=== PATIENT | female | born 1955 | race Caucasian/White ===

== ENCOUNTER 2018-01-28 08:01 | Emergency (ER) | payer MEDICAID, SELFPAY ==
[2018-01-28 08:02] VITALS: BP 126/61; PULSE 63; RESP 16; TEMP 36.6; O2SAT 95; BMI 30.2
--- NOTE | 2018-01-28 08:18 | ED.VISSUMM ---
- ER Visit Summary Date of Service: 01/28/18 Chief Complaint: Back pain History of Present Illness: The patient is a 62 F who presents with back pain. Over the past couple of days her chronic back pain has been getting worse. This morning it was unrelieved with Tylenol should she called EMS. The pain is in the lumbar spine. It is sharp and radiates to each leg. She does have a history of back pain. Denies any dysuria or hematuria. No bowel or bladder incontinence. Falls or any new injuries to the low back. Physical Examination: Vital signs reviewed. HEENT exam unremarkable. Heart is regular rate and rhythm without murmurs. Lungs are clear to auscultation. Abdomen is soft and nontender. Back is diffusely tender in the lumbar region. extremities reveal no edema. Skin exam normal. Neurologic exam normal. Test Results: None indicated Emergency Department Course and Treatment: Patient was treated with Norflex and Toradol intramuscularly Treatment Plan: Patient feels better after medications. This is likely an acute exacerbation of her low back pain. I will give her naproxen and Flexeril to take at home for short period of time. She will need follow-up with her PCP Disposition: Discharge Impression: Acute on chronic low back pain This note was generated with [employer] dictation software. It may contain incorrect words, spelling, and punctuation that were not noted in review of the chart prior to signing ED Disposition - Plan for ED Patient: Chief Complaint: Back Referrals: Kavita Collado MD [Primary Care Provider] -
[2018-01-28] MEDS: Orphenadrine 60 MG/2 ML Ampul IM (08:31)
[2018-01-28] MEDS: Ketorolac 30 MG/ML Syringe IM (08:31)
--- NOTE | 2018-01-28 08:57 | ED.DEP ---
ED Disposition - Plan for ED Patient: Disposition: Home or Assisted Living Chief Complaint: Back Instructions: ED Neck Back Pain General Prescriptions: Naproxen [Naprosyn] 500 mg PO BID PRN #20 tab Cyclobenzaprine [Flexeril] 10 mg PO TID PRN #20 tab PRN Reason: Muscle Spasm Referrals: Kavita Collado MD [Primary Care Provider] -
== END 2018-01-28 09:58 | disposition home or self-care (01) ==
PROVIDERS: Emergency Provider Emergency Medicine; Family Provider Family Medicine; PCP Family Medicine
DX: M54.5 Low back pain (principal); G89.29 Other chronic pain; I25.10 Atherosclerotic heart disease of native coronary artery without angina pectoris; I10 Essential (primary) hypertension; K21.9 Gastro-esophageal reflux disease without esophagitis; Z79.82 Long term (current) use of aspirin; Z79.899 Other long term (current) drug therapy
CPT/HCPCS: 96372; 99284

== ENCOUNTER 2018-09-20 14:48 | Observation (INO) | payer MEDICAID, SELFPAY ==
[2018-09-20] VITALS (8 sets, daily range): BP systolic 134–136; BP diastolic 65–79; PULSE 49–68; RESP 14–20; TEMP 36.6–37; O2SAT 96–98; BMI 35.6; BMI 33.3; BMI 33.4
--- NOTE | 2018-09-20 14:58 | EKG12_ITS ---
Test Reason : CP ADMIT Blood Pressure : / mmHG Vent. Rate : 067 BPM Atrial Rate : 067 BPM P-R Int : 190 ms QRS Dur : 074 ms QT Int : 434 ms P-R-T Axes : 073 006 030 degrees QTc Int : 458 ms Normal sinus rhythm Septal infarct , age undetermined Nonspecific ST segment abnormality Abnormal ECG Confirmed by NIMCO DIAZ, MADELEINE ([id number]), newspaper managing editor MARIPOSA MORGAN ([id number]) on 09/23/2018 2:10:12 PM Referred By: Leilani Chiang Confirmed By:MADELEINE RINALDI MD
--- NOTE | 2018-09-20 15:00 | RAD_ITS ---
STUDY: X-RAY CHEST REASON FOR EXAM: Female, 63 years old. Chest pain. TECHNIQUE: Single AP portable view of the chest. COMPARISON: Comparison is made with prior study dated October 14, 2017. FINDINGS: EKG electrodes are seen. Stable mild increased interstitial markings at the lung bases suggestive of scarring. There has been essentially no change. There is no demonstrated pleural abnormality. Normal size heart. Normal mediastinum and marie. Normal visualized pulmonary arteries. There is atherosclerotic tortuosity of the aortic arch and descending thoracic aorta. There are degenerative changes of the visualized thoracic spine. Normal visualized ribs, clavicles, and shoulders. There is no demonstrated abnormality of the visualized soft tissue structures of the upper abdomen. RAD/Chest 1 View (Portable) IMPRESSION: Stable examination. No acute abnormality is seen. Electronically Signed: Judd Franklin MD at 15:35 EST Tel [phone], Service support ,
--- NOTE | 2018-09-20 15:04 | ED.VISSUMM ---
- ER Visit Summary Date of Service: 09/20/18 Chief Complaint: Chest pain and shortness of breath History of Present Illness: The patient is a 63 F who arrived by ambulance from [facility] because of chest pain and shortness of breath. She was putting away clothes in her room. She is not a good informant because of cognitive impairment. She is presently pain-free. EKG that was obtained by EMS was after her pain resolved. There is no history of PE or DVT. There is a remote history of breast cancer. She denies fever or chills. She denies ocular, visual or auditory symptoms. She presently denies chest pain or shortness of breath. She states she was not sick to her stomach and staff member from [facility] states she was not diaphoretic. She is uncertain whether she was pale. She denies leg pain or leg swelling. Please read written note for complete detail Physical Examination: Vital signs are noted and remarkable for blood pressure 136/65 which is slightly elevated. BMI is 35.6. Head is atraumatic normocephalic. Pupils are equal round reactive. Extraocular muscles are intact. TMs are pearly white with landmarks noted. Nares patent with no drainage. Posterior pharynx without erythema or exudate. Uvula is midline. There is no dysphonia or dysphasia. Trachea is midline. There is no stridor with auscultation of the neck. Heart is regular without murmur, gallop or rub. S1 and S2 are normal. Lungs are clear to auscultation with good movement of air bilaterally. Abdomen is soft nontender no palpable cell mass or abdominal bruit. There is no hepatospleno megaly and negative [place] sign. There is no asymmetry, swelling, discoloration, leg vein distention, palpable cords or tenderness along the distribution of the deep venous system. She is alert she is oriented. Motor sensory are intact. Cranial 2 through 12 are intact. Her affect is normal. Test Results: EKG reveals a sinus rhythm with a ventricular rate of 67. Anterior force is decreased. [place] interval, QRS duration and QT interval are normal. [place] is normal. There is no ischemic changes noted. EKG was obtained when patient was pain-free. Portable chest x-ray reveals normal cardiac silhouette, mediastinum, lung parenchyma. Osseous structures are normal. CBC, basic metabolic panel and troponin are all normal. Emergency Department Course and Treatment: We will obtain EKG because of chest pain and cardiac workup was undertaken. This may also represent GI since she has a history of GERD. Her risk factors for coronary disease are smoking and hypertension. Since there is a remote history of PE one needs to consider PE however doubt since she is not tachycardic or tachypneic presently. Per old records there is history of heart problems when she was younger. Uncertain specifically what the heart problem may be. Treatment Plan: Observation and further testing since patient is symptom free. Disposition: 23-hour observation PCU Impression: Chest pain with dyspnea History of hypertension History of tobacco use History of hypothyroidism This note was generated with [employer] dictation software. It may contain incorrect words, spelling, and punctuation that were not noted in review of the chart prior to signing ED Disposition - Plan for ED Patient: Chief Complaint: Chest Pain Referrals: Care Physician,No Primary [Primary Care Provider] -
--- NOTE | 2018-09-20 15:08 | ED.DCSUM_ITS ---
- ER Visit Summary Date of Service: 09/20/18 Chief Complaint: Chest pain and shortness of breath History of Present Illness: The patient is a 63 F who arrived by ambulance from [facility] because of chest pain and shortness of breath. She was putting away clothes in her room. She is not a good informant because of cognitive impairment. She is presently pain-free. EKG that was obtained by EMS was after her pain resolved. There is no history of PE or DVT. There is a remote history of breast cancer. She denies fever or chills. She denies ocular, visual or auditory symptoms. She presently denies chest pain or shortness of breath. She states she was not sick to her stomach and staff member from [facility] states she was not diaphoretic. She is uncertain whether she was pale. She denies leg pain or leg swelling. Please read written note for complete detail Physical Examination: Vital signs are noted and remarkable for blood pressure 136/65 which is slightly elevated. BMI is 35.6. Head is atraumatic normocephalic. Pupils are equal round reactive. Extraocular muscles are intact. TMs are pearly white with landmarks noted. Nares patent with no drainage. Posterior pharynx without erythema or exudate. Uvula is midline. There is no dysphonia or dysphasia. Trachea is midline. There is no stridor with auscultation of the neck. Heart is regular without murmur, gallop or rub. S1 and S2 are normal. Lungs are clear to auscultation with good movement of air bilaterally. Abdomen is soft nontender no palpable cell mass or abdominal bruit. There is no hepatospleno megaly and negative [place] sign. There is no asymmetry, swelling, discoloration, leg vein distention, palpable cords or tenderness along the distribution of the deep venous system. She is alert she is oriented. Motor sensory are intact. Cranial 2 through 12 are intact. Her affect is normal. Test Results: EKG reveals a sinus rhythm with a ventricular rate of 67. Anterior force is decreased. [place] interval, QRS duration and QT interval are normal. [place] is normal. There is no ischemic changes noted. EKG was obtained when patient was pain-free. Portable chest x-ray reveals normal cardiac silhouette, mediastinum, lung parenchyma. Osseous structures are normal. CBC, basic metabolic panel and troponin are all normal. Emergency Department Course and Treatment: We will obtain EKG because of chest pain and cardiac workup was undertaken. This may also represent GI since she has a history of GERD. Her risk factors for coronary disease are smoking and hypertension. Since there is a remote history of PE one needs to consider PE however doubt since she is not tachycardic or tachypneic presently. Per old records there is history of heart problems when she was younger. Uncertain specifically what the heart problem may be. Treatment Plan: Observation and further testing since patient is symptom free. Disposition: 23-hour observation PCU Impression: Chest pain with dyspnea History of hypertension History of tobacco use History of hypothyroidism This note was generated with [employer] dictation software. It may contain incorrect words, spelling, and punctuation that were not noted in review of the chart prior to signing ED Disposition - Plan for ED Patient: Chief Complaint: Chest Pain Referrals: Care Physician,No Primary [Primary Care Provider] -
[2018-09-20 15:23] LABS: Absolute Lymphocyte Count 1.44 X10^3/ul (0.83-4.51); Absolute Neutrophil Count 4.2 X10^3/uL (2.0-7.7); Basophil# 0.04 X10^3/uL; Basophil% 0.6 % (0-1); Eosinophil# 0.05 X10^3/uL; Eosinophils% 0.8 % (0-5); Hematocrit 37.9 % (37-47); Hemoglobin 12.5 g/dl (12.0-15.0); Lymphocyte # 1.44 X10^3/ul (4.0); Lymphocyte % 23.1 % (19-41); Mean Corpuscular Hgb 30.7 pg (27.0-32.0); Mean Corpuscular Volume 93.1 fL (81-99); Mean Platelet Vol. 9.5 fl (6.2-12.0); Monocyte# 0.55 X10^3/uL; Monocyte% 8.8 % (0-10); Neutrophil # 4.16 X10^3/uL (2.7-7.7); Neutrophil % 66.7 % (47-70); Platelet Count 209 K/mm3 (150-450); RBC Distribution Width CV 12.9 % (11.6-14.6); RBC Distribution Width SD 43.4 fl (35.1-43.9); Red Blood Count 4.07 M/mm3 (4.2-5.4); White Blood Count 6.2 K/mm3 (4.4-11.0)
[2018-09-20 15:33] LABS: Anion Gap 9 (5-15); BUN 12 mg/dL (7-18); BUN/Creat Ratio 13.4 RATIO (10-20); Calcium,Total 8.5 mg/dL (8.5-10.1); Chloride 107 mmol/L (98-107); Creatinine, Serum 0.89 mg/dL (0.55-1.02); EST Glomerular Filtration Rate 68 mL/min (>60); Est Glom Filt Rate - Afr Amer 82 mL/min (>60); Glucose 97 mg/dL (74-106); Potassium 3.8 mmol/L (3.5-5.1); Sodium Level 144 mmol/L (136-145)
[2018-09-20 15:34] LABS: POSITIVE COUNT NO; POSITIVE DIFFERENTIAL NO; POSITIVE MORPHOLOGY NO
--- NOTE | 2018-09-20 15:54 | NURSING ---
125 OBS CP, DYSPNEA KORAM
--- NOTE | 2018-09-20 16:17 | EKG12_ITS ---
Test Reason : CP Blood Pressure : / mmHG Vent. Rate : 067 BPM Atrial Rate : 067 BPM P-R Int : 164 ms QRS Dur : 072 ms QT Int : 434 ms P-R-T Axes : 071 010 021 degrees QTc Int : 458 ms Normal sinus rhythm Septal infarct , age undetermined , cannot be excluded Abnormal ECG Confirmed by NIMCO DIAZ, MADELEINE ([id number]), senior technical editor MARIPOSA MORGAN ([id number]) on 09/23/2018 1:31:59 PM Referred By: Leilani Chiang Confirmed By:MADELEINE RINALDI MD
--- NOTE | 2018-09-20 17:06 | PCM.HP.STD ---
History of Present Illness Date of Admission: 09/20/18 Chief Complaint: chest pain The patient is a 63 year old F past medical history which includes hypertension, hyperlipidemia hypothyroidism and MDRD as well as breast cancer status post left breast mastectomy. She was admitted through the ED on 09/20/2018 with a complaint of chest pain which started while she was in a [facility]. According to case packer and sealer, patient is usually very sedentary was helping the [facility] staff clean out her room. Also exerting herself and cleaning out the room she started having left-sided chest pain. Pain had no aggravating or relieviugn facdtors and was sharp in nature. She has had such recurring chest pain in the past.Chest pain improved with nitroglycerin and aspirin. SHe is being admitted to be managed for chest pain, to rule out ACS. The ED, vitals were essentially stable and chest x-ray showed no acute cardiopulmonary process. Initial troponin was negative. EKG showed no acute ST changes. She is been admitted to be managed for chest pain to rule out ACS. [] Past Medical History Past Medical History (Chronic Problems): Chronic Problems Nicotine abuse (Chronic) HTN (hypertension) (Chronic) Breast cancer (Chronic) Allergies milk Adverse Reaction (Verified 07/23/17 08:39) Diarrhea Home Medications: Ambulatory Orders Medication Instructions Recorded Omeprazole [Prilosec] 20 mg PO DAILY 12/11/16 Simvastatin [Zocor] 20 mg PO QHS 12/11/16 Amlodipine [Norvasc] 10 mg PO DAILY 04/04/17 Cholecalciferol (Vitamin D3) 2,000 units PO DAILY 04/04/17 [Vitamin D3] Loratadine 10 mg PO DAILY 04/04/17 Mirabegron [Myrbetriq] 50 mg PO DAILY 07/23/17 Tamoxifen Citrate [Nolvadex] 20 mg PO DAILY 07/23/17 Paliperidone [Paliperidone ER] 9 mg PO QHS 08/21/17 Ranitidine [Zantac] 150 mg PO BID 08/21/17 Senna [Senokot] 1 tablet PO BID 08/21/17 Solifenacin Succinate [Vesicare] 10 mg PO QHS 08/21/17 Acetaminophen [Tylenol] 325 mg PO Q6H PRN PRN 09/20/18 Aspirin E.C. [Ecotrin] 81 mg PO DAILY 09/20/18 Calcium Carbonate/Vitamin D3 1 tab PO DAILY 09/20/18 [Calcium 600-Vit D3 200 Tablet] Hydrochlorothiazide 12.5 mg PO DAILY 09/20/18 Levothyroxine Sodium [Synthroid] 75 mcg PO DAILY 09/20/18 Lisinopril [Zestril] 40 mg PO DAILY 09/20/18 Metoprolol Tartrate [Lopressor 25 mg PO BID 09/20/18 (beta porfirio)] Surgical History: - - left breast mastectomy Psychiatric History: Schizophrenia DIRECTOR EDUCATION History: No pertinent DIRECTOR EDUCATION history Smoking Status: Current every day smoker Tobacco Use: Cigarettes, Cigars - *Family History Maternal History Items: - Paternal History Items: - Review of Systems Constitutional: Denies: Chills, Fever, Malaise, Weakness, Weight Change, Fatigue HEENT: Denies: Head Aches, Sinus Congestion, Sinus Drainage Cardiovascular: Reports: Chest Pain. Denies: Chest Pressure, Chest Tightness, Edema, Light Headedness, Orthopnea, Palpitations, Syncope Respiratory: Denies: Cough, Pleuritic Pain, Shortness of Breath, Shortness of breath at rest, Sputum production Gastrointestinal: Denies: Abdominal Pain, Nausea, Vomiting Genitourinary: Denies: Dysuria Musculoskeletal: Denies: Joint Pain, Joint Tenderness Skin: Denies: Rash, Wounds Neurological: Denies: Numbness, Tingling, Focal weakness Psychiatric: Denies: Anxiety, Depression, Homicidal Ideations, Suicidal Ideations Hematologic/ Lymphatic: Denies: Easy Bruising, Easy Bleeding VTE Information - Inpt Only VTE Present on Admission: No VTE Pharm Prophylaxis ordered?: Yes - Physical Exam General: Alert, Oriented x3, Cooperative, No apparent distress HEENT: Atraumatic, PERRLA, EOMI, Normocephalic Oral: Moist Mucosa Neck: Supple, No JVD, Negative Carotid Bruits Lungs: Clear to auscultation, Normal air movement, No rhonchi, No wheeze, No rales Cardiovascular: Regular rate, Regular Rhythm, Normal S1, Normal S2, No murmurs Abdomen: Bowel Sounds Present, Soft, Non Tender, Non-Distended, No Hepato-splenomegaly Extremities: No clubbing, No cyanosis, No edema, Capillary Refill Less than 3 Seconds Skin: No rashes, No breakdown Musculoskeletal: No Tenderness to Palpation of Joints or Extremities Lymphatic: No Cervical, Supraclavicular, or Inguinal Adenopathy Neurological: Cranial nerves II-XII grossly intact, Neuro grossly intact, Motor Exam 5/5 strength throughout Psych/Mental Status: Normal Affect, Appropriate, Alert and oriented to time, place, person, mood and affect Vital Signs Temp Pulse Resp BP Pulse Ox 98 F 68 18 134/77 H 97 09/20/18 16:25 09/20/18 16:25 09/20/18 16:25 09/20/18 16:25 09/20/18 16:25 Oxygen Delivery Method Room Air Weight: 182 lb 8.684 oz Body Mass Index (BMI) 33.3 Laboratory Tests Past 24 Hrs 09/20/18 09/20/18 15:00 15:00 WBC 6.2 RBC 4.07 L Hgb 12.5 Hct 37.9 MCV 93.1 MCH 30.7 MCHC 33.0 RDW 12.9 RDW Differential 43.4 Plt Count 209 MPV 9.5 Immature Gran % (Auto) 0.000 Neut % (Auto) 66.7 Lymph % (Auto) 23.1 [place] % (Auto) 8.8 Eos % (Auto) 0.8 Baso % (Auto) 0.6 Absolute Neuts (auto) 4.2 Absolute Lymphs (auto) 1.44 Total Counted Not Reportable Sodium 144 Potassium 3.8 Chloride 107 Carbon Dioxide 28.0 Anion Gap 9 BUN 12 Creatinine 0.89 Estim Creat Clear Calc 52.50 Est GFR (MDRD) Af Amer 82 Est GFR (MDRD) Non-Af 68 BUN/Creatinine Ratio 13.4 Glucose 97 Calcium 8.5 Troponin I < 0.015 Diagnostic Data Chest X-Ray 09/20/18 15:00 IMPRESSION: Stable examination. No acute abnormality is seen. Electronically Signed: Judd Franklin MD at 15:35 EST Tel [phone], Service support , Assessment/Plan All Active Problems Lives in [facility] (Acute) CAD (coronary artery disease) (Acute) Acute bronchitis (Acute) Chest pain (Acute) 63-year-old female presents with a complaint of chest pain 1. Chest pain, to rule out ACS has had repeated episodes of such chest pain, according to her dependency case manager Nuclear stress testing January 2016 which was negative. Troponin was negative. To PCU with telemetry. Cycle troponin. Nitroglycerin as needed. Aspirin 81 mg daily. Stress test tomorrow. Low clinical suspicion for PE and so not do CT PE 2. Hypertension: controlled. On amlodipine 10mg daily, hydrochlorothiazide 12.5 mg daily, lisinopril 40 mg daily and metoprolol 25 mg twice daily. We will continue to monitor. 4. Hypothyroidism: On Synthroid. 5.-Hyperlipidemia: On simvastatin 10 mg nightly. 5 schizophrenia: on paliperidone. 7. History of breast cancer status post left mastectomy: On tamoxifen. Breast cancer was about 10 years ago approximately. DVT prophylaxis: heparin Code status: Patient and case packer and sealer counseled extensively about different types of CODE STATUS including full code, DNR CCA and DNR CCA. Patient elects to be full code. Total [id number] time 17 minutes Code Visit OBSV E&M: 61947 Initial observation care L3 Procedures: 65846 Advncd Care Plan 30 Min
--- NOTE | 2018-09-20 17:12 | HP.PCM_ITS ---
History of Present Illness Date of Admission: 09/20/18 Chief Complaint: chest pain The patient is a 63 year old F past medical history which includes hypertension, hyperlipidemia hypothyroidism and MDRD as well as breast cancer status post left breast mastectomy. She was admitted through the ED on 09/20/2018 with a complaint of chest pain which started while she was in a long term. According to outsole caser, patient is usually very sedentary was helping the long term staff clean out her room. Also exerting herself and cleaning out the room she started having left-sided chest pain. Pain had no aggravating or relieviugn facdtors and was sharp in nature. She has had such recurring chest pain in the p ast.Chest pain improved with nitroglycerin and aspirin. SHe is being admitted to be managed for chest pain, to rule out ACS. The ED, vitals were essentially stable and chest x-ray showed no acute cardiopulmonary process. Initial troponin was negative. EKG showed no acute ST changes. She is been admitted to be managed for chest pain to rule out ACS. [] Past Medical History Past Medical History (Chronic Problems): Chronic Problems Nicotine abuse (Chronic) HTN (hypertension) (Chronic) Breast cancer (Chronic) Allergies milk Adverse Reaction (Verified 07/23/17 08:39) Diarrhea Home Medications: Ambulatory Orders Medication Instructions Recorded Omeprazole [Prilosec] 20 mg PO DAILY 12/11/16 Simvastatin [Zocor] 20 mg PO QHS 12/11/16 Amlodipine [Norvasc] 10 mg PO DAILY 04/04/17 Cholecalciferol (Vitamin D3) 2,000 units PO DAILY 04/04/17 [Vitamin D3] Loratadine 10 mg PO DAILY 04/04/17 Mirabegron [Myrbetriq] 50 mg PO DAILY 07/23/17 Tamoxifen Citrate [Nolvadex] 20 mg PO DAILY 07/23/17 Paliperidone [Paliperidone ER] 9 mg PO QHS 08/21/17 Ranitidine [Zantac] 150 mg PO BID 08/21/17 Senna [Senokot] 1 tablet PO BID 08/21/17 Solifenacin Succinate [Vesicare] 10 mg PO QHS 08/21/17 Acetaminophen [Tylenol] 325 mg PO Q6H PRN PRN 09/20/18 Aspirin E.C. 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 Denies: Chest Pressure, Chest Tightness, Edema, Light Headedness, Orthopnea, Palpitations, Syncope Respiratory: Denies: Cough, Pleuritic Pain, Shortness of Breath, Shortness of breath at rest, Sputum production Gastrointestinal: Denies: Abdominal Pain, Nausea, Vomiting Genitourinary: Denies: Dysuria Musculoskeletal: Denies: Joint Pain, Joint Tenderness Skin: Denies: Rash, Wounds Neurological: Denies: Numbness, Tingling, Focal weakness Psychiatric: Denies: Anxiety, Depression, Homicidal Ideations, Suicidal Ideations Hematologic/ Lymphatic: Denies: Easy Bruising, Easy Bleeding VTE Information - Inpt Only VTE Present on Admission: No VTE Pharm Prophylaxis ordered?: Yes - Physical Exam General: Alert, Oriented x3, Cooperative, No apparent distress HEENT: Atraumatic, PERRLA, EOMI, Normocephalic Oral: Moist Mucosa Neck: Supple, No JVD, Negative Carotid Bruits Lungs: Clear to auscultation, Normal air movement, No rhonchi, No wheeze, No rales Cardiovascular: Regular rate, Regular Rhythm, Normal S1, Normal S2, No murmurs Abdomen: Bowel Sounds Present, Soft, Non Tender, Non-Distended, No Hepato- splenomegaly Extremities: No clubbing, No cyanosis, No edema, Capillary Refill Less than 3 Seconds Skin: No rashes, No breakdown Musculoskeletal: No Tenderness to Palpation of Joints or Extremities Lymphatic: No Cervical, Supraclavicular, or Inguinal Adenopathy Neurological: Cranial nerves II-XII grossly intact, Neuro grossly intact, Motor Exam 5/5 strength throughout Psych/Mental Status: Normal Affect, Appropriate, Alert and oriented to time, place, person, mood and affect Vital Signs Temp Pulse Resp BP Pulse Ox 98 F 68 18 134/77 H 97 09/20/18 16:25 09/20/18 16:25 09/20/18 16:25 09/20/18 16:25 09/20/18 16:25 Oxygen Delivery Method Room Air Weight: 182 lb 8.684 oz Body Mass Index (BMI) 33.3 Laboratory Tests Past 24 Hrs 09/20/18 09/20/18 15:00 15:00 WBC 6.2 RBC 4.07 L Hgb 12.5 Hct 37.9 MCV 93.1 MCH 30.7 MCHC 33.0 RDW 12.9 RDW Differential 43.4 Plt Count 209 MPV 9.5 Immature Gran % (Auto) 0.000 Neut % (Auto) 66.7 Lymph % (Auto) 23.1 Sutter % (Auto) 8.8 Eos % (Auto) 0.8 Baso % (Auto) 0.6 Absolute Neuts (auto) 4.2 Absolute Lymphs (auto) 1.44 Total Counted Not Reportable Sodium 144 Potassium 3.8 Chloride 107 Carbon Dioxide 28.0 Anion Gap 9 BUN 12 Creatinine 0.89 Estim Creat Clear Calc 52.50 Est GFR (MDRD) Af Amer 82 Est GFR (MDRD) Non-Af 68 BUN/Creatinine Ratio 13.4 Glucose 97 Calcium 8.5 Troponin I < 0.015 Diagnostic Data Chest X-Ray 09/20/18 15:00 IMPRESSION: Stable examination. No acute abnormality is seen. Electronically Signed: Judd Franklin MD at 15:35 EST Tel [phone], Service support , Assessment/Plan All Active Problems Lives in long term (Acute) CAD (coronary artery disease) (Acute) Acute bronchitis (Acute) Chest pain (Acute) 63-year-old female presents with a complaint of chest pain 1. Chest pain, to rule out ACS * has had repeated episodes of such chest pain, according to her adult protective caseworker * Nuclear stress testing January 2016 which was negative. * Troponin was negative. * To PCU with telemetry. Cycle troponin. * Nitroglycerin as needed. Aspirin 81 mg daily. * Stress test tomorrow. * Low clinical suspicion for PE and so not do CT PE * 2. Hypertension: controlled. On amlodipine 10mg daily, hydrochlorothiazide 12.5 mg daily, lisinopril 40 mg daily and metoprolol 25 mg twice daily. We will continue to monitor. 4. Hypothyroidism: On Synthroid. 5.-Hyperlipidemia: On simvastatin 10 mg nightly. 5 schizophrenia: on paliperidone. 7. History of breast cancer status post left mastectomy: On tamoxifen. Breast cancer was about 10 years ago approximately. DVT prophylaxis: heparin Code status: Patient and outsole caser counseled extensively about different types of CODE STATUS including full code, DNR CCA and DNR CCA. Patient elects to be full code. Total [id number] time 17 minutes Code Visit OBSV E&M: 75265 Initial observation care L3 Procedures: 25295 Advncd Care Plan 30 Min
[2018-09-20] MEDS: Famotidine 20 MG Tablet PO (21:21)
[2018-09-20] MEDS: Senna Tablet 1 TABLET PO (21:21)
[2018-09-20] MEDS: Tolterodine Tartrate 4 MG CAP.SA PO (21:21)
[2018-09-20] MEDS: Metoprolol Tartrate 25 MG Tablet PO (21:21)
[2018-09-20] MEDS: 0.9% NaCl Peripheral Flush Adult/Peds IV (21:22)
[2018-09-20] MEDS: Heparin Injection (Vial) 5,000 UNIT/ML VIAL 5000 UNIT SC (21:22)
[2018-09-20] MEDS: Atorvastatin Calcium 10 MG Tablet PO (21:22)
[2018-09-21] VITALS (7 sets, daily range): BP systolic 123–148; BP diastolic 63–86; PULSE 55–71; RESP 16–18; TEMP 36.6–36.8; O2SAT 94–96
[2018-09-21] MEDS: Aspirin E.C. 81 MG Tablet PO (05:29)
[2018-09-21] MEDS: Lisinopril 40 MG Tablet PO (05:30)
[2018-09-21] MEDS: Levothyroxine 75 MCG Tablet PO (05:30)
[2018-09-21 05:40] LABS: Absolute Lymphocyte Count 1.43 X10^3/ul (0.83-4.51); Absolute Neutrophil Count 2.6 X10^3/uL (2.0-7.7); Basophil# 0.05 X10^3/uL; Basophil% 1.1 % (0-1); Eosinophil# 0.04 X10^3/uL; Eosinophils% 0.9 % (0-5); Hematocrit 40.5 % (37-47); Hemoglobin 13.5 g/dl (12.0-15.0); Lymphocyte # 1.43 X10^3/ul (4.0); Lymphocyte % 31.6 % (19-41); Mean Corp Hgb Conc 33.3 g/gl (32-36); Mean Corpuscular Hgb 31.2 pg (27.0-32.0); Mean Corpuscular Volume 93.5 fL (81-99); Mean Platelet Vol. 9.6 fl (6.2-12.0); Monocyte# 0.44 X10^3/uL; Monocyte% 9.7 % (0-10); Neutrophil # 2.57 X10^3/uL (2.7-7.7); Neutrophil % 56.7 % (47-70); Platelet Count 212 K/mm3 (150-450); RBC Distribution Width CV 12.9 % (11.6-14.6); RBC Distribution Width SD 43.1 fl (35.1-43.9); Red Blood Count 4.33 M/mm3 (4.2-5.4); White Blood Count 4.5 K/mm3 (4.4-11.0)
[2018-09-21 05:44] LABS: POSITIVE COUNT NO; POSITIVE DIFFERENTIAL NO; POSITIVE MORPHOLOGY NO
--- NOTE | 2018-09-21 05:55 | EKG12_ITS ---
Test Reason : AM EKG Blood Pressure : / mmHG Vent. Rate : 058 BPM Atrial Rate : 058 BPM P-R Int : 162 ms QRS Dur : 088 ms QT Int : 482 ms P-R-T Axes : 067 012 073 degrees QTc Int : 473 ms Sinus bradycardia Septal infarct , age undetermined , cannot be excluded Abnormal ECG Confirmed by NIMCO DIAZ, MADELEINE ([id number]), online content editor MARIPOSA MORGAN ([id number]) on 09/23/2018 1:50:25 PM Referred By: Leilani Chiang Confirmed By:MADELEINE RINALDI MD
[2018-09-21 05:58] LABS: Anion Gap 7 (5-15); BUN 11 mg/dL (7-18); BUN/Creat Ratio 14.2 RATIO (10-20); Calcium,Total 8.3 mg/dL (8.5-10.1); Chloride 113 mmol/L (98-107); Creatinine, Serum 0.78 mg/dL (0.55-1.02); EST Glomerular Filtration Rate 80 mL/min (>60); Est Glom Filt Rate - Afr Amer 97 mL/min (>60); Glucose 91 mg/dL (74-106); Potassium 3.7 mmol/L (3.5-5.1); Sodium Level 144 mmol/L (136-145)
[2018-09-21 06:04] LABS: International Normalized Ratio 1.1; Partial Thromboplast Time 25.5 Seconds (24.1-36.2); Prothrombin Time (Protime)PT. 13.9 SECONDS (11.7-14.9)
[2018-09-21] MEDS: hydroCHLOROthiazide 12.5mg 12.5 MG PO (08:50)
[2018-09-21] MEDS: Metoprolol Tartrate 25 MG Tablet PO (08:50)
[2018-09-21] MEDS: Loratadine 10 MG Tablet PO (08:50)
[2018-09-21] MEDS: Famotidine 20 MG Tablet PO (08:51)
[2018-09-21] MEDS: amLODIPine 10 MG Tablet PO (08:51)
[2018-09-21] MEDS: Calcium Carb/Vitamin D 1 TABLET Tablet PO (08:51)
[2018-09-21] MEDS: Mirabegron 50 MG TAB.ER.24H PO (08:51)
[2018-09-21] MEDS: Tamoxifen 10 MG Tablet 20 MG PO (08:51)
[2018-09-21] MEDS: Pantoprazole Sodium 20 MG Tablet PO (08:52)
[2018-09-21] MEDS: Senna Tablet 1 TABLET PO (08:52)
--- NOTE | 2018-09-21 11:03 | STRESSREP_ITS ---
Stress Test Report Date: 02/05/2018 Procedure: Pharmacologic stress nuclear imaging study Indications: Chest pain Consent: Per the patient Procedure: The patient underwent pharmacologic (Regadenoson) evaluation with a peak heart rate of 99 beats per minute (62 predicted maximal heart rate) and a peak blood pressure of 134/78 mmHg. The baseline ECG demonstrated normal sinus rhythm. The peak pharmacologic ECG demonstrated no obvious ECG changes. There were no cardiac dysrhythmias pretest, during pharmacologic infusion, or recovery. There was no complaint of chest discomfort during pharmacologic infusion or recovery. The examination was discontinued secondary to completion of protocol. Impression: 1. Pharmacologic (Regadenoson) evaluation 2. Peak pharmacologic ECG with no obvious ECG changes. 3. There were no cardiac dysrhythmias pretest, during pharmacologic infusion, or recovery. 4. Nuclear images pending Myocardial perfusion imaging study: Technique: The patient was injected with 11.6 millicuries of technetium 99m Cardiolite and subsequently rest SPECT Cardiolite nuclear imaging was obtained in the horizontal long, vertical long, and short axis views. The patient underwent pharmacologic (Regadenoson) evaluation with a peak heart rate of 99 beats per minute (62% percent predicted maximal heart rate) and a peak blood pressure of 134/78 mmHg. The patient was injected with 32.1 millicuries of technetium 99m Cardiolite and subsequently stress SPECT Cardiolite nuclear imaging was obtained in the horizontal long, vertical long, and short axis views. A gated Cardiolite study at peak stress was obtained. Interpretation: Rest and stress SPECT Cardiolite nuclear imaging status post realignment, normalization, and attenuation correction demonstrate relative uniform tracer uptake and myocardial perfusion appearing within normal limits. There is end systolic thickening and brightening. The gated Cardiolite study demonstrates myocardial thickening and inward wall motion. The reported LVEF is 87 %. Impression: 1. Rest and stress SPECT Cardiolite nuclear imaging demonstrate relative uniform tracer uptake and myocardial perfusion appearing within normal limits. 2. The gated Cardiolite study reports an LVEF of 87 %. This note was generated with Spotwiseation software. It may contain incorrect words, spelling, and punctuation that were not noted in checking the note before signing.
--- NOTE | 2018-09-21 11:29 | PCM.DC ---
- Discharge Diagnoses Current Active Problems: (1) Atypical Chest Pain, non-cardiac etiology suspected, possible Musculoskeletal (2) Hypertension (3) Hyperlipidemia (4) GERD (5) History of Breast CA (6) Schizophrenia/Anxiety and Depression (7) Hypothyroidism (8) Tobacco Use You will use the following diet at home:: Cardiac Your food should be the consistency of: Regular Your liquids should be the consistency of: Regular/Thin Discharge Activity: Return to Normal Activity Weight Bearing Status: Weight bearing as tolerated Call your doctor if you observe: Fever of 101 or Higher, Inability to urinate, Inability to have a bowel movement, Shortness of breath, Dizziness, Fainting spells, Chest pain, Uncontrolled pain Instructions: ED Chest Pain NonCardiac, ED Chest Pain Atypical Unkn Cause Additional Instructions: The chest pain you experienced is suspected to not from your heart. The stress test is negative and your heart squeezed normally. The clinical research monitor you wore showed no problem with the rhythm of your heart. Additionally, the cardiac enzyme series performed remained normal. Sometimes chest pain can come from a problem with the muscles or skeleton and/or associated with straining or doing some strenuous activity you do not normally perform. Generally Aleve or Motrin will help allieviate this discomfort if these medications are appropriate for you to take. Chest pain can also be associated with anxiety and with this you frequently have racing heart, trouble sleeping and irritability. It can also come from gastroesophageal reflux disease or heartburn. People who smoke experience increased heartburn because nicotine decreases the pressure in the lower esophageal sphincter and causes reflux. This type of discomfort is well treated with drinking a large glass of cold water which strips the acid out of the esophagus or taking Mylanta, Maalox or Pepto-Bismol. Other foods to avoid if you have reflux are chocolate, peppermint and calcium containing products such as Tums. Allergies/Adverse Reactions: Allergies milk Adverse Reaction (Verified 07/23/17 08:39) Diarrhea Medications to take at Discharge Omeprazole [Prilosec] 20 mg PO DAILY 12/11/16 Simvastatin [Zocor] 20 mg PO QHS 12/11/16 Amlodipine [Norvasc] 10 mg PO DAILY 04/04/17 Cholecalciferol (Vitamin D3) [Vitamin D3] 2,000 units PO DAILY 04/04/17 Loratadine 10 mg PO DAILY 04/04/17 Mirabegron [Myrbetriq] 50 mg PO DAILY 07/23/17 Tamoxifen Citrate [Nolvadex] 20 mg PO DAILY 07/23/17 Paliperidone [Paliperidone ER] 9 mg PO QHS 08/21/17 Ranitidine [Zantac] 150 mg PO BID 08/21/17 Senna [Senokot] 1 tablet PO BID 08/21/17 Solifenacin Succinate [Vesicare] 10 mg PO QHS 08/21/17 Acetaminophen [Tylenol] 325 mg PO Q6H PRN PRN 09/20/18 Aspirin E.C. [Ecotrin] 81 mg PO DAILY 09/20/18 Calcium Carbonate/Vitamin D3 [Calcium 600-Vit D3 200 Tablet] 1 tab PO DAILY 09/20/18 Hydrochlorothiazide 12.5 mg PO DAILY 09/20/18 Levothyroxine Sodium [Synthroid] 75 mcg PO DAILY 09/20/18 Lisinopril [Zestril] 40 mg PO DAILY 09/20/18 Metoprolol Tartrate [Lopressor (beta porfirio)] 25 mg PO BID 09/20/18 Primary Care Physician: Care Physician,No Primary [Primary Care Provider] - Please follow up with your Primary Care Physician in: Follow-up with PCP within 3-5 days to review admission. Test Results: Test results from this visit will be discussed in further detail at your follow-up appointment, if applicable. Proposed Discharge Date: 09/21/18
--- NOTE | 2018-09-21 11:34 | DCINST_ITS ---
- Discharge Diagnoses Current Active Problems: (1) Atypical Chest Pain, non-cardiac etiology suspected, possible Musculoskeletal (2) Hypertension (3) Hyperlipidemia (4) GERD (5) History of Breast CA (6) Schizophrenia/Anxiety and Depression (7) Hypothyroidism (8) Tobacco Use You will use the following diet at home:: Cardiac Your food should be the consistency of: Regular Your liquids should be the consistency of: Regular/Thin Discharge Activity: Return to Normal Activity Weight Bearing Status: Weight bearing as tolerated Call your doctor if you observe: Fever of 101 or Higher, Inability to urinate, Inability to have a bowel movement, Shortness of breath, Dizziness, Fainting spells, Chest pain, Uncontrolled pain Instructions: ED Chest Pain NonCardiac, ED Chest Pain Atypical Unkn Cause Additional Instructions: The chest pain you experienced is suspected to not from your heart. The stress test is negative and your heart squeezed normally. The channel lip wetter you wore showed no problem with the rhythm of your heart. Additionally, the cardiac enzyme series performed remained normal. Sometimes chest pain can come from a problem with the muscles or skeleton and/or associated with straining or doing some strenuous activity you do not normally perform. Generally Aleve or Motrin will help allieviate this discomfort if these medications are appropriate for you to take. Chest pain can also be associated with anxiety and with this you frequently have racing heart, trouble sleeping and irritability. It can also come from gastroesophageal reflux disease or heartburn. People who smoke experience increased heartburn because nicotine decreases the pressure in the lower esophageal sphincter and causes reflux. This type of discomfort is well treated with drinking a large glass of cold water which strips the acid out of the esophagus or taking Mylanta, Maalox or Pepto- Bismol. Other foods to avoid if you have reflux are chocolate, peppermint and calcium containing products such as Tums. Allergies/Adverse Reactions: Allergies milk Adverse Reaction (Verified 07/23/17 08:39) Diarrhea Medications to take at Discharge Omeprazole [Prilosec] 20 mg PO DAILY 12/11/16 Simvastatin [Zocor] 20 mg PO QHS 12/11/16 Amlodipine [Norvasc] 10 mg PO DAILY 04/04/17 Cholecalciferol (Vitamin D3) [Vitamin D3] 2,000 units PO DAILY 04/04/17 Loratadine 10 mg PO DAILY 04/04/17 Mirabegron [Myrbetriq] 50 mg PO DAILY 07/23/17 Tamoxifen Citrate [Nolvadex] 20 mg PO DAILY 07/23/17 Paliperidone [Paliperidone ER] 9 mg PO QHS 08/21/17 Ranitidine [Zantac] 150 mg PO BID 08/21/17 Senna [Senokot] 1 tablet PO BID 08/21/17 Solifenacin Succinate [Vesicare] 10 mg PO QHS 08/21/17 Acetaminophen [Tylenol] 325 mg PO Q6H PRN PRN 09/20/18 Aspirin E.C. [Ecotrin] 81 mg PO DAILY 09/20/18 Calcium Carbonate/Vitamin D3 [Calcium 600-Vit D3 200 Tablet] 1 tab PO DAILY 09/20/18 Hydrochlorothiazide 12.5 mg PO DAILY 09/20/18 Levothyroxine Sodium [Synthroid] 75 mcg PO DAILY 09/20/18 Lisinopril [Zestril] 40 mg PO DAILY 09/20/18 Metoprolol Tartrate [Lopressor (beta porfirio)] 25 mg PO BID 09/20/18 Primary Care Physician: Care Physician,No Primary [Primary Care Provider] - Please follow up with your Primary Care Physician in: Follow-up with PCP within 3-5 days to review admission. Test Results: Test results from this visit will be discussed in further detail at your follow- up appointment, if applicable. Proposed Discharge Date: 09/21/18
--- NOTE | 2018-09-21 11:44 | NURSING ---
called [facility], to be here at 1300 to transport pt home.
--- NOTE | 2018-09-21 11:56 | PHA.DC.MR ---
Pharmacy Service has performed discharge medication reconciliation for this patient. The patient's discharge medication list was reviewed for discrepancies and discrepancies were resolved. Home Medications Omeprazole [Prilosec] 20 mg PO DAILY 12/11/16 Simvastatin [Zocor] 20 mg PO QHS 12/11/16 Amlodipine [Norvasc] 10 mg PO DAILY 04/04/17 Cholecalciferol (Vitamin D3) [Vitamin D3] 2,000 units PO DAILY 04/04/17 Loratadine 10 mg PO DAILY 04/04/17 Mirabegron [Myrbetriq] 50 mg PO DAILY 07/23/17 Tamoxifen Citrate [Nolvadex] 20 mg PO DAILY 07/23/17 Paliperidone [Paliperidone ER] 9 mg PO QHS 08/21/17 Ranitidine [Zantac] 150 mg PO BID 08/21/17 Senna [Senokot] 1 tablet PO BID 08/21/17 Solifenacin Succinate [Vesicare] 10 mg PO QHS 08/21/17 Acetaminophen [Tylenol] 325 mg PO Q6H PRN PRN 09/20/18 Aspirin E.C. [Ecotrin] 81 mg PO DAILY 09/20/18 Calcium Carbonate/Vitamin D3 [Calcium 600-Vit D3 200 Tablet] 1 tab PO DAILY 09/20/18 Hydrochlorothiazide 12.5 mg PO DAILY 09/20/18 Levothyroxine Sodium [Synthroid] 75 mcg PO DAILY 09/20/18 Lisinopril [Zestril] 40 mg PO DAILY 09/20/18 Metoprolol Tartrate [Lopressor (beta porfirio)] 25 mg PO BID 09/20/18
--- NOTE | 2018-09-21 13:31 | PCM.DC.SUM ---
Discharge Date and Diagnosis Date of Admission: 09/20/18 Date of Discharge: 09/21/18 - Primary Discharge Diagnosis (1) Atypical Chest Pain, non-cardiac etiology suspected, possible Musculoskeletal (2) Hypertension (3) Hyperlipidemia (4) GERD (5) History of Breast CA (6) Schizophrenia/Anxiety and Depression (7) Hypothyroidism (8) Tobacco Use - Secondary Discharge Diagnosis Chronic Problems Nicotine abuse (Chronic) HTN (hypertension) (Chronic) Breast cancer (Chronic) Hospital Course and Treatment Imaging Results: 09/21/18 05:55 Nuclear Stress Test - Chemical [NM] AM (NON MEDS) Operations: None Procedures: EKG, Stress test Summary of Care Provided: The patient is a 63 y/o F w/ PMHx: Obesity, HTN, HLD, GERD, History of Breast CA, Schizophrenia/Anxiety and Depression, Hypothyroidism, Tobacco use who presented to the [facility] ED on 09/20/18 with complaint of the onset of chest pain. In the ED work-up included EKG sinus rhythm without evidence of acute ischemia, CXR without acute process, unremarkable CBC and chemistry, cardiac enzyme set x 1 normal. The patient was admitted to PCU, maintained on cardiac telemetry, serial cardiac enzymes were obtained as well as serial EKGs which remained unremarkable. Patient underwent AM 09/21/18 stress testing which was noted to be negative for inducible ischemia. Patient was discharged to home in stable condition with recommendation for follow-up with primary care physician within 3-5 days. DAY OF DISCHARGE PROGRESS NOTE: Subjective: Patient without acute event overnight per self and nursing report. Patient denied any ongoing or recurrent chest discomfort. Patient notes she feels well and is at her baseline. She states she is normally not extremely active but had been with onset of the discomfort. Patient denies fever, chills, nausea, emesis, abdominal pain or dyspnea. Patient agreeable to discharge to home. Patient will be discharged with follow-up with primary care physician within 3-5 days. Objective: T 98, heart rate 61, BP 123/63, respiratory rate 18, 94% on room air. Physical Examination: General: awake, alert, oriented x 3 and cooperative, seated upright in the bed, NAD. Skin: normal color, turgor, no icterus, cyanosis. HEENT: AT/NC, EOMI, PERRLA, MMM. Lungs: CTA bilaterally, moderate effort, mild decrease BL bases, no rales, ronchi or wheezing; Heart: Regular rate and rhythm; no gallop, rub audible. Abdomen: soft, obese, NTTP, ND, normal BS. Extremities: no cyanosis, clubbing, or edema. Neurological: patient awake, alert, oriented x 3; cognitive function appears intact upon questioning,; pupils equally reactive to light and accomodation; cranial nerves II-XII grossly normal, moving all 4 extremities, strength appropriate. Psychiatric: affect appears normal, no acute evidence of depressive or anxiety feelings. Assessment and Plan: Please see hospital summary above. - Physical Exam Vital Signs Temp Pulse Resp BP Pulse Ox 98.0 F 61 18 123/63 H 94 09/21/18 11:25 09/21/18 11:25 09/21/18 11:25 09/21/18 11:25 09/21/18 11:25 Oxygen Delivery Method Room Air Weight: 182 lb 8.684 oz Body Mass Index (BMI) 33.3 Intake and Output for Last 24 Hours 09/19/18 09/20/18 09/21/18 23:59 23:59 23:59 Intake Total 240 / 240 480 / 480 Balance 240 / 240 480 / 480 Laboratory Tests Past 24 Hrs 09/20/18 09/20/18 09/20/18 15:00 15:00 18:30 WBC 6.2 RBC 4.07 L Hgb 12.5 Hct 37.9 MCV 93.1 MCH 30.7 MCHC 33.0 RDW 12.9 RDW Differential 43.4 Plt Count 209 MPV 9.5 Immature Gran % (Auto) 0.000 Neut % (Auto) 66.7 Lymph % (Auto) 23.1 [place]ondera % (Auto) 8.8 Eos % (Auto) 0.8 Baso % (Auto) 0.6 Absolute Neuts (auto) 4.2 Absolute Lymphs (auto) 1.44 Total Counted Not Reportable PT INR APTT Sodium 144 Potassium 3.8 Chloride 107 Carbon Dioxide 28.0 Anion Gap 9 BUN 12 Creatinine 0.89 Estim Creat Clear Calc 52.50 Est GFR (MDRD) Af Amer 82 Est GFR (MDRD) Non-Af 68 BUN/Creatinine Ratio 13.4 Glucose 97 Calcium 8.5 Troponin I < 0.015 < 0.015 09/20/18 09/21/18 09/21/18 21:00 05:20 05:20 WBC 4.5 RBC 4.33 Hgb 13.5 Hct 40.5 MCV 93.5 MCH 31.2 MCHC 33.3 RDW 12.9 RDW Differential 43.1 Plt Count 212 MPV 9.6 Immature Gran % (Auto) 0.000 Neut % (Auto) 56.7 Lymph % (Auto) 31.6 [place] % (Auto) 9.7 Eos % (Auto) 0.9 Baso % (Auto) 1.1 H Absolute Neuts (auto) 2.6 Absolute Lymphs (auto) 1.43 Total Counted Not Reportable PT INR APTT Sodium 144 Potassium 3.7 Chloride 113 H Carbon Dioxide 24.0 Anion Gap 7 BUN 11 Creatinine 0.78 Estim Creat Clear Calc 59.90 Est GFR (MDRD) Af Amer 97 Est GFR (MDRD) Non-Af 80 BUN/Creatinine Ratio 14.2 Glucose 91 Calcium 8.3 L Troponin I < 0.015 09/21/18 05:20 WBC RBC Hgb Hct MCV MCH MCHC RDW RDW Differential Plt Count MPV Immature Gran % (Auto) Neut % (Auto) Lymph % (Auto) [place] % (Auto) Eos % (Auto) Baso % (Auto) Absolute Neuts (auto) Absolute Lymphs (auto) Total Counted PT 13.9 INR 1.1 APTT 25.5 Sodium Potassium Chloride Carbon Dioxide Anion Gap BUN Creatinine Estim Creat Clear Calc Est GFR (MDRD) Af Amer Est GFR (MDRD) Non-Af BUN/Creatinine Ratio Glucose Calcium Troponin I Discharge Activity: Return to Normal Activity Weight Bearing Status: Weight bearing as tolerated Call your doctor if you observe: Fever of 101 or Higher, Inability to urinate, Inability to have a bowel movement, Shortness of breath, Dizziness, Fainting spells, Chest pain, Uncontrolled pain Home Medications: Medications to take at Discharge Omeprazole [Prilosec] 20 mg PO DAILY 12/11/16 Simvastatin [Zocor] 20 mg PO QHS 12/11/16 Amlodipine [Norvasc] 10 mg PO DAILY 04/04/17 Cholecalciferol (Vitamin D3) [Vitamin D3] 2,000 units PO DAILY 04/04/17 Loratadine 10 mg PO DAILY 04/04/17 Mirabegron [Myrbetriq] 50 mg PO DAILY 07/23/17 Tamoxifen Citrate [Nolvadex] 20 mg PO DAILY 07/23/17 Paliperidone [Paliperidone ER] 9 mg PO QHS 08/21/17 Ranitidine [Zantac] 150 mg PO BID 08/21/17 Senna [Senokot] 1 tablet PO BID 08/21/17 Solifenacin Succinate [Vesicare] 10 mg PO QHS 08/21/17 Acetaminophen [Tylenol] 325 mg PO Q6H PRN PRN 09/20/18 Aspirin E.C. [Ecotrin] 81 mg PO DAILY 09/20/18 Calcium Carbonate/Vitamin D3 [Calcium 600-Vit D3 200 Tablet] 1 tab PO DAILY 09/20/18 Hydrochlorothiazide 12.5 mg PO DAILY 09/20/18 Levothyroxine Sodium [Synthroid] 75 mcg PO DAILY 09/20/18 Lisinopril [Zestril] 40 mg PO DAILY 09/20/18 Metoprolol Tartrate [Lopressor (beta porfirio)] 25 mg PO BID 09/20/18 Primary Care Physician: Care Physician,No Primary [Primary Care Provider] - Please follow up with your Primary Care Physician in: Follow-up with PCP within 3-5 days to review admission. Patient Instructions: ED Chest Pain NonCardiac, ED Chest Pain Atypical Unkn Cause Disposition: Home Minutes spent on discharge:: 20 Patient Condition:: Fair Medical Necessity - Tobacco Use Smoking Status: Current every day smoker Tobacco Use: Cigarettes, Cigars Meaningful Use Info Meaningful Use Diagnoses (Choose all that apply): None applicable Code Visit OBSV E&M: 03595 Observation care discharge
== END 2018-09-21 11:34 | disposition home or self-care (01) ==
LOC: ED 15:24 → PCU 15:55
PROVIDERS: Admitting Provider Student in an Organized Health Care Education/Training Program; Emergency Provider Emergency Medicine; Referring Provider Student in an Organized Health Care Education/Training Program; Visit Provider Family Medicine
DX: R07.89 Other chest pain (principal); I10 Essential (primary) hypertension; E78.5 Hyperlipidemia, unspecified; K21.9 Gastro-esophageal reflux disease without esophagitis; E03.9 Hypothyroidism, unspecified; F17.210 Nicotine dependence, cigarettes, uncomplicated; E66.9 Obesity, unspecified; Z68.33 Body mass index [BMI] 33.0-33.9, adult; Z71.3 Dietary counseling and surveillance; Z86.711 Personal history of pulmonary embolism; Z79.899 Other long term (current) drug therapy; Z85.3 Personal history of malignant neoplasm of breast; Z79.82 Long term (current) use of aspirin; F20.9 Schizophrenia, unspecified
CPT/HCPCS: 36415; 71045; 78452; 80048; 84484; 85025; 85610; 85730; 93005; 93017; 96372; 99218; 99285; A9500; J7030; A4216; G0378; J2785

== ENCOUNTER 2019-02-07 09:13 | Emergency (ER) | payer MEDICAID, SELFPAY ==
[2018-09-20 16:15] VITALS: BMI 33.3
[2019-02-07 09:14] VITALS: BP 136/70; PULSE 63; RESP 17; TEMP 35.9; O2SAT 96; BMI 34.1
--- NOTE | 2019-02-07 09:37 | ED.VISSUMM ---
- ER Visit Summary Date of Service: 02/07/19 Chief Complaint: Dizziness History of Present Illness: The patient is a 63 F history of prior NE, hypertension and left breast CA. Patient states she had onset of dizziness yesterday. She describes it as room spinning. She denies any headache or head trauma. Patient states she has had dizziness like this before but cannot remember she was diagnosed with vertigo. She also cannot remember the medication that the had her on at that time. Physical Examination: Vital signs are stable and afebrile. Patient is in no acute distress. FPC member at bedside. HEENT exam unremarkable. Atraumatic. Pupils round reactive light. Extra motions are intact. No facial droop. Normal speech. Neck nontender. No lymphadenopathy. Lungs clear to auscultation bilaterally. Heart regular rhythm no murmur. Rate about 60. Abdomen soft and nontender. Patient is moving all 4 extremities. Neurovascular intact. Back nontender. Neurologically she is awake and alert. No focal motor or sensory deficits. NIH score equals 0. Fingertip to nose within normal limits. Normal hand almond blancher strength bilaterally. Normal dorsi plantar flexion. Right ear canal is impacted with wax. Left TM and canals unremarkable. Positive Hallpike maneuver increasing her dizziness. Test Results: CBC shows no acute abnormality. White count of 5. Hemoglobin 13. BMP normal. Gap of 2. Normal creatinine. Emergency Department Course and Treatment: Patient treated with Valium. On repeat exam at 1047 her symptoms have resolved. She was walking in the hallway back from the bathroom. Neurologic exam remains normal. The nurse irrigated her right ear and removed all the wax. The TM is normal. Patient currently is feeling much better. We discussed treatment options and she will be placed on a short course of Valium for the next 2 days and then as needed. Treatment Plan: Valium for vertigo. Disposition: Discharge Impression: Acute dizziness secondary to benign positional vertigo Right ear cerumen impaction This note was generated with [employer] dictation software. It may contain incorrect words, spelling, and punctuation that were not noted in review of the chart prior to signing ED Disposition - Plan for ED Patient: Disposition: Home or Assisted Living Instructions: ED BPV Vertigo Prescriptions: Diazepam [Valium] 5 mg PO BID #10 tab Referrals: Dg Ge Chi, MD [COURTESY STAFF PHYSICIAN] - 1 Week if not improving Additional Instructions: Valium 1 pill or 5 mg twice a day for the next 2 days. Then as needed for room spinning dizziness. Follow-up with your doctor if not improving.
--- NOTE | 2019-02-07 09:40 | ED.DCSUM_ITS ---
- ER Visit Summary Date of Service: 02/07/19 Chief Complaint: Dizziness History of Present Illness: The patient is a 63 F history of prior IA, hypertension and left breast CA. Patient states she had onset of dizziness yesterday. She describes it as room spinning. She denies any headache or head trauma. Patient states she has had dizziness like this before but cannot remember she was diagnosed with vertigo. She also cannot remember the medication that the had her on at that time. Physical Examination: Vital signs are stable and afebrile. Patient is in no acute distress. custodial member at bedside. HEENT exam unremarkable. Atraumatic. Pupils round reactive light. Extra motions are intact. No facial droop. Normal speech. Neck nontender. No lymphadenopathy. Lungs clear to auscultation bilaterally. Heart regular rhythm no murmur. Rate about 60. Abdomen soft and nontender. Patient is moving all 4 extremities. Neurovascular intact. Back nontender. Neurologically she is awake and alert. No focal motor or sensory deficits. NIH score equals 0. Fingertip to nose within normal limits. Normal charge machine operator strength bilaterally. Normal dorsi plantar flexion. Right ear canal is impacted with wax. Left TM and canals unremarkable. Positive Hallpike maneuver increasing her dizziness. Test Results: CBC shows no acute abnormality. White count of 5. Hemoglobin 13. BMP normal. Gap of 2. Normal creatinine. Emergency Department Course and Treatment: Patient treated with Valium. On repeat exam at 1047 her symptoms have resolved. She was walking in the hallway back from the bathroom. Neurologic exam remains normal. The nurse irrigated her right ear and removed all the wax. The TM is normal. Patient currently is feeling much better. We discussed treatment options and she will be placed on a short course of Valium for the next 2 days and then as needed. Treatment Plan: Valium for vertigo. Disposition: Discharge Impression: Acute dizziness secondary to benign positional vertigo Right ear cerumen impaction This note was generated with [employer] dictation software. It may contain incorrect words, spelling, and punctuation that were not noted in review of the chart prior to signing ED Disposition - Plan for ED Patient: Disposition: Home or Assisted Living Instructions: ED BPV Vertigo Prescriptions: Diazepam [Valium] 5 mg PO BID #10 tab Referrals: Dg Ge Chi, MD [COURTESY STAFF PHYSICIAN] - 1 Week if not improving Additional Instructions: Valium 1 pill or 5 mg twice a day for the next 2 days. Then as needed for room spinning dizziness. Follow-up with your doctor if not improving.
[2019-02-07 09:52] LABS: Absolute Lymphocyte Count 1.39 X10^3/ul (0.83-4.51); Basophil# 0.04 X10^3/uL; Basophil% 0.7 % (0-1); Eosinophil# 0.05 X10^3/uL; Eosinophils% 0.8 % (0-5); Hemoglobin 13.7 g/dl (12.0-15.0); Lymphocyte # 1.39 X10^3/ul (4.0); Lymphocyte % 23.6 % (19-41); Mean Corp Hgb Conc 33.4 g/gl (32-36); Mean Corpuscular Hgb 30.7 pg (27.0-32.0); Mean Corpuscular Volume 91.9 fL (81-99); Mean Platelet Vol. 9.5 fl (6.2-12.0); Monocyte# 0.38 X10^3/uL; Monocyte% 6.5 % (0-10); Neutrophil # 4.02 X10^3/uL (2.7-7.7); Neutrophil % 68.2 % (47-70); Platelet Count 192 K/mm3 (150-450); RBC Distribution Width SD 43.5 fl (35.1-43.9); Red Blood Count 4.46 M/mm3 (4.2-5.4); White Blood Count 5.9 K/mm3 (4.4-11.0)
[2019-02-07 09:53] LABS: POSITIVE COUNT NO; POSITIVE DIFFERENTIAL NO; POSITIVE MORPHOLOGY NO
[2019-02-07] MEDS: Carbamide Peroxide 15 ML Bottle 5 DRP OTIC (09:53)
[2019-02-07] MEDS: diazePAM 10 MG/2 ML Syringe 5 MG IV (09:54)
[2019-02-07 10:02] LABS: BUN 15 mg/dL (7-18); Creatinine, Serum 0.78 mg/dL (0.55-1.02); EST Glomerular Filtration Rate 80 mL/min (>60); Glucose 72 mg/dL (74-106)
[2019-02-07 10:03] LABS: Anion Gap 2 (5-15); BUN/Creat Ratio 19.2 RATIO (10-20); Calcium,Total 8.5 mg/dL (8.5-10.1); Chloride 112 mmol/L (98-107); Est Glom Filt Rate - Afr Amer 96 mL/min (>60); Potassium 3.6 mmol/L (3.5-5.1); Sodium Level 142 mmol/L (136-145)
--- NOTE | 2019-02-07 10:50 | ED.DEP ---
ED Disposition - Plan for ED Patient: Disposition: Home or Assisted Living Instructions: ED BPV Vertigo Prescriptions: Diazepam [Valium] 5 mg PO BID #10 tab Referrals: Dg Ge Chi, MD [COURTESY STAFF PHYSICIAN] - 1 Week if not improving Additional Instructions: Valium 1 pill or 5 mg twice a day for the next 2 days. Then as needed for room spinning dizziness. Follow-up with your doctor if not improving.
[2019-02-07 11:04] VITALS: BP 103/76; BP 131/77; BP 139/79; PULSE 57; PULSE 60; PULSE 66
== END 2019-02-07 11:12 | disposition home or self-care (01) ==
PROVIDERS: Emergency Provider Emergency Medicine
DX: H81.10 Benign paroxysmal vertigo, unspecified ear (principal); H61.21 Impacted cerumen, right ear; I25.2 Old myocardial infarction; I10 Essential (primary) hypertension; Z79.899 Other long term (current) drug therapy; Z72.0 Tobacco use
CPT/HCPCS: 80048; 85025; 96374; 99284; A4216

== ENCOUNTER → 2019-02-15 16:47 | Outpatient (CLI) | payer MEDICAID, SELFPAY ==
[2019-02-07 09:14] VITALS: BMI 34.1
[2019-02-15 17:11] LABS: Absolute Lymphocyte Count 1.84 X10^3/ul (0.83-4.51); Absolute Neutrophil Count 3.8 X10^3/uL (2.0-7.7); Basophil# 0.04 X10^3/uL; Basophil% 0.6 % (0-1); Eosinophil# 0.05 X10^3/uL; Eosinophils% 0.8 % (0-5); Hematocrit 41.7 % (37-47); Hemoglobin 14.1 g/dl (12.0-15.0); Lymphocyte # 1.84 X10^3/ul (4.0); Lymphocyte % 28.8 % (19-41); Mean Corp Hgb Conc 33.8 g/gl (32-36); Mean Corpuscular Hgb 30.9 pg (27.0-32.0); Mean Corpuscular Volume 91.2 fL (81-99); Mean Platelet Vol. 9.6 fl (6.2-12.0); Monocyte# 0.63 X10^3/uL; Monocyte% 9.9 % (0-10); Neutrophil # 3.82 X10^3/uL (2.7-7.7); Neutrophil % 59.7 % (47-70); Platelet Count 210 K/mm3 (150-450); RBC Distribution Width CV 12.9 % (11.6-14.6); Red Blood Count 4.57 M/mm3 (4.2-5.4); White Blood Count 6.4 K/mm3 (4.4-11.0)
[2019-02-15 17:34] LABS: POSITIVE COUNT NO; POSITIVE DIFFERENTIAL NO; POSITIVE MORPHOLOGY NO
[2019-02-15 17:41] LABS: Vitamin D,25 Hydroxy 37.3 ng/mL (29.95-100.01)
[2019-02-15 17:43] LABS: ALB/GLOB Ratio 1.2 RATIO (0.9-2.4); AST(SGOT) 14 U/L (15-37); Alanine Aminotransfer ALT/SGPT 18 U/L (13-56); Albumin, Serum 3.7 g/dL (3.2-5.0); Alkaline Phosphatase 84 U/L (45-117); Anion Gap 6 (5-15); BUN 15 mg/dL (7-18); BUN/Creat Ratio 16.2 RATIO (10-20); Calcium,Total 8.6 mg/dL (8.5-10.1); Chloride 108 mmol/L (98-107); Creatinine, Serum 0.93 mg/dL (0.55-1.02); EST Glomerular Filtration Rate 65 mL/min (>60); Est Glom Filt Rate - Afr Amer 79 mL/min (>60); Glucose 87 mg/dL (74-106); Potassium 3.7 mmol/L (3.5-5.1); Protein, Total 6.7 g/dL (6.4-8.2); Sodium Level 141 mmol/L (136-145); Thyroid Stim Hormone (TSH) 4.01 uIU/mL (0.358-3.74)
[2019-02-18 12:55] LABS: Hep C Antibodies <0.1 s/co ratio (0.0-0.9)
== END ==
PROVIDERS: Visit Provider Family Medicine Geriatric Medicine
DX: E55.9 Vitamin D deficiency, unspecified (principal); I10 Essential (primary) hypertension; Z13.89 Encounter for screening for other disorder
CPT/HCPCS: 36415; 80053; 82306; 84443; 85025; 86803

== ENCOUNTER → 2019-03-17 15:22 | Outpatient (CLI) | payer MEDICAID, SELFPAY ==
[2019-03-17 17:09] LABS: Thyroid Stim Hormone (TSH) 5.27 uIU/mL (0.358-3.74)
== END ==
PROVIDERS: Visit Provider Family Medicine Geriatric Medicine
DX: E03.9 Hypothyroidism, unspecified (principal)
CPT/HCPCS: 36415; 84443

== ENCOUNTER → 2019-05-04 09:06 | Outpatient (CLI) | payer MEDICAID, SELFPAY ==
[2019-05-04 12:22] LABS: Thyroid Stim Hormone (TSH) 2.54 uIU/mL (0.358-3.74)
== END ==
PROVIDERS: Family Provider Family Medicine Geriatric Medicine; PCP Family Medicine Geriatric Medicine; Referring Provider Family Medicine Geriatric Medicine; Visit Provider Family Medicine Geriatric Medicine
DX: E03.9 Hypothyroidism, unspecified (principal)
CPT/HCPCS: 36415; 84443

== ENCOUNTER → 2019-05-20 09:14 | Outpatient (CLI) | payer MEDICAID, SELFPAY ==
--- NOTE | 2019-05-20 10:14 | RAD_ITS ---
STUDY: X-RAY - RIGHT KNEE REASON FOR EXAM: Female, 64 years old. Knee pain. TECHNIQUE: 4 view(s) of the knee, 3 of which are labeled as upright. COMPARISON: None. FINDINGS: Normal visualized distal femur. Normal visualized proximal tibia and fibula. Normal patella. There is no demonstrated destructive osseous lesion or fracture. There is mild degenerative narrowing of the medial femorotibial compartment. Normal lateral femorotibial compartment. Normal patellofemoral articulation. Normal proximal tibiofibular articulation. There is no significant joint effusion. The soft tissue structures are unremarkable. RAD/Knee 4 or More Views IMPRESSION: Degenerative narrowing of the medial femorotibial compartment. Electronically Signed: Alvin Mendoza MD at 17:11 EDT , Service support ,
[2019-05-20 12:22] LABS: Absolute Neutrophil Count 4.3 X10^3/uL (2.0-7.7); Basophil# 0.08 X10^3/uL; Basophil% 1.2 % (0-1); Eosinophil# 0.13 X10^3/uL; Hematocrit 41.3 % (37-47); Hemoglobin 13.5 g/dL (12.0-15.0); Lymphocyte % 20.1 % (19-41); Mean Corp Hgb Conc 32.7 g/dL (32-36); Mean Corpuscular Hgb 30.3 pg (27.0-32.0); Mean Corpuscular Volume 92.8 fL (81-99); Mean Platelet Vol. 9.8 fl (6.2-12.0); Monocyte# 0.63 X10^3/uL; Monocyte% 9.7 % (0-10); NRBC Flagged by Analyzer 0 % (0-5); Neutrophil # 4.32 X10^3/uL (2.7-7.7); Neutrophil % 66.7 % (47-70); POSITIVE MORPHOLOGY YES; Platelet Count 249 K/mm3 (150-450); RBC Distribution Width CV 12.7 % (11.6-14.6); RBC Distribution Width SD 43.4 fl (35.1-43.9); Red Blood Count 4.45 M/mm3 (4.2-5.4); White Blood Count 6.5 K/mm3 (4.4-11.0)
[2019-05-20 12:31] LABS: Vitamin D,25 Hydroxy 26.4 ng/mL (29.95-100.01)
[2019-05-20 12:36] LABS: ALB/GLOB Ratio 1.1 RATIO (0.9-2.4); AST(SGOT) 13 U/L (15-37); Alanine Aminotransfer ALT/SGPT 17 U/L (13-56); Albumin, Serum 3.5 g/dL (3.2-5.0); Alkaline Phosphatase 84 U/L (45-117); Anion Gap 6 (5-15); BUN 11 mg/dL (7-18); BUN/Creat Ratio 14.1 RATIO (10-20); Calcium,Total 9.3 mg/dL (8.5-10.1); Chloride 105 mmol/L (98-107); Creatinine, Serum 0.78 mg/dL (0.55-1.02); EST Glomerular Filtration Rate 80 mL/min (>60); Est Glom Filt Rate - Afr Amer 96 mL/min (>60); Globulin 3.1 g/dL (2.2-4.2); Glucose 79 mg/dL (74-106); Potassium 3.4 mmol/L (3.5-5.1); Protein, Total 6.6 g/dL (6.4-8.2); Sodium Level 137 mmol/L (136-145)
[2019-05-20 12:37] LABS: Differential Indicated SCAN CRITERIA MET
[2019-05-20 13:36] LABS: Platelet Estimate ADEQUATE (ADEQ); Red Cell Morphology NORM C+C NORMAL (NORM C&C)
== END ==
LOC: POLAB3 09:15 → RAD 10:11
PROVIDERS: Family Provider Family Medicine Geriatric Medicine; PCP Family Medicine Geriatric Medicine; Visit Provider Family Medicine Geriatric Medicine
DX: M17.11 Unilateral primary osteoarthritis, right knee (principal); E55.9 Vitamin D deficiency, unspecified; I10 Essential (primary) hypertension
CPT/HCPCS: 36415; 73564; 80053; 82306; 84443; 85025

== ENCOUNTER → 2019-05-30 08:48 | Outpatient (CLI) | payer MEDICAID, SELFPAY ==
[2019-05-30 10:43] LABS: Anion Gap 8 (5-15); BUN 11 mg/dL (7-18); BUN/Creat Ratio 13.9 RATIO (10-20); Calcium,Total 8.4 mg/dL (8.5-10.1); Chloride 109 mmol/L (98-107); Creatinine, Serum 0.79 mg/dL (0.55-1.02); EST Glomerular Filtration Rate 78 mL/min (>60); Est Glom Filt Rate - Afr Amer 95 mL/min (>60); Glucose 108 mg/dL (74-106); Potassium 3.7 mmol/L (3.5-5.1); Sodium Level 141 mmol/L (136-145)
== END ==
PROVIDERS: Family Provider Family Medicine Geriatric Medicine; PCP Family Medicine Geriatric Medicine; Referring Provider Family Medicine Geriatric Medicine; Visit Provider Family Medicine Geriatric Medicine
DX: E87.6 Hypokalemia (principal)
CPT/HCPCS: 36415; 80048

== ENCOUNTER → 2019-07-04 08:19 | Outpatient (CLI) | payer MEDICAID, SELFPAY ==
[2019-07-04 09:30] LABS: Thyroid Stim Hormone (TSH) 1.59 uIU/mL (0.358-3.74)
== END ==
LOC: LAB.FUTURE 08:27 → LAB 08:33
PROVIDERS: Family Provider Family Medicine Geriatric Medicine; PCP Family Medicine Geriatric Medicine; Referring Provider Family Medicine Geriatric Medicine; Visit Provider Family Medicine Geriatric Medicine
DX: E03.9 Hypothyroidism, unspecified (principal)
CPT/HCPCS: 36415; 84443

== ENCOUNTER → 2019-07-18 11:27 | Outpatient (CLI) | payer MEDICAID, SELFPAY | PROVIDERS: Family Provider Family Medicine Geriatric Medicine; PCP Family Medicine Geriatric Medicine; Referring Provider Family Medicine Geriatric Medicine; Visit Provider Family Medicine Geriatric Medicine | DX: R68.83 Chills (without fever) (principal) | CPT/HCPCS: 87633 ==

== ENCOUNTER → 2019-07-20 13:12 | Outpatient (CLI) | payer MEDICAID, SELFPAY ==
[2019-07-20 15:52] LABS: Absolute Lymphocyte Count 0.79 X10^3/uL (0.83-4.51); Absolute Neutrophil Count 8.6 X10^3/uL (2.0-7.7); Basophil# 0.03 X10^3/uL; Basophil% 0.3 % (0-1); Eosinophil# 0.01 X10^3/uL; Eosinophils% 0.1 % (0-5); Hematocrit 43.6 % (37-47); Lymphocyte # 0.79 X10^3/ul (4.0); Lymphocyte % 7.9 % (19-41); Mean Corp Hgb Conc 32.1 g/dL (32-36); Mean Corpuscular Hgb 30.2 pg (27.0-32.0); Mean Platelet Vol. 9.9 fl (6.2-12.0); Monocyte# 0.29 X10^3/uL; Monocyte% 2.9 % (0-10); NRBC Flagged by Analyzer 0 % (0-5); Neutrophil # 8.61 X10^3/uL (2.7-7.7); Neutrophil % 86.3 % (47-70); Platelet Count 259 K/mm3 (150-450); RBC Distribution Width CV 12.8 % (11.6-14.6); RBC Distribution Width SD 43.8 fl (35.1-43.9); Red Blood Count 4.64 M/mm3 (4.2-5.4)
[2019-07-20 16:47] LABS: ALB/GLOB Ratio 1.2 RATIO (0.9-2.4); AST(SGOT) 14 U/L (15-37); Alanine Aminotransfer ALT/SGPT 20 U/L (13-56); Albumin, Serum 3.8 g/dL (3.2-5.0); Alkaline Phosphatase 81 U/L (45-117); Anion Gap 9 (5-15); BUN 15 mg/dL (7-18); BUN/Creat Ratio 17.2 RATIO (10-20); Chloride 108 mmol/L (98-107); Creatinine, Serum 0.87 mg/dL (0.55-1.02); EST Glomerular Filtration Rate 70 mL/min (>60); Est Glom Filt Rate - Afr Amer 84 mL/min (>60); Globulin 3.1 g/dL (2.2-4.2); Glucose 107 mg/dL (74-106); Potassium 3.7 mmol/L (3.5-5.1); Protein, Total 6.9 g/dL (6.4-8.2); Sodium Level 141 mmol/L (136-145); Thyroid Stim Hormone (TSH) 2.36 uIU/mL (0.358-3.74)
[2019-07-21 10:03] LABS: Vitamin B12 394 pg/mL (211-911)
[2019-07-22 02:41] LABS: Rapid Plasmin Reagin (RPR) NONREACTIVE (NONREACTIVE)
== END ==
PROVIDERS: Family Provider Family Medicine Geriatric Medicine; PCP Family Medicine Geriatric Medicine; Visit Provider Family Medicine Geriatric Medicine
DX: G30.9 Alzheimer's disease, unspecified (principal); R53.83 Other fatigue
CPT/HCPCS: 36415; 80053; 82607; 82746; 84443; 85025; 86592

== ENCOUNTER → 2019-08-11 08:42 | Outpatient (CLI) | payer MEDICAID, SELFPAY ==
--- NOTE | 2019-08-11 08:45 | CT_ITS ---
STUDY: CT BRAIN WITHOUT CONTRAST REASON FOR EXAM: Female, 64 years old. History of the breast cancer, coronary artery disease, COPD. RADIATION DOSAGE (If Supplied By Facility): CTDIvol = ( 44.99 ) mGy, DLP = ( 745.49 ) mGycm TECHNIQUE: Transaxial CT imaging of the brain was performed without administration of intravenous contrast material. Individualized dose optimization techniques were used for this CT. COMPARISON: 07/23/2017. FINDINGS: Normal soft tissue structures. Normal calvarium. There is mild cerebral atrophy with widening of the extra-axial spaces and ventricular dilatation. There are areas of decreased attenuation within the white matter tracts of the supratentorial brain, consistent with microvascular disease changes. Normal basal ganglia and thalami. Normal brainstem. There is mild cerebellar atrophy. There is no intracranial hemorrhage. There are no findings of an acute ischemic infarction. Normal visualized paranasal sinuses. CT/Brain/Head without Contrast IMPRESSION: Generalized brain atrophy along with microangiopathic white matter disease. No acute intracranial hemorrhage or space-occupying lesion, stable study in the interval. Electronically Signed: Lida Tristan MD at 1:05 EDT , Service support ,
== END ==
PROVIDERS: Family Provider Family Medicine Geriatric Medicine; PCP Family Medicine Geriatric Medicine; Referring Provider Family Medicine Geriatric Medicine; Visit Provider Family Medicine Geriatric Medicine
DX: G30.9 Alzheimer's disease, unspecified (principal)
CPT/HCPCS: 70450

== ENCOUNTER → 2019-08-19 09:55 | Outpatient (CLI) | payer MEDICAID, SELFPAY ==
[2019-08-19 12:21] LABS: Absolute Neutrophil Count 4.9 X10^3/uL (2.0-7.7); Basophil# 0.06 X10^3/uL; Basophil% 0.9 % (0-1); Eosinophil# 0.03 X10^3/uL; Eosinophils% 0.4 % (0-5); Hematocrit 41.8 % (37-47); Hemoglobin 13.6 g/dL (12.0-15.0); Lymphocyte % 18.5 % (19-41); Mean Corp Hgb Conc 32.5 g/dL (32-36); Mean Corpuscular Hgb 30.5 pg (27.0-32.0); Mean Corpuscular Volume 93.7 fL (81-99); Mean Platelet Vol. 9.7 fl (6.2-12.0); Monocyte# 0.68 X10^3/uL; Monocyte% 9.7 % (0-10); NRBC Flagged by Analyzer 0 % (0-5); Neutrophil # 4.91 X10^3/uL (2.7-7.7); Neutrophil % 70.1 % (47-70); Platelet Count 240 K/mm3 (150-450); RBC Distribution Width SD 44.4 fl (35.1-43.9); Red Blood Count 4.46 M/mm3 (4.2-5.4)
[2019-08-19 12:29] LABS: Vitamin D,25 Hydroxy 26.5 ng/mL (29.95-100.01)
[2019-08-19 12:38] LABS: ALB/GLOB Ratio 1.1 RATIO (0.9-2.4); AST(SGOT) 14 U/L (15-37); Alanine Aminotransfer ALT/SGPT 21 U/L (13-56); Albumin, Serum 3.4 g/dL (3.2-5.0); Alkaline Phosphatase 83 U/L (45-117); Anion Gap 4 (5-15); BUN 10 mg/dL (7-18); BUN/Creat Ratio 12.9 RATIO (10-20); Calcium,Total 9.1 mg/dL (8.5-10.1); Chloride 106 mmol/L (98-107); Creatinine, Serum 0.77 mg/dL (0.55-1.02); EST Glomerular Filtration Rate 80 mL/min (>60); Est Glom Filt Rate - Afr Amer 97 mL/min (>60); Glucose 87 mg/dL (74-106); Potassium 3.8 mmol/L (3.5-5.1); Protein, Total 6.4 g/dL (6.4-8.2); Sodium Level 138 mmol/L (136-145); Thyroid Stim Hormone (TSH) 4.35 uIU/mL (0.358-3.74)
== END ==
PROVIDERS: Family Provider Family Medicine Geriatric Medicine; PCP Family Medicine Geriatric Medicine; Visit Provider Family Medicine Geriatric Medicine
DX: E55.9 Vitamin D deficiency, unspecified (principal); I10 Essential (primary) hypertension
CPT/HCPCS: 36415; 80053; 82306; 84443; 85025

== ENCOUNTER → 2019-10-21 12:10 | Outpatient (CLI) | payer MEDICAID, SELFPAY ==
[2019-10-21 13:24] LABS: Thyroid Stim Hormone (TSH) 2.07 uIU/mL (0.358-3.74)
== END ==
PROVIDERS: Family Provider Family Medicine Geriatric Medicine; PCP Family Medicine Geriatric Medicine; Visit Provider Family Medicine Geriatric Medicine
DX: E03.9 Hypothyroidism, unspecified (principal)
CPT/HCPCS: 36415; 84443

== ENCOUNTER → 2019-11-24 09:12 | Outpatient (CLI) | payer MEDICAID, SELFPAY ==
[2019-11-24 12:16] LABS: Absolute Lymphocyte Count 1.59 X10^3/uL (0.83-4.51); Absolute Neutrophil Count 4.5 X10^3/uL (2.0-7.7); Basophil# 0.06 X10^3/uL; Basophil% 0.9 % (0-1); Eosinophil# 0.02 X10^3/uL; Eosinophils% 0.3 % (0-5); Hematocrit 42.6 % (37-47); Hemoglobin 13.8 g/dL (12.0-15.0); Lymphocyte # 1.59 X10^3/ul (4.0); Lymphocyte % 23.2 % (19-41); Mean Corp Hgb Conc 32.4 g/dL (32-36); Mean Corpuscular Hgb 30.1 pg (27.0-32.0); Monocyte# 0.63 X10^3/uL; Monocyte% 9.2 % (0-10); NRBC Flagged by Analyzer 0 % (0-5); Neutrophil # 4.51 X10^3/uL (2.7-7.7); Platelet Count 257 K/mm3 (150-450); RBC Distribution Width CV 13.1 % (11.6-14.6); RBC Distribution Width SD 44.3 fl (35.1-43.9); Red Blood Count 4.58 M/mm3 (4.2-5.4); White Blood Count 6.8 K/mm3 (4.4-11.0)
[2019-11-24 12:43] LABS: ALB/GLOB Ratio 1.1 RATIO (0.9-2.4); AST(SGOT) 14 U/L (15-37); Alanine Aminotransfer ALT/SGPT 23 U/L (13-56); Albumin, Serum 3.4 g/dL (3.2-5.0); Alkaline Phosphatase 79 U/L (45-117); Anion Gap 5 (5-15); BUN 13 mg/dL (7-18); BUN/Creat Ratio 13.9 RATIO (10-20); Calcium,Total 9.2 mg/dL (8.5-10.1); Chloride 109 mmol/L (98-107); Creatinine, Serum 0.94 mg/dL (0.55-1.02); EST Glomerular Filtration Rate 64 mL/min (>60); Est Glom Filt Rate - Afr Amer 78 mL/min (>60); Globulin 3.1 g/dL (2.2-4.2); Glucose 85 mg/dL (74-106); Potassium 3.9 mmol/L (3.5-5.1); Protein, Total 6.5 g/dL (6.4-8.2); Sodium Level 139 mmol/L (136-145); Thyroid Stim Hormone (TSH) 2.62 uIU/mL (0.358-3.74)
[2019-11-24 12:48] LABS: Vitamin D,25 Hydroxy 36.1 ng/mL (29.95-100.01)
== END ==
PROVIDERS: PCP Family Medicine Geriatric Medicine; Visit Provider Family Medicine Geriatric Medicine
DX: I10 Essential (primary) hypertension (principal); E55.9 Vitamin D deficiency, unspecified
CPT/HCPCS: 36415; 80053; 82306; 84443; 85025

== ENCOUNTER → 2020-04-24 16:13 | Outpatient (CLI) | payer MEDICAID, SELFPAY ==
[2020-04-24 16:44] LABS: Absolute Lymphocyte Count 1.85 X10^3/uL (0.83-4.51); Basophil# 0.05 X10^3/uL; Basophil% 0.8 % (0-1); Eosinophil# 0.03 X10^3/uL; Eosinophils% 0.5 % (0-5); Hematocrit 42.4 % (37-47); Hemoglobin 13.8 g/dL (12.0-15.0); Lymphocyte # 1.85 X10^3/ul (4.0); Lymphocyte % 28.2 % (19-41); Mean Corp Hgb Conc 32.5 g/dL (32-36); Mean Corpuscular Hgb 30.5 pg (27.0-32.0); Mean Corpuscular Volume 93.8 fL (81-99); Mean Platelet Vol. 9.9 fl (6.2-12.0); Monocyte# 0.57 X10^3/uL; Monocyte% 8.7 % (0-10); NRBC Flagged by Analyzer 0 % (0-5); Neutrophil # 4.04 X10^3/uL (2.7-7.7); Neutrophil % 61.5 % (47-70); Platelet Count 277 K/mm3 (150-450); RBC Distribution Width CV 13.2 % (11.6-14.6); RBC Distribution Width SD 45.1 fl (35.1-43.9); Red Blood Count 4.52 M/mm3 (4.2-5.4); White Blood Count 6.6 K/mm3 (4.4-11.0)
[2020-04-24 17:07] LABS: Vitamin D,25 Hydroxy 28.7 ng/mL
[2020-04-24 17:13] LABS: ALB/GLOB Ratio 1.1 RATIO (0.9-2.4); AST(SGOT) 14 U/L (15-37); Alanine Aminotransfer ALT/SGPT 20 U/L (13-56); Albumin, Serum 3.4 g/dL (3.2-5.0); Alkaline Phosphatase 76 U/L (45-117); Anion Gap 8 (5-15); BUN 10 mg/dL (7-18); BUN/Creat Ratio 10.7 RATIO (10-20); Calcium,Total 8.8 mg/dL (8.5-10.1); Chloride 107 mmol/L (98-107); Creatinine, Serum 0.93 mg/dL (0.55-1.02); EST Glomerular Filtration Rate 65 mL/min (>60); Est Glom Filt Rate - Afr Amer 78 mL/min (>60); Globulin 3.1 g/dL (2.2-4.2); Glucose 118 mg/dL (74-106); Potassium 3.4 mmol/L (3.5-5.1); Protein, Total 6.5 g/dL (6.4-8.2); Sodium Level 140 mmol/L (136-145); Thyroid Stim Hormone (TSH) 3.27 uIU/mL (0.358-3.74)
== END ==
PROVIDERS: PCP Family Medicine Geriatric Medicine; Visit Provider Family Medicine Geriatric Medicine
DX: E55.9 Vitamin D deficiency, unspecified (principal); I10 Essential (primary) hypertension
CPT/HCPCS: 36415; 80053; 82306; 84443; 85025

== ENCOUNTER → 2020-05-01 14:05 | Outpatient (CLI) | payer MEDICAID, SELFPAY ==
--- NOTE | 2020-05-01 14:06 | CT_ITS ---
STUDY: LOW DOSE CT LUNG CANCER SCREENING REASON FOR EXAM: Female, 65 years old. TOBACCO USE- 49 YRS SMOKER X 1/2 PPD, CB=026, CAD, COPD, HTN, LT BREAST CA-SURG ONLY RADIATION DOSAGE (If Supplied By Facility): CTDIvol = ( 3.40 ) mGy, DLP = ( 102.54 ) mGycm TECHNIQUE: No contrast was administered. Low dose technique was utilized (average mAS-38 and kVp 120). 1.25 mm axial source images with a slice interval of 1.25-mm were reconstructed in lung windows. 2.5 mm axial source images with a slice interval of 2.5-mm were reconstructed in lung windows. 5.0 mm axial source images with a slice interval of 5.0-mm were reconstructed in soft tissue windows. Nodule measured using lung windows on PACS and/or independent workstation with automated measurement of minimum and maximum diameter. Nodule measurement reported as average diameter rounded to the nearest whole number. Growth is defined as an increase ins size of greater than 1.5 mm. COMPARISON: None. NODULES: Lung windows show no suspicious noncalcified mass or nodule. There is no organized infiltrate, or suspicious groundglass opacifications. Limited soft tissue windows do not show suspicious adenopathy, pleural or pericardial effusions. There are degenerative bony changes. CT/Low Dose CT Lung Screening IMPRESSION: Lung-RADS category 2 - Continue annual screening with LDCT in 12 months. IMPORTANT NOTES FOR USE: ACR Lung-RADS Version 1.0 Assessment Categories Release Date: February 13, 2014 Category: Coded 0-4 bases on nodule(s) with highest degree of suspicion. Negative screen is defined as categories 1 and 2; a positive screen is defined as categories 3 and 4. Category 3 and 4A nodules that are unchanged on interval CT should be coded as category 2, and individuals returned to screening in 12 months. Category 4X: Category 3 or 4 nodules with additional imaging findings that increase the suspicion of lung cancer, such as spiculation, GGN that doubles in size in 1 year, enlarged lymph notes, etc. Category Modifiers: S (significant finding unrelated to lung cancer) and C (prior history of treated lung cancer) may be added to the 0-4 Lung-RADS Electronically Signed: Alvin Calvin MD at 15:10 EDT , Service support ,
== END ==
PROVIDERS: PCP Family Medicine Geriatric Medicine; Referring Provider Family Medicine Geriatric Medicine; Visit Provider Family Medicine Geriatric Medicine
DX: T65.222S Toxic effect of tobacco cigarettes, intentional self-harm, sequela (principal); F17.210 Nicotine dependence, cigarettes, uncomplicated
CPT/HCPCS: G0297

== ENCOUNTER → 2020-05-07 11:17 | Outpatient (CLI) | payer MEDICAID, SELFPAY ==
[2020-05-07 13:06] LABS: Anion Gap 6 (5-15); BUN 10 mg/dL (7-18); Calcium,Total 8.9 mg/dL (8.5-10.1); Chloride 106 mmol/L (98-107); Creatinine, Serum 0.77 mg/dL (0.55-1.02); EST Glomerular Filtration Rate 80 mL/min (>60); Est Glom Filt Rate - Afr Amer 97 mL/min (>60); Glucose 97 mg/dL (74-106); Potassium 3.7 mmol/L (3.5-5.1); Sodium Level 138 mmol/L (136-145)
== END ==
PROVIDERS: PCP Family Medicine Geriatric Medicine; Visit Provider Family Medicine Geriatric Medicine
DX: E87.6 Hypokalemia (principal)
CPT/HCPCS: 36415; 80048

== ENCOUNTER 2020-06-11 08:01 | Day surgery (SDC) | payer MEDICAID, SELFPAY ==
[2020-05-15 10:49] VITALS: BMI 34.1
--- NOTE | 2020-05-15 10:49 | HP_ITS ---
Intake Vital Signs 05/15/20 BMI 34.1 05/15/20 Height 5 ft 2 in 05/15/20 Weight: 179 lb 05/15/20 BP 118/75 05/15/20 Blood Pressure Location Rt brachial 05/15/20 Position Sitting 05/15/20 Respiration 16 05/15/20 Pulse 71 05/15/20 Pulse Source Monitor 05/15/20 Temp 98.0 F 05/15/20 Temp Source Temporal 05/15/20 Pulse Oximetry (%) 97 05/15/20 Oxygen Delivery Method room air Intake Visit Reasons: Cscope Consult Chief Complaint: Chest Pain Photographer Model Required: No Accompanied by: Caregiver Is patient in pain?: No Allergies milk Adverse Reaction (Verified 05/15/20 10:23) Diarrhea Medications Cholecalciferol (Vitamin D3) [Vitamin D3] 2,000 units PO DAILY 04/04/17 [History Confirmed 05/15/20] Tamoxifen Citrate [Nolvadex] 20 mg PO DAILY 07/23/17 [History Confirmed 05/15/20] Paliperidone [Paliperidone ER] 9 mg PO QHS 08/21/17 [History Confirmed 05/15/20] Solifenacin Succinate [Vesicare] 10 mg PO QHS 08/21/17 [History Confirmed 05/15/20] Calcium Carbonate/Vitamin D3 [Calcium 600-Vit D3 200 Tablet] 1 tab PO DAILY 09/20/18 [History Confirmed 05/15/20] Metoprolol Tartrate [Lopressor (beta porfirio)] 25 mg PO BID 09/20/18 [History Confirmed 05/15/20] ipratropium bromide 42 mcg (0.06 %) nasal spray 2 spray INTRANASAL TID 05/15/20 [History Confirmed 05/15/20] levothyroxine 125 mcg capsule 125 mcg PO DAILY 05/15/20 [History] lisinopril 20 mg-hydrochlorothiazide 12.5 mg tablet 1 tab PO DAILY 05/15/20 [History Confirmed 05/15/20] mirabegron 50 mg tablet,extended release 24 hr 50 mg PO DAILY 05/15/20 [History Confirmed 05/15/20] multivitamin 1 tab PO DAILY 05/15/20 [History Confirmed 05/15/20] omeprazole 40 mg capsule,delayed release 40 mg PO DAILY 05/15/20 [History Confirmed 05/15/20] [facility] Medical History Arthritis (Acute) Back problem (Acute) Anxiety (Acute) Depression (Acute) Allergic rhinitis (Acute) Schizophrenia (Acute) GERD (gastroesophageal reflux disease) (Acute) OAB (overactive bladder) (Acute) HX: breast cancer (Acute) Hypothyroidism (Acute) Hyperlipemia (Acute) Nicotine abuse (Chronic) HTN (hypertension) (Chronic) Breast cancer (Chronic) Lives in [facility]ci (Acute) CAD (coronary artery disease) (Acute) Acute bronchitis (Acute) Chest pain (Acute) Surgical History History of (Acute) Hx of bladder repair surgery (Acute) History of mastectomy (Acute) Family History Sister Heart disease CVA (cerebral vascular accident) Social History (Updated 05/21/20 @ 13:[address] Jaron Mackey MD) Smoking Status: Current some day smoker HPI HPI Surgical H&P: Yes HPI: CUATE ESCUDERO, is a 65 F who presents to the office today for Evaluation for endoscopy. Patient has never had a screening colonoscopy. Patient is not having any difficulty moving her bowels she has not noticed any blood in her stool. She is not complaining of any abdominal pain. ROS General General: Yes breast cancer; no weight change, appetite, fatigue, colon cancer or weakness HEENT HEENT: No difficulty swallowing, eye injury, eye surgery, swollen glands or hoarseness Endo Endocrine: No thyroid disease, diabetes mellitus, thyroid cancer, Hair loss, heat intolerance or cold intolerance Skin Skin: No rash or changing moles Musc Musculoskeletal: Yes back problems and arthritis; no rheumatoid arthritis, gout or joint pain Psych Psychiatric: Yes depression and anxiety; no hearing voices Resp Respiratory: No shortness of breath, No sleep apnea, No cough, No COPD, No asthma, No emphysema, No wheezing Gastro Gastrointestinal: No abdominal pain, No nausea or vomiting, No diarrhea, No constipation, No blood in stool, No acid reflux, No hemorrhoids, No ulcers, No gallbladder problem, No black,tarry stools Ron Hematologic: No blood thinners, No blood disorders, No bleeding, No anemia, No blood clots Neuro Neurologic: No weakness Exam Const General: no acute distress, well developed, well hydrated Orientation: oriented to person, oriented to place, oriented to time [facility] Head: normocephalic, atraumatic Ears: external ears normal Mouth: moist mucous membranes Eyes Sclera: sclerae normal Pupils: normal by confrontation Neck Neck: no lymphadenopathy noted Neck mass: No Thyroid: thyroid normal, symmetrical Chest Chest palpation & inspection: normal inspection of the chest Resp Effort & Inspection: normal respiratory effort Auscultation: clear to auscultation bilaterally Percussion: percussion normal Cardio Rate: regular rate Rhythm: regular rhythm GI Palpation: soft, no hepatosplenomegaly, no masses, nontender Rectal Exam: other Other: Rectal exam deferred. Extrem General: normal to inspection, no clubbing, cyanosis or edema Assessment & Plan Problems 1. Screening for colon cancer Z12.11 Plan I have discussed the above with the patient. I have offered the patient colonoscopy for evaluation. I have explained the risks/benefits of the procedure and described the procedure. I have discussed the risks with the patient, including but not limited to: infection, bleeding, perforation of the GI tract requiring emergency surgery, inability to complete the procedure, injury to any internal organs, complications of anesthesia, etc. - the patient understands and agrees to proceed. I have answered all the patient's questions to the patient's satisfaction and the patient has no further questions. The patient has been given instructions for the colon cleansing preparation. Coding Level of Care Code Off vis,new,level 3 Diagnoses Screening for colon cancer Z12.11 COVID (Procedure Consent) Procedure Criteria Procedure Criteria: Yes Elective The surgeon/proceduralist and patient have discussed in detail the risk of exposure to and/or potential harm posed by the COVID-19 virus with having a surgery/procedure at this time versus the risk of? delaying the surgery/procedure. It is not possible to know either the risk of delaying the surgery or procedure or chance of getting an infection with perfect accuracy, but a joint decision was made between the patient and the surgeon/proceduralist ?to proceed at this time with the scheduled surgery/procedure as indicated on the consent form. 05/21/20 [id number] <Electronically signed by Jaron steen MD> Date _ Jaron Mackey MD I have re-examined the patient. There are no clinical changes since date of exam.
[2020-06-11 08:26] VITALS: BP 140/83; PULSE 64; RESP 16; TEMP 37.2; O2SAT 95; BMI 31.1
[2020-06-11] MEDS: Lactated Ringers 1,000 ML 100 ML IV (08:39)
[2020-06-11] MEDS: Glucagon 1 MG/ML Syringe (09:09)
[2020-06-11 09:20] VITALS: BP 140/83; BP 97/48; PULSE 63; RESP 16; TEMP 36.6; O2SAT 95
--- NOTE | 2020-06-11 09:23 | OP.COLON_ITS ---
Patient Name: Mariam Cuevas Procedure Date: 06/11/2020 8:46 AM Date of : 1955 Age: 65 Procedure: Colonoscopy Indications: Screening for colorectal malignant neoplasm Providers: Jaron Mackey MD Referring MD: Dg Ge MD Medicines: See the Anesthesia note for documentation of the administered medications Patient Profile: This is a 65 year old female. Refer to note in patient chart for documentation of history and physical. Last Colonoscopy: none. The patient's first colonoscopy is today. Complications: No immediate complications. Procedure: Pre-Anesthesia Assessment: - Prior to the procedure, a History and Physical was performed, and patient medications and allergies were reviewed. The patient's tolerance of previous anesthesia was also reviewed. The risks and benefits of the procedure and the sedation options and risks were discussed with the patient. All questions were answered, and informed consent was obtained. Prior Anticoagulants: The patient has taken no previous anticoagulant or antiplatelet agents. ASA Grade Assessment: II - A patient with mild systemic disease. After reviewing the risks and benefits, the patient was deemed in satisfactory condition to undergo the procedure. After I obtained informed consent, the scope was passed under direct vision. Throughout the procedure, the patient's blood pressure, pulse, and oxygen saturations were monitored continuously. The adult colonoscope was introduced through the anus and advanced to the cecum, identified by appendiceal orifice and ileocecal valve. The colonoscopy was performed without difficulty. The patient tolerated the procedure well. The quality of the bowel preparation was good. Scope In: 8:58:41 AM Scope Withdrawal Time 0 hours 11 minutes 25 seconds Scope Out: 9:15:48 AM Total Procedure Duration Time 0 hours 17 minutes 7 seconds Findings: Many small-mouthed diverticula were found in the sigmoid colon. Non-bleeding internal hemorrhoids were found. The hemorrhoids were mild and small. The exam was otherwise without abnormality. Impression: - Diverticulosis in the sigmoid colon. - Non-bleeding internal hemorrhoids. - The examination was otherwise normal. - No specimens collected. Recommendation: - Discharge patient to home. - Resume previous diet. - Continue present medications. - Repeat colonoscopy in 10 years for screening purposes. - Return to primary care physician (date not yet determined). Procedure Code(s): --- Professional --- 46876, Colonoscopy, flexible; diagnostic, including collection of specimen(s) by brushing or washing, when performed (separate procedure) Diagnosis Code(s): --- Professional --- Z12.11, Encounter for screening for malignant neoplasm of colon K64.8, Other hemorrhoids K57.30, Diverticulosis of large intestine without perforation or abscess without bleeding CPT copyright 2017 [place] [employer]. All rights reserved. The codes documented in this report are preliminary and upon cook helper review may be revised to meet current compliance requirements. MD Jaron Combs MD 06/11/2020 9:22:44 AM This report has been signed electronically. Number of Addenda: 0 Note Initiated On: 06/11/2020 8:46 AM
--- NOTE | 2020-06-11 09:23 | OP.CCLET_ITS ---
06/11/2020 Dg Ge MD [address] [place] [address] Re : Colonoscopy procedure for Mariam Cuevas Dear Dr. Ge This procedure was performed on Thursday, June 11, 2020. My impressions and recommendations are as follows: Impressions : - Diverticulosis in the sigmoid colon. - Non-bleeding internal hemorrhoids. - The examination was otherwise normal. - No specimens collected. Recommendations : - Discharge patient to home. - Resume previous diet. - Continue present medications. - Repeat colonoscopy in 10 years for screening purposes. - Return to primary care physician (date not yet determined). My findings are described in the full procedure note, which is enclosed. If I can be of further assistance, please feel free to contact me at Doctor phone number(s): , Fax: [phone], Work: . Sincerely, MD Jaron Combs MD 06/11/2020 9:22:44 AM This report has been signed electronically.
[2020-06-11 09:25] VITALS: BP 112/53; BP 140/83; PULSE 64; RESP 16; O2SAT 92
[2020-06-11 09:30] VITALS: BP 124/58; BP 140/83; PULSE 65; RESP 16; O2SAT 93
[2020-06-11 09:35] VITALS: BP 121/65; BP 140/83; PULSE 65; RESP 16; TEMP 36.5; O2SAT 93
[2020-06-11 09:45] VITALS: BP 140/83
== END 2020-06-11 10:05 | disposition home or self-care (01) ==
LOC: EN 08:03 → AC 08:04
PROVIDERS: Anesthesiology; PCP Family Medicine Geriatric Medicine; Referring Provider Family Medicine Geriatric Medicine; Visit Provider Surgery
PROC: 0DJD8ZZ Inspection of Lower Intestinal Tract, Via Natural or Artificial Opening Endoscopic (ICD-10-PCS; CPT 45378; principal; 2020-06-11 08:55)
DX: Z12.11 Encounter for screening for malignant neoplasm of colon (principal); Z11.59 Encounter for screening for other viral diseases; K57.30 Diverticulosis of large intestine without perforation or abscess without bleeding; I25.10 Atherosclerotic heart disease of native coronary artery without angina pectoris; I10 Essential (primary) hypertension; K21.9 Gastro-esophageal reflux disease without esophagitis; M19.90 Unspecified osteoarthritis, unspecified site; E78.5 Hyperlipidemia, unspecified; F17.200 Nicotine dependence, unspecified, uncomplicated; Z79.899 Other long term (current) drug therapy; E03.9 Hypothyroidism, unspecified; I25.2 Old myocardial infarction
CPT/HCPCS: 45378; 87635; 94799; J7120; J1610; J2405; U0003

== ENCOUNTER 2020-07-01 18:58 | Inpatient (IN) | payer MEDICAID, SELFPAY ==
[2020-07-01] VITALS (10 sets, daily range): BP systolic 143–162; BP diastolic 73–80; PULSE 73–98; RESP 17–32; TEMP 36.9–37.4; O2SAT 90–98; BMI 32.2; BMI 31.8; BMI 31.9
--- NOTE | 2020-07-01 19:33 | EKG12_ITS ---
Test Reason : SOB Blood Pressure : / mmHG Vent. Rate : 086 BPM Atrial Rate : 086 BPM P-R Int : 154 ms QRS Dur : 076 ms QT Int : 406 ms P-R-T Axes : 057 015 064 degrees QTc Int : 485 ms Normal sinus rhythm Anteroseptal infarct , age undetermined Abnormal ECG Confirmed by NICOLE DIAZ, SHERITA ([id number]), advertising editor JACOB BETANCOURT ([id number]) on 07/04/2020 11:27:29 AM Referred By: Nalini Holbrook Confirmed By:SHERITA RIVERA MD
--- NOTE | 2020-07-01 19:33 | RAD_ITS ---
STUDY: X-RAY CHEST REASON FOR EXAM: Female, 65 years old. dyspnea TECHNIQUE: Single AP portable view of the chest. COMPARISON: Prior study of 09/20/2018 FINDINGS: awake overnight monitor leads are present. The lungs are clear and expanded. There is no demonstrated pleural abnormality. Normal size heart. Normal mediastinum and marie. Normal visualized pulmonary arteries. There are calcified plaques in the aortic arch. Normal visualized thoracic spine. Normal visualized ribs, clavicles, and shoulders. There is no demonstrated abnormality of the visualized soft tissue structures of the upper abdomen. RAD/Chest 1 View (Portable) IMPRESSION: Calcified plaques of the aortic arch. No acute cardiopulmonary disease process is seen. Chest findings are stable in the interval. Electronically Signed: Saurabh Parkinson MD at 20:33 EDT , Service support ,
--- NOTE | 2020-07-01 19:35 | ED.DCSUM_ITS ---
- ER Visit Summary Date of Service: 07/01/20 Chief Complaint: [Shortness of breath] History of Present Illness: The patient is a 65 F [presents with shortness of breath that started this morning. Patient has had a cough and at times bringing up some yellow sputum. She denies any chest pain. Patient has had a fever. Patient currently lives in a residential. She denies any exposures to COVID-19. Patient has history of COPD. Patient not on home O2 normally. Patient was noted to be hypoxic on EMS arrival with a pulse ox of 88%. EMS did give 1 DuoNeb in route. Patient denies any chest pain. She denies recent travel or surgery. No history of PE or DVT. Patient does have remote history of breast cancer with prior mastectomy.] Physical Examination: [HEENT-PERRLA, EOMI. Cranial nerves II through XII grossly intact. TMs clear. Mucous membranes moist. No adenopathy. Cardiovascular-regular rate and rhythm without murmur or ectopy Lungs-diminished breath sounds bilaterally with some expiratory wheezes noted bilaterally. Mild tachypnea. No accessory muscle use or retractions. Abdomen-normoactive bowel sounds, soft, nontender, no rebound or rigidity, no peritoneal signs. Extremities-intact ?4, normal range of motion, normal pulses, atraumatic] Test Results: [EKG obtained on arrival shows sinus rhythm with a ventricular rate of 86 bpm with old anterior septal infarct noted. CBC with differential showed a white count of 5.0, hemoglobin 14.9, hematocrit 44, platelet 231. Chemistries unremarkable. Troponin less than 0.015. Lactate was 1.8. Chest x- ray showed nothing acute. COVID-19 test ordered and was negative.. D-dimer test was normal.] Emergency Department Course and Treatment: [Patient received Solu-Medrol 125 mg IV.] Treatment Plan: [Case will be discussed with hospitalist to evaluate for admission] Disposition: [Admit] Impression: [COPD exacerbation Hypoxemia] This note was generated with [employer] dictation software. It may contain incorrect words, spelling, and punctuation that were not noted in review of the chart prior to signing ED Disposition - Plan for ED Patient:
[2020-07-01] MEDS: MethylPREDNISolone 125 MG/2 ML Vial IV (19:49)
[2020-07-01 19:59] LABS: Absolute Lymphocyte Count 1.24 X10^3/uL (0.83-4.51); Absolute Neutrophil Count 3.1 X10^3/uL (2.0-7.7); Basophil# 0.04 X10^3/uL; Basophil% 0.8 % (0-1); Eosinophil# 0.02 X10^3/uL; Eosinophils% 0.4 % (0-5); Hematocrit 44.2 % (37-47); Hemoglobin 14.9 g/dL (12.0-15.0); Lymphocyte # 1.24 X10^3/ul (4.0); Lymphocyte % 24.7 % (19-41); Mean Corp Hgb Conc 33.7 g/dL (32-36); Mean Corpuscular Hgb 31.4 pg (27.0-32.0); Mean Corpuscular Volume 93.1 fL (81-99); Mean Platelet Vol. 9.9 fl (6.2-12.0); Monocyte# 0.62 X10^3/uL; Monocyte% 12.4 % (0-10); NRBC Flagged by Analyzer 0 % (0-5); Neutrophil # 3.09 X10^3/uL (2.7-7.7); Neutrophil % 61.5 % (47-70); Platelet Count 231 K/mm3 (150-450); RBC Distribution Width CV 13.1 % (11.6-14.6); RBC Distribution Width SD 44.4 fl (35.1-43.9); Red Blood Count 4.75 M/mm3 (4.2-5.4)
--- NOTE | 2020-07-01 20:00 | ED.RN ---
this rn contacted classification case manager art education professor to try and obtain a medication list.
[2020-07-01 20:15] LABS: Anion Gap 3 (5-15); BUN 8 mg/dL (7-18); BUN/Creat Ratio 9.6 RATIO (10-20); Calcium,Total 9.2 mg/dL (8.5-10.1); Chloride 108 mmol/L (98-107); Creatinine, Serum 0.83 mg/dL (0.55-1.02); EST Glomerular Filtration Rate 73 mL/min (>60); Est Glom Filt Rate - Afr Amer 89 mL/min (>60); Estimated Creatinine Clearance 54.87 ml/min; Glucose 104 mg/dL (74-106); Potassium 3.9 mmol/L (3.5-5.1); Sodium Level 137 mmol/L (136-145)
[2020-07-01 20:33] LABS: Lactic Acid 1.8 mmol/L (0.4-1.9)
--- NOTE | 2020-07-01 20:40 | PCM.HP.STD ---
Problem List (1) COPD exacerbation Status: Acute (2) Arthritis Status: Chronic (3) Anxiety Status: Chronic (4) Depression Status: Chronic Qualifiers: Depression Type: unspecified Qualified Code(s): F32.9 - Major depressive disorder, single episode, unspecified (5) Allergic rhinitis Status: Chronic Qualifiers: Allergic rhinitis trigger: unspecified Allergic rhinitis seasonality: unspecified Qualified Code(s): J30.9 - Allergic rhinitis, unspecified (6) Schizophrenia Status: Chronic Qualifiers: Schizophrenia type: unspecified Qualified Code(s): F20.9 - Schizophrenia, unspecified (7) GERD (gastroesophageal reflux disease) Status: Chronic Qualifiers: Esophagitis presence: esophagitis presence not specified Qualified Code(s): K21.9 - Gastro-esophageal reflux disease without esophagitis (8) OAB (overactive bladder) Status: Chronic (9) Hypothyroidism Status: Chronic Qualifiers: Hypothyroidism type: unspecified Qualified Code(s): E03.9 - Hypothyroidism, unspecified (10) Hyperlipemia Status: Chronic Qualifiers: Hyperlipidemia type: unspecified Qualified Code(s): E78.5 - Hyperlipidemia, unspecified (11) Nicotine abuse Status: Chronic (12) HTN (hypertension) Status: Chronic Qualifiers: Hypertension type: essential hypertension Qualified Code(s): I10 - Essential (primary) hypertension (13) CAD (coronary artery disease) Status: Chronic Qualifiers: Coronary Disease-Associated Artery/Lesion type: unspecified vessel or lesion type [place] vs. transplanted heart: unspecified whether [place] or transplanted heart Associated angina: angina presence unspecified Qualified Code(s): I25.10 - Atherosclerotic heart disease of [place] coronary artery without angina pectoris History of Present Illness Date of Admission: 07/01/20 Chief Complaint: Dyspnea, productive cough, ? fever. The patient is a 65 y/o F w/ PMHx: Former EtOH abuse (Sober since 2009), Obesity, Chronic COPD, Ongoing Tobacco use, CAD, Hx Breast CA s/p mastectomy, OA, Anxiety and Depression/Schizophrenia, GERD, HTN, HLD, Hypothyroidism who presents to the [facility] ED on 07/01/20 with history of ongoing progressively worsening fatigue, malaise, productive cough (yellow sputum ) with dyspnea x 3 days in addition to reported fever with EMS noted upon initial arrival 88% on room air, more severe on day of ED presentation. She denies any recent COVID contacts, she noted improvement with duoneb in route per EMS. She does report however a frontal throbbing 3 out of 10 headache that is been consistently ongoing for the last 2448 hrs. in addition to nausea without emesis and 2 episodes of loose stools but no cramping abdominal pain and no alteration to sense of taste or smell. She denies any associated chest pain. Work-up in the ED included T 99, heart rate 94, BP 162/73, respiratory rate 31, initially 91% on room air with repeat 94% on 2 L nasal cannula, CBC with WC 5, hemoglobin 14.9, platelet 231 without market shift, BMP with chloride 108 otherwise not marked appearing, lactic acid pending, troponin less than 0.015, COVID pending, blood culture x2 pending per ED, chest x-ray with no acute cardiopulmonary findings, EKG with SR without acute evidence of ischemia with nonspecific changes. In the ED patient ministered Solu-Medrol 125 mg IV x1. Pending D-dimer per ED. Past Medical History Past Medical History (Chronic Problems): Chronic Problems (Last Reviewed 05/15/20 @ 10:48 by Kenyatta Sales) Arthritis (Chronic) Anxiety (Chronic) Depression (Chronic) Allergic rhinitis (Chronic) Schizophrenia (Chronic) GERD (gastroesophageal reflux disease) (Chronic) OAB (overactive bladder) (Chronic) Hypothyroidism (Chronic) Hyperlipemia (Chronic) Nicotine abuse (Chronic) HTN (hypertension) (Chronic) Breast cancer (Chronic) CAD (coronary artery disease) (Chronic) Medical History: Medical History (Last Reviewed 05/15/20 @ 10:48 by Kenyatta Sales) Arthritis (Acute) M19.90 Back problem (Acute) M53.9 Anxiety (Acute) F41.9 Depression (Acute) F32.9 Allergic rhinitis (Acute) J30.9 Schizophrenia (Acute) F20.9 GERD (gastroesophageal reflux disease) (Acute) K21.9 OAB (overactive bladder) (Acute) N32.81 HX: breast cancer (Acute) Z85.3 Hypothyroidism (Acute) E03.9 Hyperlipemia (Acute) E78.5 Nicotine abuse (Chronic) Z72.0 HTN (hypertension) (Chronic) I10 Breast cancer (Chronic) C50.919 Lives in skilled nursing (Acute) Z59.3 CAD (coronary artery disease) (Acute) I25.10 Acute bronchitis (Acute) J20.9 Chest pain (Acute) R07.9 Allergies milk Adverse Reaction (Verified 07/01/20 18:58) Diarrhea Home Medications: Ambulatory Orders Medication Instructions Recorded Tamoxifen Citrate [Nolvadex] 20 mg PO DAILY 07/23/17 Paliperidone [Paliperidone ER] 9 mg PO QHS 08/21/17 Solifenacin Succinate [Vesicare] 10 mg PO QHS 08/21/17 Calcium Carbonate/Vitamin D3 1 tab PO DAILY 09/20/18 [Calcium 600-Vit D3 200 Tablet] Metoprolol Tartrate [Lopressor 25 mg PO BID 09/20/18 (beta porfirio)] ipratropium bromide 42 mcg (0.06 2 spray INTRANASAL BID 05/15/20 %) nasal spray levothyroxine 125 mcg capsule 125 mcg PO DAILY 05/15/20 lisinopril 20 1 tab PO DAILY 05/15/20 mg-hydrochlorothiazide 12.5 mg tablet mirabegron 50 mg tablet,extended 50 mg PO DAILY 05/15/20 release 24 hr multivitamin 1 tab PO DAILY 05/15/20 omeprazole 40 mg capsule,delayed 40 mg PO QHS 05/15/20 release Acetaminophen [Tylenol] 325 mg PO Q6H PRN PRN 05/29/20 Albuterol Inhaler [Ventolin Hfa 1 - 2 puff INHALATION Q4H PRN PRN 05/29/20 (SP)] Docusate Sodium [Dok] 100 mg PO BID 05/29/20 Surgical History: Surgical History (Last Reviewed 05/15/20 @ 10:48 by Kenyatta Sales) History of (Acute) Z98.891 Hx of bladder repair surgery (Acute) Z98.890 History of mastectomy (Acute) Z90.10 Surgical History: - - L breast mastectomy, bilateral tubal ligation. Psychiatric History: Anxiety, Depression, Schizophrenia JR. JAVA DEVELOPER History: No pertinent JR. JAVA DEVELOPER history Lives: - - Patient was in a skilled nursing. Smoking Status: Current every day smoker - Ongoing 1 to 1.5 pack/day cigarette tobacco usage. Tobacco Use: Cigarettes Alcohol: Sober - Patient sober since 2009. Drugs: None - *Family History Maternal Family History: Family History (Last Reviewed 05/15/20 @ 10:48 by Kenyatta Sales) Sister Heart disease CVA (cerebral vascular accident) History Items: Cancer - Mother with a history of cervical cancer. Paternal Family History: Family History (Last Reviewed 05/15/20 @ 10:48 by Kenyatta Sales) Sister Heart disease CVA (cerebral vascular accident) History Items: Cancer - Father with a history of prostate cancer. Sibling Family History: Family History (Last Reviewed 05/15/20 @ 10:48 by Kenyatta Sales) Sister Heart disease CVA (cerebral vascular accident) History Items: - - Patient sister with a history of stroke and heart disease. Review of Systems Constitutional: Reports: Fever, Malaise, Fatigue. Denies: Anorexia, Chills, Weakness, Weight Change HEENT: Reports: Head Aches. Denies: Nasal Congestion, Post Nasal Drip, Sinus Congestion, Sinus Drainage, Sore Throat Cardiovascular: Denies: Chest Pain, Chest Pressure, Chest Tightness, Light Headedness, Orthopnea, Palpitations, Syncope Respiratory: Reports: Cough, Shortness of Breath, Shortness of breath at rest, Shortness of breath upon exertion, Sputum production, Wheezing Gastrointestinal: Reports: Diarrhea, Nausea. Denies: Abdominal Pain, Vomiting Genitourinary: Denies: Dysuria Musculoskeletal: Reports: Joint Pain. Denies: Joint Tenderness Skin: Denies: Rash, Wounds Neurological: Denies: Numbness, Tingling, Focal weakness Psychiatric: Reports: Anxiety, Depression. Denies: Homicidal Ideations, Suicidal Ideations Hematologic/ Lymphatic: Denies: Easy Bruising, Easy Bleeding VTE Information - Inpt Only VTE Present on Admission: No VTE Mechan Device Prophylaxis: SCD's VTE Pharm Prophylaxis ordered?: Yes Patient Problems: Active and Suspected Problems (Last Reviewed 05/15/20 @ 10:48 by Kenyatta Sales) COPD exacerbation (Acute) Subjective: Patient seated upright in the ED bed, fatigued appearance, no acute distress evident, improved since initial ED presentation. Objective: Physical Examination: General: awake, alert, oriented x 3 and cooperative, seated upright in the ED bed, fatigued appearance, no obvious evidence of respiratory distress. Skin: normal color, turgor, no icterus, cyanosis. HEENT: AT/NC, EOMI, PERRLA, moderately dry MM, no carotid bruits or JVD noted. Lungs: Diminished breath sounds throughout, greater bilateral bases, occasional end expiratory wheeze, no obvious rales or rhonchi, no evidence of respiratory distress but fatigued appearance. Heart: Regular rate and rhythm; no gallop, rub audible. Abdomen: soft, obese, NTTP, ND, mildly hyperactive BS, no HSM. Extremities: no cyanosis, clubbing, or edema. Neurological: patient awake, alert, oriented x 3; cognitive function appears likely baseline intact; pupils equally reactive to light and accomodation; cranial nerves II-XII grossly normal, moving all 4 extremities, no focal deficits, strength moderately to severely globally decreased secondary to acute presentation. Psychiatric: affect appears fatigued otherwise normal, no acute evidence of depressive or anxiety feelings. - Physical Exam Vitals/I&O's: Vital Signs Temp Pulse Resp BP Pulse Ox 98.6 F 85 17 147/77 H 95 07/01/20 20:37 07/01/20 20:37 07/01/20 20:37 07/01/20 20:37 07/01/20 20:37 Oxygen Flow Rate (L/min) 2 Oxygen Delivery Method Nasal Cannula Weight: 176 lb 5.917 oz Body Mass Index (BMI) 32.2 Laboratory Results 07/01/20 19:45: WBC 5.0, RBC 4.75, Hgb 14.9, Hct 44.2, MCV 93.1, MCH 31.4, MCHC 33.7, RDW Std Deviation 44.4 H, RDW Coeff of Jennifer 13.1, Plt Count 231, MPV 9.9, Immature Gran % (Auto) 0.200, Neut % (Auto) 61.5, Lymph % (Auto) 24.7, [place] % (Auto) 12.4 H, Eos % (Auto) 0.4, Baso % (Auto) 0.8, Absolute Neuts (auto) 3.1, Absolute Lymphs (auto) 1.24, Nucleated RBC % 0 07/01/20 19:45: Sodium 137, Potassium 3.9, Chloride 108 H, Carbon Dioxide 26.0, Anion Gap 3 L, BUN 8, Creatinine 0.83, Estim Creat Clear Calc 54.87, Est GFR (MDRD) Af Amer 89, Est GFR (MDRD) Non-Af 73, BUN/Creatinine Ratio 9.6 L, Glucose 104, Calcium 9.2, Troponin I < 0.015 07/01/20 19:45: Lactic Acid 1.8 07/01/20 19:47: D-Dimer Quant (PE/DVT) Pending 07/01/20 19:57: COVID-19 (SHAUNA) Pending Assessment/Plan All Active Problems (Last Reviewed 05/15/20 @ 10:48 by Kenyatta Sales) COPD exacerbation (Acute) Back problem (Acute) History of (Acute) Hx of bladder repair surgery (Acute) History of mastectomy (Acute) HX: breast cancer (Acute) Lives in skilled nursing (Acute) Acute bronchitis (Acute) Chest pain (Acute) The patient is a 65 y/o F w/ PMHx: Former EtOH Abuse (sober since 2009), Obesity, Chronic COPD, Ongoing Tobacco use, CAD, Hx Breast CA s/p mastectomy, OA, Anxiety and Depression/Schizophrenia, GERD, HTN, HLD, Hypothyroidism who presents to the [facility] ED on 07/01/20 with history of ongoing progressively worsening fatigue, malaise, productive cough with dyspnea x 3 days in addition to reported fever. 1. Acute on chronic COPD exacerbation: CXR w/ chronic changes, CBC on admission w/ no WBC elevation or left shift, T 99 at presentation but reported fever at home. Will admit to medical surgical floor, maintain on oxygen with wean as tolerated to room air, continue ATC duonebs, PRN albuterol, IV methylprednisolone, HOB, IS parameters, IV Doxycycline with pending sputum cultures given history of productive cough and subjective fevers noted at facility. COVID testing pending per ED. Does report concurrent headache and loose stool x 2. Will transition to COVID MS unit if positive and would obtain COVID lab panel concurrently. 2. CAD: Reported in history, no history of PCI, not even on aspirin therapy, will add, continue lisinopril and metoprolol, not on statin therapy, defer to outpatient. 3. Anxiety and depression/schizophrenia: We will continue patient home paliperidone regimen, plan transition back to skilled nursing once clinically appropriate. 4. Hypertension: Continue home regimen including lisinopril, metoprolol with hold parameters, PRN hydralazine. 5. Hyperlipidemia: Not on regimen, defer to outpatient. 6. Obesity: Weight loss and lifestyle changes encouraged. 7. Tobacco Abuse: Encouraged cessation, inpatient consultation per RT, NR if desired. 8. History of left breast cancer, unclear type: Patient status post left mastectomy, unclear specific type of breast cancer, continue tamoxifen regimen. 9. Hypothyroidism: Continue home synthroid regimen. 10. DVT prophylaxis: SCDs, Lovenox. Inpatient E&M: 57606 Init Hosp L3
[2020-07-01 21:10] LABS: D-Dimer Quantitative (DVT/PE) 0.29 FEU/ug/m (0.27-0.49)
[2020-07-01 21:24] LABS: Probe Check PASS; Specimen Processing Control PASS
[2020-07-01] MEDS: 0.9% Saline Lock 10 ML Syringe IV (22:32)
[2020-07-01] MEDS: 0.9% Normal Saline 1,000 ML 100 ML IV (22:33)
[2020-07-01] MEDS: Ipratropium/Albuterol Sulfate 3 ML AMPUL.NEB INHALATION (22:41)
[2020-07-01] MEDS: Ipratropium Bromide 0.06% NASAL SPRAY 2 SPRAY NASAL (22:42)
[2020-07-01] MEDS: Docusate Sodium 100 MG Capsule PO (22:43)
[2020-07-01] MEDS: Tolterodine Tartrate 4 MG CAP.SA PO (22:44)
[2020-07-01] MEDS: Metoprolol Tartrate 25 MG Tablet PO (22:51)
[2020-07-01 23:12] LABS: Magnesium 2.2 mg/dL (1.6-2.6)
[2020-07-01] MEDS: guaiFENesin 10 ML UDC (200MG/10ML) 20 ML PO (23:40)
[2020-07-02] VITALS (14 sets, daily range): BP systolic 143–158; BP diastolic 68–77; PULSE 65–88; RESP 18–20; TEMP 36.6–37.1; O2SAT 92–96
[2020-07-02] MEDS: Ipratropium/Albuterol Sulfate 3 ML AMPUL.NEB INHALATION ×5 (03:40→18:40)
[2020-07-02] MEDS: Levothyroxine 125 MCG Tablet PO (05:32)
[2020-07-02 05:38] LABS: Absolute Lymphocyte Count 0.35 X10^3/uL (0.83-4.51); Absolute Neutrophil Count 3.3 X10^3/uL (2.0-7.7); Basophil# 0.02 X10^3/uL; Basophil% 0.5 % (0-1); Eosinophil# 0.07 X10^3/uL; Eosinophils% 1.8 % (0-5); Hematocrit 43.9 % (37-47); Hemoglobin 14.3 g/dL (12.0-15.0); Lymphocyte # 0.35 X10^3/ul (4.0); Lymphocyte % 9.1 % (19-41); Mean Corp Hgb Conc 32.6 g/dL (32-36); Mean Corpuscular Hgb 30.4 pg (27.0-32.0); Mean Corpuscular Volume 93.4 fL (81-99); Mean Platelet Vol. 9.5 fl (6.2-12.0); Monocyte# 0.07 X10^3/uL; Monocyte% 1.8 % (0-10); NRBC Flagged by Analyzer 0 % (0-5); Neutrophil # 3.31 X10^3/uL (2.7-7.7); Neutrophil % 86.3 % (47-70); POSITIVE DIFFERENTIAL YES; Platelet Count 209 K/mm3 (150-450); RBC Distribution Width CV 12.9 % (11.6-14.6); RBC Distribution Width SD 44.6 fl (35.1-43.9); White Blood Count 3.8 K/mm3 (4.4-11.0)
[2020-07-02 05:45] LABS: Differential Indicated SCAN CRITERIA MET
[2020-07-02] MEDS: guaiFENesin 10 ML UDC (200MG/10ML) 20 ML PO ×2 (05:46→19:04)
[2020-07-02 05:58] LABS: ALB/GLOB Ratio 1.1 RATIO (0.9-2.4); AST(SGOT) 13 U/L (15-37); Alanine Aminotransfer ALT/SGPT 17 U/L (13-56); Albumin, Serum 3.3 g/dL (3.2-5.0); Alkaline Phosphatase 77 U/L (45-117); Anion Gap 7 (5-15); BUN 8 mg/dL (7-18); BUN/Creat Ratio 12.5 RATIO (10-20); Calcium,Total 8.7 mg/dL (8.5-10.1); Chloride 108 mmol/L (98-107); Creatinine, Serum 0.64 mg/dL (0.55-1.02); EST Glomerular Filtration Rate 99 mL/min (>60); Est Glom Filt Rate - Afr Amer 120 mL/min (>60); Estimated Creatinine Clearance 67.89 ml/min; Globulin 3.1 g/dL (2.2-4.2); Glucose 153 mg/dL (74-106); Potassium 3.4 mmol/L (3.5-5.1); Protein, Total 6.4 g/dL (6.4-8.2); Sodium Level 138 mmol/L (136-145)
[2020-07-02 06:19] LABS: Differential Comment SCANNED
--- NOTE | 2020-07-02 06:26 | NURSING ---
Caregiver number called at this time to obtain pt's home medication list. Counseling service answered, this RN spoke with Crystal, message given for pt's collar runner Cally Mariano to return call to hospital. Crystal stated someone should be in by 9am to return phone call.
[2020-07-02] MEDS: BENZOCAINE/MENTHOL 1 LOZENGE MUCOUS MEM ×2 (06:45→19:07)
[2020-07-02] MEDS: 0.9% Normal Saline 1,000 ML 100 ML IV ×2 (10:18→20:15)
[2020-07-02] MEDS: Ipratropium Bromide 0.06% NASAL SPRAY 2 SPRAY NASAL ×2 (10:23→21:40)
[2020-07-02] MEDS: Docusate Sodium 100 MG Capsule PO ×2 (10:24→21:40)
[2020-07-02] MEDS: Lisinopril 20 MG Tablet PO (10:24)
[2020-07-02] MEDS: Metoprolol Tartrate 25 MG Tablet PO ×2 (10:24→21:40)
[2020-07-02] MEDS: hydroCHLOROthiazide 12.5mg 12.5 MG PO (10:24)
[2020-07-02] MEDS: Calcium Carb/Vitamin D 1 TABLET Tablet PO (10:24)
[2020-07-02] MEDS: Enoxaparin 40 MG/0.4 ML Syringe SC (10:25)
[2020-07-02] MEDS: Mirabegron 50 MG TAB.ER.24H PO (10:28)
[2020-07-02] MEDS: Tamoxifen 10 MG Tablet 20 MG PO (10:28)
--- NOTE | 2020-07-02 10:43 | CASEMGMT ---
Addendum entered by Laura Melara 07/02/20 12:04: SW received message from pt's CM Cally. Cally states pt is not able to return to [facility]p with oxygen. Cally states pt has guardian Nikki Hu. SW placed a call back to Cally and left message asking for Nikki's contact information. Original Note: Social Work Assessment Referral Date: 07/02/2020 Date of Assessment: 07/02/2020 Reason for consult: [facility] resident Informant: SW Personal Status: SW met with pt to complete initial assessment. SW introduced self and role at [facility]. Pt is alert and orientated x3. Pt confirms that she lives in a [facility] with six other people. 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 Pt states that the usp as seven steps to enter. Pt states that she was previously independent with ADLS, states that usp staff/counselors transport pt. Pt states PCP is Dr. Ge and Pharmacy is [facility]. Pt denied DME in the home, denied home oxygen. Pt states that she has a Electrician Chief Cally through [facility]. Substance Abuse Hx: Pt states history of ETOH and drug use/abuse. Pt denied current use. Pt states that she smokes cigarettes daily and states she smokes half a pack to a pack a day. Mental Health Hx: Pt states she has depression, is a slow learner and has little bit of Schizophrenia. Per H+P, pt has anxiety, depression and Schizophrenia. Pt states that she prefers to discharge back to the usp at discharge. SW explained that this worker will need to check with usp to determine if they can accept pt back. Pt states understanding, denied additional needs or concerns at this time. SW placed a call to pt's CM Cally Mariano at [facility] and left message asking if pt is able to return to usp with oxygen if oxygen is needed. SW waiting for call back. Plan: Likely return to usp at discharge. SW checking to see if usp is able to accept pt back with oxygen as pt is currently on 2 Liters of oxygen. Laura Melara CERTIFIED PERSONAL CHEF, MULTIPLE SPINDLE ROUTER OPERATOR
--- NOTE | 2020-07-02 13:49 | PCM.PN.HOSP ---
Patient Problems: Active and Suspected Problems (Last Reviewed 05/15/20 @ 10:48 by Kenyatta Sales) COPD exacerbation (Acute) Reason for Visit: COPD Subjective: breathing better. Not on oxygen at home. Vitals/I&O's: Vital Signs Temp Pulse Resp BP Pulse Ox 36.8 C 76 18 153/68 H 94 07/02/20 10:11 07/02/20 11:36 07/02/20 11:36 07/02/20 10:24 07/02/20 10:11 Oxygen Flow Rate (L/min) 2 Oxygen Delivery Method Nasal Cannula Weight: 76.6 kg Body Mass Index (BMI) 31.8 Intake and Output for Last 24 Hours 06/30/20 07/01/20 07/02/20 23:59 23:59 23:59 Intake Total 1418.33 / 1418.33 4266.67 / 4266.67 Balance 1418.33 / 1418.33 4266.67 / 4266.67 General: Alert, No apparent distress HEENT: Atraumatic, Normocephalic Neck: No Nodes, Thyroid Normal Size and Texture Lungs: Clear to auscultation, Normal air movement, No rhonchi, No wheeze, No rales Cardiovascular: Regular rate, Regular Rhythm, Normal S1, Normal S2, No murmurs Abdomen: Bowel Sounds Present, Soft, Non Tender, Non-Distended, No Hepato-splenomegaly Extremities: No edema, No Calf Tenderness Psych/Mental Status: Normal Affect, Appropriate Microbiology Past 72 Hours 07/01/20 22:50 Sputum, Expectorated/Coughed Gram Stain - Final Laboratory Results 07/01/20 19:45: WBC 5.0, RBC 4.75, Hgb 14.9, Hct 44.2, MCV 93.1, MCH 31.4, MCHC 33.7, RDW Std Deviation 44.4 H, RDW Coeff of Jennifer 13.1, Plt Count 231, MPV 9.9, Immature Gran % (Auto) 0.200, Neut % (Auto) 61.5, Lymph % (Auto) 24.7, Navarro % (Auto) 12.4 H, Eos % (Auto) 0.4, Baso % (Auto) 0.8, Absolute Neuts (auto) 3.1, Absolute Lymphs (auto) 1.24, Nucleated RBC % 0 07/01/20 19:45: Sodium 137, Potassium 3.9, Chloride 108 H, Carbon Dioxide 26.0, Anion Gap 3 L, BUN 8, Creatinine 0.83, Estim Creat Clear Calc 54.87, Est GFR (MDRD) Af Amer 89, Est GFR (MDRD) Non-Af 73, BUN/Creatinine Ratio 9.6 L, Glucose 104, Calcium 9.2, Troponin I < 0.015 07/01/20 19:45: Lactic Acid 1.8 07/01/20 19:45: Magnesium 2.2 07/01/20 19:47: D-Dimer Quant (PE/DVT) Cancelled 07/01/20 19:57: COVID-19 (SHAUNA) Negative 07/01/20 20:50: D-Dimer Quant (PE/DVT) 0.29 07/02/20 05:31: WBC 3.8 L, RBC 4.70, Hgb 14.3, Hct 43.9, MCV 93.4, MCH 30.4, MCHC 32.6, RDW Std Deviation 44.6 H, RDW Coeff of Jennifer 12.9, Plt Count 209, MPV 9.5, Immature Gran % (Auto) 0.500, Neut % (Auto) 86.3 H, Lymph % (Auto) 9.1 L, Navarro % (Auto) 1.8, Eos % (Auto) 1.8, Baso % (Auto) 0.5, Absolute Neuts (auto) 3.3, Absolute Lymphs (auto) 0.35 L, Nucleated RBC % 0, Differential Comment SCANNED, Diff Path Review February07/02/20 05:31: Sodium 138, Potassium 3.4 L, Chloride 108 H, Carbon Dioxide 23.0, Anion Gap 7, BUN 8, Creatinine 0.64, Estim Creat Clear Calc 67.89, Est GFR (MDRD) Af Amer 120, Est GFR (MDRD) Non-Af 99, BUN/Creatinine Ratio 12.5, Glucose 153 H, Calcium 8.7, Total Bilirubin 0.20, AST 13 L, ALT 17, Alkaline Phosphatase 77, Total Protein 6.4, Albumin 3.3, Globulin 3.1, Albumin/Globulin Ratio 1.1 Current Medications Acetaminophen (Tylenol) 650 mg PO Q6H PRN PRN PRN Reason: Pain Score 1-10/Temp > 100.7 F Al Hydroxide/Mg Hydroxide (Mylanta Ii) 30 ml PO Q6H PRN PRN PRN Reason: Gastric Burning Albuterol Sulfate (Ventolin Aerosols) 2.5 mg INHALATION Q2H PRN PRN PRN Reason: Dyspnea, wheezing Albuterol/Ipratropium (Duoneb) 3 ml INHALATION Q4HWA.RT [facility] Last Admin: 07/02/20 11:36 Dose: 3 ml Documented by: Calcium/Vitamin D (Os-Caleb 500mg + D) 1 tablet PO DAILY [facility] Last Admin: 07/02/20 10:24 Dose: 1 tablet Documented by: Docusate Sodium (Colace) 100 mg PO BID [facility] Last Admin: 07/02/20 10:24 Dose: 100 mg Documented by: Enoxaparin Sodium (Lovenox) 40 mg SC DAILY [facility] Last Admin: 07/02/20 10:25 Dose: 40 mg Documented by: Guaifenesin (Robitussin) 20 ml PO Q4H PRN PRN PRN Reason: COUGH Last Admin: 07/02/20 05:46 Dose: 20 ml Documented by: Hydralazine HCl (Apresoline Iv) 10 mg IV Q4H PRN PRN PRN Reason: SBP > 160 Hydrochlorothiazide () 12.5 mg PO DAILY [facility] Last Admin: 07/02/20 10:24 Dose: 12.5 mg Documented by: Sodium Chloride () 250 mls @ 15 mls/hr IV .[id number] PRN PRN Reason: Saline Flush Sodium Chloride () 250 mls @ 15 mls/hr IV .[id number] PRN PRN Reason: Additional IVPB Infusion Sodium Chloride () 1,000 mls @ 100 mls/hr IV .Q10H [facility] Last Admin: 07/02/20 10:18 Dose: 100 mls/hr Documented by: Doxycycline Hyclate 100 mg/ (Dextrose) 260 mls @ 250 mls/hr IV Q12 [facility] Last Admin: 07/02/20 10:49 Dose: 250 mls/hr Documented by: Ipratropium [place] (Atrovent Nasal [place] (G)) 2 spray NASAL BID [facility] Last Admin: 07/02/20 10:23 Dose: 2 spray Documented by: Levothyroxine Sodium (Synthroid) 125 mcg PO DAILY@0600 [facility] Last Admin: 07/02/20 05:32 Dose: 125 mcg Documented by: Lisinopril (Zestril) 20 mg PO DAILY [facility] Last Admin: 07/02/20 10:24 Dose: 20 mg Documented by: Magnesium Hydroxide (Milk Of Magnesia) 30 ml PO DAILY PRN PRN PRN Reason: Constipation Melatonin (Melatonin) 3 mg PO QHS PRN PRN PRN Reason: INSOMNIA Methylprednisolone (Solu-Medrol) 40 mg IV Q8 [facility] Last Admin: 07/02/20 05:32 Dose: 40 mg Documented by: Metoprolol Tartrate (Lopressor (Beta Isis)) 25 mg PO BID [facility] Last Admin: 07/02/20 10:24 Dose: 25 mg Documented by: Mirabegron (Myrbetriq) 50 mg PO DAILY [facility] Last Admin: 07/02/20 10:28 Dose: 50 mg Documented by: Ondansetron HCl (Zofran) 4 mg IV Q8H PRN PRN PRN Reason: NAUSEA/VOMITING Pantoprazole Sodium (Protonix) 40 mg PO QHS [facility] Prochlorperazine Edisylate (Compazine Iv) 5 mg IV Q4H PRN PRN PRN Reason: Breakthrough nausea/vomiting Psyllium Hydrophilic Mucilloid (Metamucil) 1 packet PO DAILY PRN PRN PRN Reason: Constipation Sodium Chloride () 10 - 40 ml IV UD PRN PRN Reason: SALINE FLUSH Last Admin: 07/01/20 22:32 Dose: 10 ml Documented by: Tamoxifen Citrate (Nolvadex) 20 mg PO DAILY [facility] Last Admin: 07/02/20 10:28 Dose: 20 mg Documented by: Throat Lozenges (Cepacol Sore Throat Lozenge) 1 lozenge MUCOUS MEM Q2H PRN PRN PRN Reason: SORE THROAT Last Admin: 07/02/20 06:45 Dose: 1 lozenge Documented by: Tolterodine Tartrate (Detrol La) 4 mg PO QHS [facility] Last Admin: 07/01/20 22:44 Dose: 4 mg Documented by: STROKE Vital Signs/Narrative: Vital Signs Temp Pulse Resp BP Pulse Ox 07/02/20 11:36 76 18 07/02/20 10:24 88 153/68 H 07/02/20 10:11 36.8 C 88 18 153/68 H 94 Medical Necessity - Tobacco Use Smoking Status: Current every day smoker Tobacco Use: Cigarettes Assessment/Plan All Active Problems (Last Reviewed 05/15/20 @ 10:48 by Kenyatta Sales) COPD exacerbation (Acute) Back problem (Acute) History of (Acute) Hx of bladder repair surgery (Acute) History of mastectomy (Acute) HX: breast cancer (Acute) Lives in longterm (Acute) Acute bronchitis (Acute) Chest pain (Acute) 1. acute COPD exacerbation continue BDs, methylpred, doxycycline wean oxygen as tolerated 2. schizophrenia on paliperidone at home, but not locally available will hold for now, unless patient can get home dosing 3. Chronic conditions: anxiety, depression, GERD, OAB, hypothyroidism, HLP CAD: all stable, but overall complicate medical care 4. VTE prophylaxis: LMWH Inpatient E&M: 25167 Subs Hosp L2
--- NOTE | 2020-07-02 14:49 | CASEMGMT ---
Addendum entered by Laura Melara 07/02/20 14:59: Guardianship paperwork received, SW placed on pt's chart. Original Note: Social Work Note SW received call from pt's guardian Nikki Morgan ([phone]). PARESH updated Nikki on pt's admission to [facility] and plan is to hopefully have pt return to shelter if pt is able to be weaned off oxygen. Nikki states it would be beneficial for pt to follow up with a veneer jointer as well. Nikki states she doesn't think pt meets SNF level of care at this time as pt is still pretty independent at the shelter. Nikki states [facility] should have copies of guardianship paperwork for pt. PARESH placed a call to [facility] and spoke with Deana in Medical Records and requested guardianship paperwork to be faxed to [facility]. Laura Melara TRANSLATOR, EXECUTIVE CANDIDATE DEVELOPER
--- NOTE | 2020-07-02 18:58 | NURSING ---
called outsole caser for pt and gave fax number for updated med list
[2020-07-02] MEDS: Ondansetron 4 MG/2 ML Vial IV (19:02)
[2020-07-02] MEDS: Acetaminophen 325 MG Tablet 650 MG PO (19:06)
[2020-07-02] MEDS: Tolterodine Tartrate 4 MG CAP.SA PO (21:40)
[2020-07-02] MEDS: Pantoprazole Sodium 40 MG Tablet PO (21:40)
[2020-07-03] VITALS (9 sets, daily range): BP systolic 132–155; BP diastolic 65–86; PULSE 64–74; RESP 16–26; TEMP 36.7–37.1; O2SAT 93–97
[2020-07-03] MEDS: Levothyroxine 125 MCG Tablet PO (05:35)
[2020-07-03] MEDS: guaiFENesin 10 ML UDC (200MG/10ML) 20 ML PO (05:40)
[2020-07-03] MEDS: BENZOCAINE/MENTHOL 1 LOZENGE MUCOUS MEM (05:40)
[2020-07-03] MEDS: Albuterol 2.5 MG/3 ML VIAL.NEB. INHALATION (05:47)
[2020-07-03] MEDS: 0.9% Normal Saline 1,000 ML 100 ML IV (06:07)
[2020-07-03] MEDS: Ipratropium Bromide 0.06% NASAL SPRAY 2 SPRAY NASAL (09:13)
[2020-07-03] MEDS: Docusate Sodium 100 MG Capsule PO (09:14)
[2020-07-03] MEDS: hydroCHLOROthiazide 12.5mg 12.5 MG PO (09:15)
[2020-07-03] MEDS: Metoprolol Tartrate 25 MG Tablet PO (09:15)
[2020-07-03] MEDS: Enoxaparin 40 MG/0.4 ML Syringe SC (09:15)
[2020-07-03] MEDS: Mirabegron 50 MG TAB.ER.24H PO (09:15)
[2020-07-03] MEDS: Lisinopril 20 MG Tablet PO (09:16)
[2020-07-03] MEDS: Tamoxifen 10 MG Tablet 20 MG PO (09:16)
[2020-07-03] MEDS: Calcium Carb/Vitamin D 1 TABLET Tablet PO (09:16)
[2020-07-03] MEDS: Doxycycline 100 MG CAPSULE PO (09:52)
[2020-07-03] MEDS: Acetaminophen 325 MG Tablet 650 MG PO (09:52)
[2020-07-03] MEDS: Ipratropium/Albuterol Sulfate 3 ML AMPUL.NEB INHALATION (11:40)
--- NOTE | 2020-07-03 12:37 | PCM.DC ---
- Discharge Diagnoses Current Active Problems: Current Active and Chronic Problems (Last Reviewed 05/15/20 @ 10:48 by Kenyatta Sales) COPD exacerbation (Acute) You will use the following diet at home:: No restrictions Your food should be the consistency of: Regular Your liquids should be the consistency of: Regular/Thin Discharge Activity: Return to Normal Activity Call your doctor if you observe: Fever of 101 or Higher, Shortness of breath Allergies/Adverse Reactions: Allergies milk Adverse Reaction (Verified 07/01/20 21:58) Diarrhea Medications to take at Discharge Tamoxifen Citrate [Nolvadex] 20 mg PO DAILY 07/23/17 Paliperidone [Paliperidone ER] 9 mg PO QHS 08/21/17 Solifenacin Succinate [Vesicare] 10 mg PO QHS 08/21/17 Calcium Carbonate/Vitamin D3 [Calcium 600-Vit D3 200 Tablet] 1 tab PO DAILY 09/20/18 Metoprolol Tartrate [Lopressor (beta porfirio)] 25 mg PO BID 09/20/18 ipratropium bromide 42 mcg (0.06 %) nasal spray 2 spray INTRANASAL BID 05/15/20 levothyroxine 125 mcg capsule 125 mcg PO DAILY 05/15/20 lisinopril 20 mg-hydrochlorothiazide 12.5 mg tablet 1 tab PO DAILY 05/15/20 mirabegron 50 mg tablet,extended release 24 hr 50 mg PO DAILY 05/15/20 multivitamin 1 tab PO DAILY 05/15/20 omeprazole 40 mg capsule,delayed release 40 mg PO QHS 05/15/20 Acetaminophen [Tylenol] 325 mg PO Q6H PRN PRN 05/29/20 Albuterol Inhaler [Ventolin Hfa] 1 - 2 puff INHALATION Q4H PRN PRN 05/29/20 Docusate Sodium [Dok] 100 mg PO BID 05/29/20 Doxycycline 100 mg PO BID #6 cap 07/03/20 Prednisone 4 tab PO DAILY #20 tab 07/03/20 The following prescriptions were given: Doxycycline 100 mg PO BID #6 cap Transmission Status: Pending to [facility] Prednisone 4 tab PO DAILY #20 tab Transmission Status: Pending to [facility] Primary Care Physician: Dg Ge Chi, MD [Primary Care Provider] - Within 1 Week Test Results: Test results from this visit will be discussed in further detail at your follow-up appointment, if applicable. Proposed Discharge Date: 07/03/20
--- NOTE | 2020-07-03 12:38 | DS.PCM_ITS ---
Discharge Date and Diagnosis - Problem List Patient Problems: Active and Suspected Problems (Last Reviewed 05/15/20 @ 10:48 by Kenyatta Sales) COPD exacerbation (Acute) Date of Admission: 07/01/20 Date of Discharge: 07/03/20 - Primary Discharge Diagnosis Acute Problems: Active Problems (Last Reviewed 05/15/20 @ 10:48 by Kenyatta Sales) COPD exacerbation (Acute) - Secondary Discharge Diagnosis Chronic Problems: Chronic Problems (Last Reviewed 05/15/20 @ 10:48 by Kenyatta Sales) Arthritis (Chronic) Anxiety (Chronic) Depression (Chronic) Allergic rhinitis (Chronic) Schizophrenia (Chronic) GERD (gastroesophageal reflux disease) (Chronic) OAB (overactive bladder) (Chronic) Hypothyroidism (Chronic) Hyperlipemia (Chronic) Nicotine abuse (Chronic) HTN (hypertension) (Chronic) Breast cancer (Chronic) CAD (coronary artery disease) (Chronic) Hospital Course and Treatment Imaging Results: Clinical Impression(s) from Imaging Studies Chest X-Ray 07/01/20 19:33 IMPRESSION: Calcified plaques of the aortic arch. No acute cardiopulmonary disease process is seen. Chest findings are stable in the interval. Electronically Signed: Saurabh Parkinson MD at 20:33 EDT , Service support , Operations: None Procedures: None Summary of Care Provided: The patient is a 65 year old F presents with shortness of breath and cough. Patient was diagnosed with an acute exacerbation of COPD and started on doxycycline, methylprednisolone and bronchodilators. Patient steadily improved during the course of her hospitalization. Patient resides at a snf and would not be able to take her if she would acquire oxygen. Patient was ambulated today and dropped only to 93% on room air. Patient will be able to return to her snf in stable condition. Patient will be discharged with 5 days of prednisone as well as 3 more days of doxycycline. No infiltrate was noted on the chest x-ray. [] Patient Problems: Active and Suspected Problems (Last Reviewed 05/15/20 @ 10:48 by Kenyatta Sales) COPD exacerbation (Acute) - Physical Exam Vitals/I&O's: Vital Signs Temp Pulse Resp BP Pulse Ox 36.7 C 71 19 H 155/86 H 95 07/03/20 08:20 07/03/20 11:49 07/03/20 11:49 07/03/20 08:20 07/03/20 09:38 Oxygen Flow Rate (L/min) 2 Oxygen Delivery Method Room Air Weight: 76.6 kg Body Mass Index (BMI) 31.8 Intake and Output for Last 24 Hours 07/01/20 07/02/20 07/03/20 23:59 23:59 23:59 Intake Total 1418.33 / 1418.33 6620.00 / 6620.00 743.33 / 743.33 Output Total 400 / 400 600 / 600 Balance 1418.33 / 1418.33 6220.00 / 6220.00 143.33 / 143.33 General: Alert, No apparent distress HEENT: Atraumatic, Normocephalic Oral: Moist Mucosa, No Gingival or Mucosal Lesions/ Ulcerations Neck: No Nodes, Thyroid Normal Size and Texture Lungs: Clear to auscultation, Normal air movement, No rhonchi, No wheeze, No rales Cardiovascular: Regular rate, Regular Rhythm, Normal S1, Normal S2, No murmurs Abdomen: Bowel Sounds Present, Soft, Non Tender, Non-Distended, No Hepato- splenomegaly Extremities: No edema, No Calf Tenderness Skin: No rashes, No breakdown Microbiology Past 72 Hours 07/01/20 22:50 Sputum, Expectorated/Coughed Gram Stain - Final 07/01/20 22:50 Sputum, Expectorated/Coughed Respiratory Culture - Preliminary Current Medications Acetaminophen (Tylenol) 650 mg PO Q6H PRN PRN PRN Reason: Pain Score 1-10/Temp > 100.7 F Last Admin: 07/03/20 09:52 Dose: 650 mg Documented by: Al Hydroxide/Mg Hydroxide (Mylanta Ii) 30 ml PO Q6H PRN PRN PRN Reason: Gastric Burning Albuterol Sulfate (Ventolin Aerosols) 2.5 mg INHALATION Q2H PRN PRN PRN Reason: Dyspnea, wheezing Last Admin: 07/03/20 05:47 Dose: 2.5 mg Documented by: Albuterol/Ipratropium (Duoneb) 3 ml INHALATION Q4HWA.RT [facility] Last Admin: 07/03/20 11:40 Dose: 3 ml Documented by: Calcium/Vitamin D (Os-Caleb 500mg + D) 1 tablet PO DAILY [facility] Last Admin: 07/03/20 09:16 Dose: 1 tablet Documented by: Docusate Sodium (Colace) 100 mg PO BID [facility] Last Admin: 07/03/20 09:14 Dose: 100 mg Documented by: Doxycycline Monohydrate (Doxycycline) 100 mg PO BID [facility] Last Admin: 07/03/20 09:52 Dose: 100 mg Documented by: Enoxaparin Sodium (Lovenox) 40 mg SC DAILY [facility] Last Admin: 07/03/20 09:15 Dose: 40 mg Documented by: Guaifenesin (Robitussin) 20 ml PO Q4H PRN PRN PRN Reason: COUGH Last Admin: 07/03/20 05:40 Dose: 20 ml Documented by: Hydralazine HCl (Apresoline Iv) 10 mg IV Q4H PRN PRN PRN Reason: SBP > 160 Hydrochlorothiazide () 12.5 mg PO DAILY [facility] Last Admin: 07/03/20 09:15 Dose: 12.5 mg Documented by: Sodium Chloride () 250 mls @ 15 mls/hr IV .[id number] PRN PRN Reason: Saline Flush Sodium Chloride () 250 mls @ 15 mls/hr IV .[id number] PRN PRN Reason: Additional IVPB Infusion Sodium Chloride () 1,000 mls @ 100 mls/hr IV .Q10H [facility] Last Admin: 07/03/20 06:07 Dose: 100 mls/hr Documented by: Ipratropium [place] (Atrovent Nasal [place] (G)) 2 spray NASAL BID [facility] Last Admin: 07/03/20 09:13 Dose: 2 spray Documented by: Levothyroxine Sodium (Synthroid) 125 mcg PO DAILY@0600 [facility] Last Admin: 07/03/20 05:35 Dose: 125 mcg Documented by: Lisinopril (Zestril) 20 mg PO DAILY [facility] Last Admin: 07/03/20 09:16 Dose: 20 mg Documented by: Magnesium Hydroxide (Milk Of Magnesia) 30 ml PO DAILY PRN PRN PRN Reason: Constipation Melatonin (Melatonin) 3 mg PO QHS PRN PRN PRN Reason: INSOMNIA Methylprednisolone (Solu-Medrol) 40 mg IV Q8 [facility] Last Admin: 07/03/20 05:35 Dose: 40 mg Documented by: Metoprolol Tartrate (Lopressor (Beta Isis)) 25 mg PO BID [facility] Last Admin: 07/03/20 09:15 Dose: 25 mg Documented by: Mirabegron (Myrbetriq) 50 mg PO DAILY [facility] Last Admin: 07/03/20 09:15 Dose: 50 mg Documented by: Ondansetron HCl (Zofran) 4 mg IV Q8H PRN PRN PRN Reason: NAUSEA/VOMITING Last Admin: 07/02/20 19:02 Dose: 4 mg Documented by: Pantoprazole Sodium (Protonix) 40 mg PO QHS [facility] Last Admin: 07/02/20 21:40 Dose: 40 mg Documented by: Prochlorperazine Edisylate (Compazine Iv) 5 mg IV Q4H PRN PRN PRN Reason: Breakthrough nausea/vomiting Psyllium Hydrophilic Mucilloid (Metamucil) 1 packet PO DAILY PRN PRN PRN Reason: Constipation Sodium Chloride () 10 - 40 ml IV UD PRN PRN Reason: SALINE FLUSH Last Admin: 07/01/20 22:32 Dose: 10 ml Documented by: Tamoxifen Citrate (Nolvadex) 20 mg PO DAILY [facility] Last Admin: 07/03/20 09:16 Dose: 20 mg Documented by: Throat Lozenges (Cepacol Sore Throat Lozenge) 1 lozenge MUCOUS MEM Q2H PRN PRN PRN Reason: SORE THROAT Last Admin: 07/03/20 05:40 Dose: 1 lozenge Documented by: Tolterodine Tartrate (Detrol La) 4 mg PO QHS [facility] Last Admin: 07/02/20 21:40 Dose: 4 mg Documented by: Discharge Diet: No Restrictions Discharge Activity: Return to Normal Activity Call your doctor if you observe: Fever of 101 or Higher, Shortness of breath Home Medications: Medications to take at Discharge Tamoxifen Citrate [Nolvadex] 20 mg PO DAILY 07/23/17 Paliperidone [Paliperidone ER] 9 mg PO QHS 08/21/17 Solifenacin Succinate [Vesicare] 10 mg PO QHS 08/21/17 Calcium Carbonate/Vitamin D3 [Calcium 600-Vit D3 200 Tablet] 1 tab PO DAILY 09/20/18 Metoprolol Tartrate [Lopressor (beta isis)] 25 mg PO BID 09/20/18 ipratropium bromide 42 mcg (0.06 %) nasal spray 2 spray INTRANASAL BID 05/15/20 levothyroxine 125 mcg capsule 125 mcg PO DAILY 05/15/20 lisinopril 20 mg-hydrochlorothiazide 12.5 mg tablet 1 tab PO DAILY 05/15/20 mirabegron 50 mg tablet,extended release 24 hr 50 mg PO DAILY 05/15/20 multivitamin 1 tab PO DAILY 05/15/20 omeprazole 40 mg capsule,delayed release 40 mg PO QHS 05/15/20 Acetaminophen [Tylenol] 325 mg PO Q6H PRN PRN 05/29/20 Albuterol Inhaler [Ventolin Hfa] 1 - 2 puff INHALATION Q4H PRN PRN 05/29/20 Docusate Sodium [Dok] 100 mg PO BID 05/29/20 Doxycycline 100 mg PO BID #6 cap 07/03/20 Prednisone 4 tab PO DAILY #20 tab 07/03/20 Following Prescriptions Were Given to Patient: Doxycycline 100 mg PO BID #6 cap Transmission Status: Pending to [facility] Prednisone 4 tab PO DAILY #20 tab Transmission Status: Pending to [facility] Primary Care Physician: Dg Ge Chi, MD [Primary Care Provider] - Within 1 Week Disposition: Home Minutes spent on discharge:: 32 Medical Necessity - Tobacco Use Smoking Status: Current every day smoker Tobacco Use: Cigarettes Meaningful Use Info Meaningful Use Diagnoses (Choose all that apply): None applicable Inpatient E&M: 83431 Disch Hosp
[2020-07-03 12:59] LABS: Pathologist Review Reviewed
--- NOTE | 2020-07-03 14:18 | CASEMGMT ---
Social Work Note Pt doesn't need oxygen, pt is able to discharge back to [facility] today. PARESH placed a call to pt's guardian Nikki and updated her that pt will be discharged back to [facility] today. Nikki states [facility] is able to transport pt and provided number ([phone]). PARESH placed a call to pt's CM Cally and left message that pt will be discharged today. PARESH placed a call to pt's [facility] and spoke with Francine. Francine confirms [facility] is able to transport pt but it will be after 3:00pm. PARESH updated RN. Plan: Return to [facility] today. care home will be transporting pt after 3:00pm today Laura Melara MSW, SLIVER CUTTER
== END 2020-07-03 15:19 | disposition home or self-care (01) | DRG 140 ==
LOC: ED 20:33 → MS3 21:37
PROVIDERS: Admitting Provider Family Medicine; Emergency Provider Emergency Medicine; PCP Family Medicine Geriatric Medicine; Referring Provider Family Medicine
DX: J44.1 Chronic obstructive pulmonary disease with (acute) exacerbation (principal); I10 Essential (primary) hypertension; M19.90 Unspecified osteoarthritis, unspecified site; N32.81 Overactive bladder; K21.9 Gastro-esophageal reflux disease without esophagitis; I25.10 Atherosclerotic heart disease of native coronary artery without angina pectoris; E03.9 Hypothyroidism, unspecified; E78.5 Hyperlipidemia, unspecified; Z85.3 Personal history of malignant neoplasm of breast; E66.9 Obesity, unspecified; Z68.32 Body mass index [BMI] 32.0-32.9, adult; F17.210 Nicotine dependence, cigarettes, uncomplicated; F20.9 Schizophrenia, unspecified; F32.9 Major depressive disorder, single episode, unspecified; F41.9 Anxiety disorder, unspecified
CPT/HCPCS: 36415; 71045; 80048; 80053; 83605; 83735; 84484; 85025; 85379; 87040; 87070; 87205; 87635; 93005; 94640; 94667; 94668; 99285; C9803; J7030; A4216; J2405; U0003

== ENCOUNTER → 2020-07-23 10:19 | Outpatient (CLI) | payer MEDICAID, SELFPAY ==
[2020-07-01 22:02] VITALS: BMI 31.8
[2020-07-23 12:33] LABS: Absolute Lymphocyte Count 1.44 X10^3/uL (0.83-4.51); Absolute Neutrophil Count 3.8 X10^3/uL (2.0-7.7); Basophil# 0.04 X10^3/uL; Basophil% 0.7 % (0-1); Eosinophil# 0.17 X10^3/uL; Eosinophils% 2.8 % (0-5); Hemoglobin 13.8 g/dL (12.0-15.0); Lymphocyte # 1.44 X10^3/ul (4.0); Lymphocyte % 23.8 % (19-41); Mean Corp Hgb Conc 32.9 g/dL (32-36); Mean Corpuscular Hgb 30.5 pg (27.0-32.0); Mean Corpuscular Volume 92.9 fL (81-99); Monocyte# 0.57 X10^3/uL; Monocyte% 9.4 % (0-10); NRBC Flagged by Analyzer 0 % (0-5); Neutrophil # 3.81 X10^3/uL (2.7-7.7); Platelet Count 227 K/mm3 (150-450); RBC Distribution Width CV 12.9 % (11.6-14.6); Red Blood Count 4.52 M/mm3 (4.2-5.4); White Blood Count 6.1 K/mm3 (4.4-11.0)
[2020-07-23 13:14] LABS: ALB/GLOB Ratio 1.1 RATIO (0.9-2.4); AST(SGOT) 11 U/L (15-37); Alanine Aminotransfer ALT/SGPT 21 U/L (13-56); Albumin, Serum 3.2 g/dL (3.2-5.0); Alkaline Phosphatase 84 U/L (45-117); Anion Gap 6 (5-15); BUN 13 mg/dL (7-18); BUN/Creat Ratio 16.5 RATIO (10-20); Calcium,Total 8.9 mg/dL (8.5-10.1); Chloride 103 mmol/L (98-107); Creatinine, Serum 0.79 mg/dL (0.55-1.02); EST Glomerular Filtration Rate 78 mL/min (>60); Est Glom Filt Rate - Afr Amer 95 mL/min (>60); Glucose 92 mg/dL (74-106); Potassium 3.9 mmol/L (3.5-5.1); Protein, Total 6.2 g/dL (6.4-8.2); Sodium Level 135 mmol/L (136-145); Thyroid Stim Hormone (TSH) 2.78 uIU/mL (0.358-3.74)
[2020-07-25 08:24] LABS: Vitamin D,25 Hydroxy 33.5 ng/mL
== END ==
PROVIDERS: PCP Family Medicine Geriatric Medicine; Visit Provider Family Medicine Geriatric Medicine
DX: E55.9 Vitamin D deficiency, unspecified (principal); I10 Essential (primary) hypertension
CPT/HCPCS: 36415; 80053; 82306; 84443; 85025

== ENCOUNTER → 2020-08-23 16:16 | Outpatient (CLI) | payer MEDICAID, SELFPAY ==
[2020-08-17 13:42] VITALS: BMI 34.4
--- NOTE | 2020-08-23 16:18 | CT_ITS ---
STUDY: CT BRAIN WITHOUT CONTRAST REASON FOR EXAM: Female, 65 years old. Closed head injury RADIATION DOSAGE (If Supplied By Facility): CTDIvol = ( 44.99 ) mGy, DLP = ( 812.98 ) mGycm TECHNIQUE: Transaxial CT imaging of the brain was performed without administration of intravenous contrast material. Individualized dose optimization techniques were used for this CT. COMPARISON: 08/11/2019. FINDINGS: Normal soft tissue structures. Normal calvarium. There is mild cerebral atrophy with widening of the extra-axial spaces and ventricular dilatation. There are areas of decreased attenuation within the white matter tracts of the supratentorial brain, consistent with microvascular disease changes. There is no intracranial hemorrhage. There are no findings of an acute ischemic infarction. Focal low attenuation in the left basal ganglia consistent with chronic lacunar infarct. No change from the prior study. Normal visualized paranasal sinuses. CT/Brain/Head without Contrast IMPRESSION: 1. No acute findings. 2. Chronic left basal ganglia lacunar infarct. 3. Microvascular ischemic changes. Atrophy. Electronically Signed: Chanel Rodriguez MD at 17:02 EST Tel , Service support ,
== END ==
PROVIDERS: PCP Family Medicine Geriatric Medicine; Referring Provider Family Medicine Geriatric Medicine; Visit Provider Family Medicine Geriatric Medicine
DX: S09.90XA Unspecified injury of head, initial encounter (principal)
CPT/HCPCS: 70450

== ENCOUNTER 2020-09-10 09:36 | Emergency (ER) | payer MEDICAID, SELFPAY ==
[2020-08-17 13:42] VITALS: BMI 34.4
[2020-09-10 09:37] VITALS: BP 146/68; PULSE 60; RESP 20; TEMP 36.4; O2SAT 96; BMI 32.8
--- NOTE | 2020-09-10 09:54 | EKG12_ITS ---
Test Reason : Blood Pressure : / mmHG Vent. Rate : 057 BPM Atrial Rate : 057 BPM P-R Int : 180 ms QRS Dur : 074 ms QT Int : 480 ms P-R-T Axes : 046 -02 031 degrees QTc Int : 467 ms Sinus bradycardia Septal infarct (cited on or before 20-SEP-2018) Abnormal ECG Confirmed by NICOLE DIAZ, SHERITA ([id number]), film editor OTILIA KIRKLAND ([id number]) on 09/12/2020 10:44:16 AM Referred By: OMI Confirmed By:SHERITA RIVERA MD
[2020-09-10 10:27] VITALS: BP 149/84; BP 153/87; BP 171/87; PULSE 57; PULSE 58; PULSE 69
[2020-09-10 12:23] VITALS: BP 165/94; PULSE 59; RESP 16; O2SAT 97
[2020-09-10 12:29] LABS: Absolute Lymphocyte Count 1.03 X10^3/uL (0.83-4.51); Absolute Neutrophil Count 6.5 X10^3/uL (2.0-7.7); Basophil# 0.05 X10^3/uL; Basophil% 0.6 % (0-1); Eosinophil# 0.01 X10^3/uL; Eosinophils% 0.1 % (0-5); Hematocrit 41.8 % (37-47); Hemoglobin 13.9 g/dL (12.0-15.0); Lymphocyte # 1.03 X10^3/ul (4.0); Lymphocyte % 12.7 % (19-41); Mean Corp Hgb Conc 33.3 g/dL (32-36); Mean Corpuscular Hgb 30.8 pg (27.0-32.0); Mean Corpuscular Volume 92.5 fL (81-99); Mean Platelet Vol. 9.4 fl (6.2-12.0); Monocyte% 6.2 % (0-10); NRBC Flagged by Analyzer 0 % (0-5); Neutrophil # 6.51 X10^3/uL (2.7-7.7); Platelet Count 183 K/mm3 (150-450); RBC Distribution Width CV 12.7 % (11.6-14.6); RBC Distribution Width SD 43.2 fl (35.1-43.9); Red Blood Count 4.52 M/mm3 (4.2-5.4); White Blood Count 8.1 K/mm3 (4.4-11.0)
[2020-09-10 13:01] LABS: Anion Gap 7 (5-15); BUN 14 mg/dL (7-18); BUN/Creat Ratio 18.2 RATIO (10-20); Calcium,Total 8.7 mg/dL (8.5-10.1); Chloride 106 mmol/L (98-107); Creatinine, Serum 0.77 mg/dL (0.55-1.02); EST Glomerular Filtration Rate 80 mL/min (>60); Est Glom Filt Rate - Afr Amer 97 mL/min (>60); Estimated Creatinine Clearance 61.86 ml/min; Glucose 83 mg/dL (74-106); Potassium 3.6 mmol/L (3.5-5.1); Sodium Level 134 mmol/L (136-145)
--- NOTE | 2020-09-10 13:03 | ED.DCSUM_ITS ---
- ER Visit Summary Date of Service: 09/10/20 Chief Complaint: Lightheaded History of Present Illness: The patient is a [address] Ge. She is poor informant. Approximately proximate hour ago while sitting drinking daily she became lightheaded and nauseated. She had any chest pain, shortness of br eath, or palpitations. She is not diaphoretic with this. She reports she is had this previously, but not this bad. Physical Examination: Vitals: Stable. Afebrile. General: Well-nourished and well-developed. Head: Normocephalic atraumatic. Neck: Supple, no lymphadenopathy. No JVD. Nontender. Cardiovascular: Regular rate and rhythm. No murmurs. Respiratory: No respiratory distress. Clear to auscultation bilaterally. Abdominal: Soft, nontender, nondistended, normal bowel sounds. No guarding, rebound, or peritoneal signs. Back: Nontender. Extremities: Nontender, no edema. Skin: Normal color, no rash. Neurologic: Alert and oriented ?3. Cranial nerves II through XII are intact. Normal strength and sensation. Psych: Normal affect. Test Results: EKG is sinus bradycardia rate of 57 with Q waves in leads V1 and V2. This is unchanged from June this year. Troponin is negative. Chem-7 shows sodium 134. CBC shows stable neutrophils 80 lymphocytes 13. Emergency Department Course and Treatment: Patient had negative orthostatic vital signs. She is given a liter normal saline. She was given Zofran IV. She reports she feels well. Treatment Plan: Patient will be discharged with instructions to push fluids. Follow-up with primary care physician 1 to 2 days if not improving. Return to the emergency department for any worsening symptoms. Disposition: To home in improved and stable condition. Impression: 1. Near syncope, uncertain cause. This note was generated with [employer] software. It may contain incorrect words, spelling, and punctuation that were not noted in review of the chart prior to signing ED Disposition - Plan for ED Patient: Disposition: Home or Assisted Living Instructions: ED Near-Fainting Uncertain Cause Referrals: Dg Ge Chi, MD [Primary Care Provider] - 1-2 Days if not improving
[2020-09-10 13:11] VITALS: BP 149/84; PULSE 58; RESP 17; O2SAT 98
== END 2020-09-10 13:24 | disposition home or self-care (01) ==
PROVIDERS: Emergency Provider Emergency Medicine; PCP Family Medicine Geriatric Medicine
DX: R55 Syncope and collapse (principal); K21.9 Gastro-esophageal reflux disease without esophagitis; I10 Essential (primary) hypertension; Z87.891 Personal history of nicotine dependence
CPT/HCPCS: 80048; 84484; 85025; 93005; 99285; J7040; A4216

== ENCOUNTER → 2020-10-29 09:10 | Outpatient (CLI) | payer MEDICAID, SELFPAY ==
[2020-10-29 16:49] LABS: Absolute Lymphocyte Count 1.47 X10^3/uL (0.83-4.51); Absolute Neutrophil Count 4.5 X10^3/uL (2.0-7.7); Basophil# 0.04 X10^3/uL; Basophil% 0.6 % (0-1); Hematocrit 38.8 % (37-47); Lymphocyte # 1.47 X10^3/ul (4.0); Lymphocyte % 22.7 % (19-41); Mean Corp Hgb Conc 33.5 g/dL (32-36); Mean Corpuscular Hgb 29.9 pg (27.0-32.0); Mean Corpuscular Volume 89.2 fL (81-99); Mean Platelet Vol. 9.6 fl (6.2-12.0); Monocyte# 0.46 X10^3/uL; Monocyte% 7.1 % (0-10); NRBC Flagged by Analyzer 0 % (0-5); Neutrophil % 69.3 % (47-70); Platelet Count 259 K/mm3 (150-450); RBC Distribution Width SD 39.7 fl (35.1-43.9); Red Blood Count 4.35 M/mm3 (4.2-5.4); White Blood Count 6.5 K/mm3 (4.4-11.0)
[2020-10-29 17:09] LABS: ALB/GLOB Ratio 1.2 RATIO (0.9-2.4); AST(SGOT) 11 U/L (15-37); Alanine Aminotransfer ALT/SGPT 20 U/L (13-56); Albumin, Serum 3.4 g/dL (3.2-5.0); Alkaline Phosphatase 84 U/L (45-117); Anion Gap 10 (5-15); BUN 12 mg/dL (7-18); BUN/Creat Ratio 16.7 RATIO (10-20); Calcium,Total 8.7 mg/dL (8.5-10.1); Chloride 97 mmol/L (98-107); Creatinine, Serum 0.72 mg/dL (0.55-1.02); EST Glomerular Filtration Rate 87 mL/min (>60); Est Glom Filt Rate - Afr Amer 105 mL/min (>60); Globulin 2.9 g/dL (2.2-4.2); Glucose 123 mg/dL (74-106); Potassium 3.2 mmol/L (3.5-5.1); Protein, Total 6.3 g/dL (6.4-8.2); Sodium Level 130 mmol/L (136-145); Thyroid Stim Hormone (TSH) 2.66 uIU/mL (0.358-3.74)
[2020-10-29 17:10] LABS: Vitamin D,25 Hydroxy 26.8 ng/mL
== END ==
PROVIDERS: PCP Family Medicine Geriatric Medicine; Visit Provider Family Medicine Geriatric Medicine
DX: E55.9 Vitamin D deficiency, unspecified (principal); I10 Essential (primary) hypertension
CPT/HCPCS: 36415; 80053; 82306; 84443; 85025

== ENCOUNTER → 2020-11-27 15:39 | Outpatient (CLI) | payer MEDICAID, SELFPAY ==
--- NOTE | 2020-11-27 15:48 | RAD_ITS ---
STUDY: X-RAY - LUMBAR SPINE REASON FOR EXAM: Female, 65 years old. LUMBAR DISC LESION; FELL A COUPLE MONTHS AGO TECHNIQUE: 3 view(s) of the lumbar spine were obtained. COMPARISON: Comparison is made with prior study dated 08/17/2020. FINDINGS: Normal lumbar lordosis. There is no substantial scoliosis. There is a normal alignment of the vertebrae. Mild anterior spondylosis at the L2-L3, L3-L4 and L4-L5 levels. Disc space narrowing at the L5-S1 level. Large amount of fecal material is seen in the colon. RAD/Lumbar Spine 2 or 3 Views IMPRESSION: Degenerative changes of the spine, as detailed above. Electronically Signed: Judd Franklin MD at 15:57 EST , Service support ,
== END ==
PROVIDERS: PCP Family Medicine Geriatric Medicine; Referring Provider Family Medicine Geriatric Medicine; Visit Provider Family Medicine Geriatric Medicine
DX: M51.86 Other intervertebral disc disorders, lumbar region (principal)
CPT/HCPCS: 72100; A4216

== ENCOUNTER → 2021-01-10 13:08 | Outpatient (CLI) | payer MEDICAID, SELFPAY ==
[2020-12-13 07:23] VITALS: BMI 33.5
--- NOTE | 2021-01-11 10:19 | PFT ---
INTRODUCTION: The patient is a 65-year-old female that presents for pulmonary function studies secondary to a diagnosis of dyspnea. Respiratory therapy reported that the patient had difficulty fully exhaling during spirometry. The patient had difficulty following instructions for testing with spirometry and diffusing capacity. Bronchodilators were used during testing. INTERPRETATION: Forced expiration spirometry demonstrates the presence of a moderately severe large airways obstructive ventilatory defect. There was a significant response to aerosolized bronchodilators noted. Spirograms are of poor quality and terminate prior to 6 seconds, likely underestimating FVC. Body plus moderately was performed and revealed an elevated TLC and RV, indicative of underlying hyperinflation and air trapping. Diffusing capacity by single breath CO is reduced to 61% of predicted. IMPRESSION: Partially reversible moderately severe large airways obstructive ventilatory defect with associated hyperinflation, air trapping and symmetric reduction in diffusing capacity.
== END ==
PROVIDERS: PCP Family Medicine Geriatric Medicine; Referring Provider Internal Medicine Critical Care Medicine; Visit Provider Internal Medicine Critical Care Medicine
DX: R06.00 Dyspnea, unspecified (principal)
CPT/HCPCS: 94060; 94726; 94729

== ENCOUNTER → 2021-01-11 11:55 | Outpatient (CLI) | payer MEDICAID, SELFPAY ==
[2020-12-13 07:23] VITALS: BMI 33.5
[2021-01-11 12:00] VITALS: PULSE 64; PULSE 67; PULSE 78; PULSE 79; PULSE 80; O2SAT 95; O2SAT 96; O2SAT 97; O2SAT 98
--- NOTE | 2021-01-12 07:26 | PCM.PSN.6M ---
PSN 6 Minute Walk Test - 6 Minute Walk Test 6 Minute Walk Test: 6 Minute Walk Test PSN:6-Minute Walk Test Start: 01/11/21 12:22 Freq: Status: Active Protocol: [id number] Document 01/11/21 12:00 (Rec: 01/11/21 12:24 [id number]) 6 Minute Walk Test Date Performed 01/11/21 Time Performed 12:00 Height 5 ft 4 in Weight: 183 lb Weight in Pounds 183.[address]: Manuel Cancino FIO2 (% Oxygen) 21 Assistive device used: None Pre-test Oxygen Delivery Method Room Air Pulse Ox (%) 96 Pulse Rate (60-100 beats/min) 64 Dyspnea Kenzie Scale (0-10) 0 Exertion Kenzie Scale (6-20) 6 1st minute Oxygen Delivery Method Room Air Pulse Ox (%) 97 Pulse Rate (60-100 beats/min) 78 2nd minute Oxygen Delivery Method Room Air Pulse Ox (%) 95 Pulse Rate (60-100 beats/min) 78 3rd minute Oxygen Delivery Method Room Air Pulse Ox (%) 96 Pulse Rate (60-100 beats/min) 79 4th minute Oxygen Delivery Method Room Air Pulse Ox (%) 97 Pulse Rate (60-100 beats/min) 80 5th minute Oxygen Delivery Method Room Air Pulse Ox (%) 97 Pulse Rate (60-100 beats/min) 79 6th minute Oxygen Delivery Method Room Air Pulse Ox (%) 97 Pulse Rate (60-100 beats/min) 79 Post-test Oxygen Delivery Method Room Air Pulse Ox (%) 98 Pulse Rate (60-100 beats/min) 67 Dyspnea Kenzie Scale (0-10) 5 Exertion Kenzie Scale (6-20) 2 Full Laps Walked 12 Partial Lap, Number of Tiles Walked 48 Total Distance Walked (ft) 756 - Interpretation Interpretation: The patient ambulated 756 feet over the course of 6 minutes beginning on room air without assistive devices or breaks. Pretesting oxygen saturation was noted to be 96% on room air. With ambulation, the bonifacio oxygen saturation was 95%. There was no significant exertional oxygen desaturation. - Recommendations Recommendations: There is no indication for the use of supplemental oxygen at this time.
== END ==
PROVIDERS: PCP Family Medicine Geriatric Medicine; Referring Provider Internal Medicine Critical Care Medicine; Visit Provider Internal Medicine Critical Care Medicine
DX: R06.00 Dyspnea, unspecified (principal)
CPT/HCPCS: 94618

== ENCOUNTER 2021-01-22 09:48 | Emergency (ER) | payer MEDICAID, SELFPAY ==
[2020-12-13 07:23] VITALS: BMI 33.5
[2021-01-22 09:49] VITALS: BP 189/85; PULSE 59; RESP 18; TEMP 36.6; O2SAT 98; BMI 29.2
--- NOTE | 2021-01-22 10:12 | ED.VISSUMM ---
- ER Visit Summary Date of Service: 01/22/21 Chief Complaint: Back pain History of Present Illness: The patient is a 65 F who presents with back pain that began today. Patient states she walked to [employer] and felt pain in her back. Patient describes the pain as sharp. Patient states pain is over the thoracic and lumbar areas. Patient states pain does radiate to both lower extremities. Patient denies any paresthesias or weakness. Patient denies any radiation to the abdomen. Patient denies any bowel or bladder changes. Patient denies any saddle anesthesia. Physical Examination: Vital signs are stable. Patient is afebrile. Patient is in no acute distress. Musculoskeletal exam reveals tenderness over the thoracic and lumbar paraspinal muscles. There is no midline tenderness. There is no bony crepitance or step-off. Range of motion was slightly limited in all motions of the thoracic and lumbar spine secondary to pain. Straight leg raises were negative bilaterally. Strength is 5/5 bilaterally in the lower extremities. Deep tendon reflexes were 2/4 bilaterally in the lower extremities. There are no sensory deficits noted. Patient ambulated without difficulty. Emergency Department Course and Treatment: Patient was given a dose of Naprosyn here. Patient was instructed to take Tylenol or Motrin as needed for pain. Patient was instructed to follow-up with her primary care physician in 5 to 7 days. Patient understood and was agreeable with the plan. All questions were answered. Disposition: Discharge home Impression: 1. Lumbosacral strain 2. Acute thoracic strain This note was generated with sevenload dictation software. It may contain incorrect words, spelling, and punctuation that were not noted in review of the chart prior to signing ED Disposition - Plan for ED Patient: Disposition: Home or Assisted Living Diagnosis: Acute thoracic myofascial strain, Lumbosacral strain Instructions: ED Back Sprain/Strain Referrals: Dg Ge Chi, MD [Primary Care Provider] - 5-7 Days
[2021-01-22] MEDS: Naproxen 250 MG Tablet 500 MG PO (10:27)
== END 2021-01-22 10:43 | disposition home or self-care (01) ==
LOC: ED 10:33
PROVIDERS: Emergency Provider Emergency Medicine; PCP Family Medicine Geriatric Medicine
DX: S39.012A Strain of muscle, fascia and tendon of lower back, initial encounter (principal); S29.012A Strain of muscle and tendon of back wall of thorax, initial encounter; I25.10 Atherosclerotic heart disease of native coronary artery without angina pectoris; K21.9 Gastro-esophageal reflux disease without esophagitis; I10 Essential (primary) hypertension; X58.XXXA Exposure to other specified factors, initial encounter; Y93.01 Activity, walking, marching and hiking; Z87.891 Personal history of nicotine dependence
CPT/HCPCS: 99284

== ENCOUNTER → 2021-01-31 14:04 | Outpatient (CLI) | payer MEDICAID, SELFPAY ==
[2021-01-22 09:49] VITALS: BMI 29.2
[2021-01-31 15:48] LABS: Absolute Lymphocyte Count 1.56 X10^3/uL (0.83-4.51); Absolute Neutrophil Count 4.8 X10^3/uL (2.0-7.7); Basophil# 0.06 X10^3/uL; Basophil% 0.8 % (0-1); Eosinophil# 0.17 X10^3/uL; Eosinophils% 2.4 % (0-5); Hematocrit 39.5 % (37-47); Hemoglobin 12.9 g/dL (12.0-15.0); Lymphocyte # 1.56 X10^3/ul (0.83-4.51); Lymphocyte % 21.9 % (19-41); Mean Corp Hgb Conc 32.7 g/dL (32-36); Mean Corpuscular Hgb 30.6 pg (27.0-32.0); Mean Corpuscular Volume 93.8 fL (81-99); Mean Platelet Vol. 9.5 fl (6.2-12.0); Monocyte# 0.55 X10^3/uL; Monocyte% 7.7 % (0-10); NRBC Flagged by Analyzer 0 % (0-5); Neutrophil # 4.75 X10^3/uL (2.7-7.7); Neutrophil % 66.8 % (47-70); Platelet Count 272 K/mm3 (150-450); RBC Distribution Width CV 12.4 % (11.6-14.6); RBC Distribution Width SD 42.7 fl (35.1-43.9); Red Blood Count 4.21 M/mm3 (4.2-5.4); White Blood Count 7.1 K/mm3 (4.4-11.0)
[2021-01-31 16:00] LABS: Vitamin D,25 Hydroxy 25.2 ng/mL
[2021-01-31 16:15] LABS: ALB/GLOB Ratio 1.2 RATIO (0.9-2.4); AST(SGOT) 15 U/L (15-37); Alanine Aminotransfer ALT/SGPT 21 U/L (13-56); Albumin, Serum 3.4 g/dL (3.2-5.0); Alkaline Phosphatase 103 U/L (45-117); Anion Gap 6 (5-15); BUN 13 mg/dL (7-18); BUN/Creat Ratio 15.9 RATIO (10-20); Calcium,Total 8.6 mg/dL (8.5-10.1); Chloride 97 mmol/L (98-107); Creatinine, Serum 0.82 mg/dL (0.55-1.02); EST Glomerular Filtration Rate 75 mL/min (>60); Est Glom Filt Rate - Afr Amer 91 mL/min (>60); Globulin 2.9 g/dL (2.2-4.2); Glucose 143 mg/dL (74-106); Potassium 4.1 mmol/L (3.5-5.1); Protein, Total 6.3 g/dL (6.4-8.2); Sodium Level 130 mmol/L (136-145); Thyroid Stim Hormone (TSH) 4.42 uIU/mL (0.358-3.74)
== END ==
PROVIDERS: PCP Family Medicine Geriatric Medicine; Visit Provider Family Medicine Geriatric Medicine
DX: E55.9 Vitamin D deficiency, unspecified (principal); I10 Essential (primary) hypertension
CPT/HCPCS: 36415; 80053; 82306; 84443; 85025

== ENCOUNTER → 2021-02-18 09:37 | Outpatient (CLI) | payer MEDICAID, SELFPAY ==
[2021-02-18 07:50] VITALS: BMI 33.9
== END ==
PROVIDERS: PCP Family Medicine Geriatric Medicine; Visit Provider Nurse Practitioner Acute Care
DX: R50.9 Fever, unspecified (principal)
CPT/HCPCS: 87635; U0002

== ENCOUNTER → 2021-03-27 12:13 | Outpatient (CLI) | payer MEDICAID, SELFPAY ==
[2021-03-25 12:24] VITALS: BMI 33.7
[2021-03-27 12:27] LABS: Absolute Lymphocyte Count 1.27 X10^3/uL (0.83-4.51); Absolute Neutrophil Count 4.2 X10^3/uL (2.0-7.7); Basophil# 0.05 X10^3/uL; Basophil% 0.8 % (0-1); Eosinophil# 0.13 X10^3/uL; Eosinophils% 2.1 % (0-5); Hematocrit 38.5 % (37-47); Hemoglobin 13.1 g/dL (12.0-15.0); Lymphocyte # 1.27 X10^3/ul (0.83-4.51); Lymphocyte % 20.5 % (19-41); Mean Corpuscular Hgb 30.8 pg (27.0-32.0); Mean Corpuscular Volume 90.6 fL (81-99); Mean Platelet Vol. 9.1 fl (6.2-12.0); Monocyte# 0.56 X10^3/uL; NRBC Flagged by Analyzer 0 % (0-5); Neutrophil # 4.16 X10^3/uL (2.7-7.7); Neutrophil % 67.3 % (47-70); Platelet Count 263 K/mm3 (150-450); RBC Distribution Width CV 12.1 % (11.6-14.6); RBC Distribution Width SD 39.8 fl (35.1-43.9); Red Blood Count 4.25 M/mm3 (4.2-5.4); White Blood Count 6.2 K/mm3 (4.4-11.0)
[2021-03-27 12:53] LABS: Anion Gap 8 (5-15); BUN 9 mg/dL (7-18); Calcium,Total 9.1 mg/dL (8.5-10.1); Chloride 99 mmol/L (98-107); Creatinine, Serum 0.69 mg/dL (0.55-1.02); EST Glomerular Filtration Rate 91 mL/min (>60); Est Glom Filt Rate - Afr Amer 110 mL/min (>60); Glucose 96 mg/dL (74-106); Potassium 3.9 mmol/L (3.5-5.1); Sodium Level 132 mmol/L (136-145)
== END ==
PROVIDERS: PCP Family Medicine Geriatric Medicine; Visit Provider Family Medicine Geriatric Medicine
DX: R03.0 Elevated blood-pressure reading, without diagnosis of hypertension (principal)
CPT/HCPCS: 36415; 80048; 85025

== ENCOUNTER → 2021-04-04 16:24 | Outpatient (CLI) | payer MEDICAID, SELFPAY ==
[2021-02-19 11:07] VITALS: BMI 32.8
[2021-04-04 12:23] VITALS: BMI 33.7
[2021-04-04 17:52] LABS: Thyroid Stim Hormone (TSH) 0.81 uIU/mL (0.358-3.74)
== END ==
PROVIDERS: PCP Family Medicine Geriatric Medicine; Visit Provider Family Medicine Geriatric Medicine
DX: E03.9 Hypothyroidism, unspecified (principal)
CPT/HCPCS: 36415; 84443

== ENCOUNTER 2021-04-08 18:02 | Emergency (ER) | payer MEDICAID, SELFPAY ==
[2021-04-04 12:23] VITALS: BMI 33.7
[2021-04-08 18:10] VITALS: BP 160/89; PULSE 85; RESP 18; TEMP 36.1; O2SAT 99; BMI 32.9
--- NOTE | 2021-04-08 20:43 | CT_ITS ---
EXAMINATION : Head CT w/out contrast HISTORY : headache, HTN COMPARISON : 08/23/2020. TECHNIQUE : Multiple contiguous axial images were obtained from the skull base to the vertex without intravenous contrast. A radiation dose optimization technique was used for this scan. FINDINGS : There is no evidence for acute intracranial hemorrhage, mass effect, or midline shift. There is no extra-axial fluid collection. There are periventricular white matter changes consistent with chronic microvascular ischemic disease. There is sulcal widening and ventricular enlargement consistent with cerebral atrophy. There is normal cruz-white differentiation, without CT evidence of acute ischemia or infarct. The skull base and calvarium are unremarkable. The orbits are unremarkable. The paranasal sinuses are clear. The mastoid air cells are well-aerated. The soft tissues are unremarkable. CT/Brain/Head without Contrast IMPRESSION: No acute intracranial abnormality. Chronic involutional and ischemic changes of the brain. Electronically Signed: Mamadou Hernández MD at 22:06 EDT Tel , Service support ,
[2021-04-08 20:44] VITALS: BP 125/71; PULSE 78; RESP 20; O2SAT 95
--- NOTE | 2021-04-08 20:44 | EKG12_ITS ---
Test Reason : DYSRHYTHMIA Blood Pressure : / mmHG Vent. Rate : 073 BPM Atrial Rate : 073 BPM P-R Int : 178 ms QRS Dur : 076 ms QT Int : 440 ms P-R-T Axes : 054 -18 044 degrees QTc Int : 484 ms Normal sinus rhythm Septal infarct , cannot be excluded Abnormal ECG Confirmed by NIMCO DIAZ, MADELEINE ([id number]), telegraph editor JACOB BETANCOURT ([id number]) on 04/10/2021 9:27:01 AM Referred By: EMILY Confirmed By:MADELEINE RINALDI MD
--- NOTE | 2021-04-08 20:45 | EDS_ITS ---
HPI History of Present Illness Chief Complaint: General Illness Informant: patient Narrative Narrative: Patient presents secondary to headache and elevated blood pressure today. She does not know what her blood pressure reading was. She states she previously been on blood pressure medication but it was stopped because it was under good control. She does not know how long ago it was stopped. She states she feels a mild headache now but it does seem to be improved. She denies chest pain. [facility] Medical History (Updated 04/08/21 @ 23:[address] Zee Augustin MD) Acute bronchitis Allergic rhinitis Anxiety Arthritis Back pain Back problem Breast cancer CAD (coronary artery disease) Chest pain Depression Difficulty balancing when standing GERD (gastroesophageal reflux disease) hospitalization for sob HTN (hypertension) HX: breast cancer Hyperlipemia Hypothyroidism Incontinence Knee pain [facility] in pen[facility] Nicotine abuse OAB (overactive bladder) Schizophrenia SOB (shortness of breath) unexplained bruises Home Medications tamoxifen 20 mg PO DAILY 07/23/17 [History Last Taken 07/01/20] paliperidone 9 mg PO QHS 08/21/17 [History Last Taken 06/30/20] solifenacin 10 mg PO QHS 08/21/17 [History Last Taken 06/30/20] calcium carbonate-vitamin D3 1 tablet PO DAILY 09/20/18 [History Last Taken 07/01/20] metoprolol tartrate 25 mg PO BID 09/20/18 [History Last Taken 07/01/20] lisinopril 20 mg-hydrochlorothiazide 12.5 mg tablet 1 tablet PO DAILY 05/15/20 [History Last Taken 07/01/20] mirabegron 50 mg tablet,extended release 24 hr 50 mg PO DAILY 05/15/20 [History Last Taken 07/01/20] multivitamin 1 tablet PO DAILY 05/15/20 [History Last Taken 07/01/20] omeprazole 40 mg capsule,delayed release 40 mg PO QHS 05/15/20 [History Last Taken 06/30/20] docusate sodium 100 mg PO BID 05/29/20 [History Last Taken 07/01/20] ibuprofen 400 mg tablet 400 mg PO Q8H PRN #20 tablet 08/17/20 [Rx Last Taken Unknown] albuterol sulfate 90 mcg/actuation aerosol inhaler 2 puff INHALATION Q6H PRN #18 gm 03/25/21 [Rx Last Taken Unknown] levothyroxine 137 mcg tablet 137 mcg PO DAILY tab 04/04/21 [History Last Taken Unknown] valsartan 320 mg-hydrochlorothiazide 25 mg tablet 1 tab PO DAILY tab 04/04/21 [History Last Taken Unknown] Allergy/AdvReac Type Severity Reaction Status Date / Time milk AdvReac Diarrhea Verified 04/08/21 18:12 Family History Sister Heart disease CVA (cerebral vascular accident) Mother Cancer Father Cancer Surgical History History of History of mastectomy Hx of bladder repair surgery Social History Smoking Status: Never smoker alcohol intake: former substance use type: does not use caffeine: Yes what type of physical activity do you participate in: none frequency: does not exercise ROS ROS ED Constitutional Constitutional ED: Denies chills or fever(s) Eyes Eyes: Denies change in vision ENT ENT ED: Denies sore throat Cardiovascular Cardiovascular: Denies chest pain Respiratory/Chest Respiratory/Chest: Denies cough or dyspnea Gastrointestinal Gastrointestinal: Denies abdominal pain, diarrhea, nausea or vomiting Genitourinary Genitourinary ED: Denies dysuria Musculoskeletal Musculoskeletal: Denies back pain Integumentary Denies rash Neurologic Neurologic: Reports headache(s); Denies weakness Psychiatric Psychiatric: Denies anxiety or depression Endocrine Endocrinology: Denies polydipsia or polyuria Allergic/Immunologic Allergic/Immunologic ED: Denies urticaria EXAM Physical Exam Const Vital Signs: 04/08/21 18:10 04/08/21 20:44 04/08/21 22:00 Temperature 97 F L Temperature Source Oral Pulse Rate 85 78 79 Respiratory Rate 18 20 H 16 Respiratory Effort Normal Non-Labored Blood Pressure 160/89 H 125/71 H 165/74 H Blood Pressure Mean 112 89 104 Pulse Ox 99 95 96 Oxygen Delivery Method Room Air Room Air Room Air Positive well nourished and well developed General Appearance ED: well developed HEENT Reports normocephalic and head/scalp atraumatic Eyes PERRL and EOMs intact bilaterally Neck supple Chest Wall inspection of chest normal and palpation of chest normal Resp normal respiratory effort and clear to auscultation bilaterally Cardio regular rate and regular rhythm GI normal to inspection, nondistended, normoactive bowel sounds Palpation: soft Extremity normal to inspection Neuro oriented x3 and no sensory deficits noted Sensorium / Orientation: alert Motor Exam: strength 5/5 throughout Psych mental status grossly normal Skin no rashes or lesions noted MDM MDM MDM Narrative Medical decision making narrative: At the time of my evaluation patient's blood pressure is 127/69. CT scan of the head is obtained along with lab work and EKG. Following head CT patient is given IV Toradol to help with headache. Lab Data Attestation: I reviewed the patient's lab results. Labs: Laboratory Results - last 24 hr 04/08/21 04/08/21 21:10 21:10 WBC 7.5 RBC 4.55 Hgb 13.9 Hct 40.6 MCV 89.2 MCH 30.5 MCHC 34.2 RDW Std Deviation 37.9 RDW Coeff of Jennifer 11.6 Plt Count 255 MPV 8.9 Immature Gran % (Auto) 0.400 Neut % (Auto) 61.7 Lymph % (Auto) 27.6 [place] % (Auto) 9.2 Eos % (Auto) 0.3 Baso % (Auto) 0.8 Absolute Neuts (auto) 4.6 Absolute Lymphs (auto) 2.07 Nucleated RBC % 0 Sodium 128 L Potassium 3.2 L Chloride 94 L Carbon Dioxide 24.0 Anion Gap 10 BUN 9 Creatinine 0.62 Estim Creat Clear Calc 72.50 Est GFR (MDRD) Af Amer 125 Est GFR (MDRD) Non-Af 103 BUN/Creatinine Ratio 14.6 Glucose 100 Calcium 9.1 Radiography Diagnostic Testing: Radiology Impression Brain CT 04/08/21 20:43 IMPRESSION: No acute intracranial abnormality. Chronic involutional and ischemic changes of the brain. Electronically Signed: Mamadou Hernández MD at 22:06 EDT Tel , Service support , EKG Initial EKG: Attestation: I personally reviewed and interpreted this EKG as follows: Interpretation: Sinus Rhythm (Sinus at 73 with no acute ischemia.) Treatment and Re-Evaluation Comments:: Lab work is reviewed. Patient sodium is low at 128. Last 2 values in the computer for comparison are sodium 130. Potassium is slightly low at 3.2. She was given oral potassium and a liter of IV fluids. On repeat evaluation patient does state that she feels improved. There is no one from the penitentiary here with her. She will be discharged back to the penitentiary to continue her current medication regimen. Discharge Plan Triage Chief Complaint: General Illness Other Complaint: Dizziness ED Provider: Zee Augustin Dx/Rx/DC Orders Clinical Impression: Cephalgia Instructions: ED, Migraine (Classical) Prescriptions: No Action multivitamin Tablet 1 tablet PO DAILY RF: 0 omeprazole 40 mg capsule,delayed release(DR/EC) 40 mg PO QHS RF: 0 Myrbetriq 50 mg tablet extended release 24 hr 50 mg PO DAILY RF: 0 lisinopril-hydrochlorothiazide 20-12.5 mg tablet 1 tablet PO DAILY RF: 0 ibuprofen 400 mg tablet 400 mg PO Q8H PRN (Reason: pain) Qty: 20 RF: 0 albuterol sulfate 90 mcg/actuation HFA aerosol inhaler 2 puff INHALATION Q6H PRN (Reason: shortness of breath or wheezing) Qty: 18 RF: 1 valsartan-hydrochlorothiazide 320-25 mg tablet 1 tab PO DAILY RF: 0 levothyroxine 137 mcg tablet 137 mcg PO DAILY RF: 0 tamoxifen 20 MG tablet 20 mg PO DAILY RF: 0 solifenacin 10 MG tablet 10 mg PO QHS RF: 0 paliperidone 9 MG tablet extended release 24hr 9 mg PO QHS RF: 0 metoprolol tartrate 25 tablet 25 mg PO BID RF: 0 calcium carbonate-vitamin D3 1 EACH tablet 1 tablet PO DAILY RF: 0 docusate sodium 100 MG capsule 100 mg PO BID RF: 0 Primary Care Provider: Dg Ge Chi Referrals: Dg Ge Chi, MD [Primary Care Provider] - 3-5 Days if not improving Disposition Disposition: Home, self care
[2021-04-08 21:17] LABS: Absolute Lymphocyte Count 2.07 X10^3/uL (0.83-4.51); Absolute Neutrophil Count 4.6 X10^3/uL (2.0-7.7); Basophil# 0.06 X10^3/uL; Basophil% 0.8 % (0-1); Eosinophil# 0.02 X10^3/uL; Eosinophils% 0.3 % (0-5); Hematocrit 40.6 % (37-47); Hemoglobin 13.9 g/dL (12.0-15.0); Lymphocyte # 2.07 X10^3/ul (0.83-4.51); Lymphocyte % 27.6 % (19-41); Mean Corp Hgb Conc 34.2 g/dL (32-36); Mean Corpuscular Hgb 30.5 pg (27.0-32.0); Mean Corpuscular Volume 89.2 fL (81-99); Mean Platelet Vol. 8.9 fl (6.2-12.0); Monocyte# 0.69 X10^3/uL; Monocyte% 9.2 % (0-10); NRBC Flagged by Analyzer 0 % (0-5); Neutrophil # 4.62 X10^3/uL (2.7-7.7); Neutrophil % 61.7 % (47-70); Platelet Count 255 K/mm3 (150-450); RBC Distribution Width CV 11.6 % (11.6-14.6); RBC Distribution Width SD 37.9 fl (35.1-43.9); Red Blood Count 4.55 M/mm3 (4.2-5.4); White Blood Count 7.5 K/mm3 (4.4-11.0)
[2021-04-08 21:31] LABS: Anion Gap 10 (5-15); BUN 9 mg/dL (7-18); BUN/Creat Ratio 14.6 RATIO (10-20); Calcium,Total 9.1 mg/dL (8.5-10.1); Chloride 94 mmol/L (98-107); Creatinine, Serum 0.62 mg/dL (0.55-1.02); EST Glomerular Filtration Rate 103 mL/min (>60); Est Glom Filt Rate - Afr Amer 125 mL/min (>60); Glucose 100 mg/dL (74-106); Potassium 3.2 mmol/L (3.5-5.1); Sodium Level 128 mmol/L (136-145)
[2021-04-08 22:00] VITALS: BP 165/74; PULSE 79; RESP 16; O2SAT 96
[2021-04-08] MEDS: Ketorolac 15 MG/ML Vial IV (22:11)
[2021-04-08] MEDS: Potassium Chloride Oral Tablet 20 MEQ 40 MEQ PO (22:11)
[2021-04-08] MEDS: 0.9% Normal Saline 1,000 ML 999 ML IV (22:11)
[2021-04-08 23:18] VITALS: BP 157/73; PULSE 75; RESP 18; O2SAT 98
--- NOTE | 2021-04-08 23:20 | ED.RN ---
UPDATED STAFF MEMBER AT [facility] ON PT'S DISPO. CAB CALLED TO [employer] PT.
== END 2021-04-09 00:39 | disposition home or self-care (01) ==
PROVIDERS: Emergency Provider Emergency Medicine; PCP Family Medicine Geriatric Medicine
DX: R51.9 Headache, unspecified (principal); I10 Essential (primary) hypertension; I25.10 Atherosclerotic heart disease of native coronary artery without angina pectoris; E03.9 Hypothyroidism, unspecified; K21.9 Gastro-esophageal reflux disease without esophagitis; Z85.3 Personal history of malignant neoplasm of breast; Z79.899 Other long term (current) drug therapy
CPT/HCPCS: 70450; 80048; 85025; 93005; 96374; 99284; J7030; A4216

== ENCOUNTER → 2021-04-10 09:17 | Outpatient (CLI) | payer MEDICAID, SELFPAY ==
[2021-04-08 18:10] VITALS: BMI 32.9
[2021-04-10 12:11] LABS: Anion Gap 8 (5-15); BUN 9 mg/dL (7-18); BUN/Creat Ratio 14.1 RATIO (10-20); Calcium,Total 8.9 mg/dL (8.5-10.1); Chloride 100 mmol/L (98-107); Creatinine, Serum 0.64 mg/dL (0.55-1.02); EST Glomerular Filtration Rate 99 mL/min (>60); Est Glom Filt Rate - Afr Amer 120 mL/min (>60); Glucose 89 mg/dL (74-106); Potassium 3.7 mmol/L (3.5-5.1); Sodium Level 131 mmol/L (136-145)
[2021-04-10 12:18] LABS: Osmolality, Serum 275 mOsm/KG (280-301)
[2021-04-10 12:23] LABS: Osmolality, Urine 165 mOsm/KG
[2021-04-10 12:27] LABS: Urine Sodium 48 mmol/L (Not Establ.)
== END ==
PROVIDERS: PCP Family Medicine Geriatric Medicine; Visit Provider Family Medicine Geriatric Medicine
DX: I10 Essential (primary) hypertension (principal)
CPT/HCPCS: 36415; 80048; 83930; 83935; 84300

== ENCOUNTER → 2021-04-12 12:58 | Outpatient (CLI) | payer MEDICAID, SELFPAY ==
[2021-04-04 12:23] VITALS: BMI 33.7
[2021-04-08 18:10] VITALS: BMI 32.9
--- NOTE | 2021-04-12 13:02 | CT_ITS ---
STUDY: LOW DOSE CT LUNG CANCER SCREENING REASON FOR EXAM: Female, 66 years old. smoker and gt; 40 pack years quit 10/19/2020 RADIATION DOSAGE (If Supplied By Facility): CTDIvol = ( 4.02 ) mGy, DLP = ( 127.88 ) mGycm TECHNIQUE: No contrast was administered. Low dose technique was utilized (average mAS-38 and kVp 120). 1.25 mm axial source images with a slice interval of 1.25-mm were reconstructed in lung windows. 2.5 mm axial source images with a slice interval of 2.5-mm were reconstructed in lung windows. 5.0 mm axial source images with a slice interval of 5.0-mm were reconstructed in soft tissue windows. Nodule measured using lung windows on PACS and/or independent workstation with automated measurement of minimum and maximum diameter. Nodule measurement reported as average diameter rounded to the nearest whole number. Growth is defined as an increase ins size of greater than 1.5 mm. COMPARISON: May 01 2020 Findings: Lungs are moderately emphysematous with left lung scarring, possibly post radiation fibrosis due to breast treatment. There is left mastectomy. There are no pulmonary nodules. Airways are patent. Pleural surfaces are intact. Mediastinal contents are normal. Osseous structures are intact. CT/Low Dose CT Lung Screening IMPRESSION: 1. Lung RADS category 1. No nodules. 2. Moderate emphysema. 3. Left mastectomy. IMPORTANT NOTES FOR USE: ACR Lung-RADS Version 1.1 Assessment Categories Release Date: 2018 Category: Coded 0-4 bases on nodule(s) with highest degree of suspicion. Negative screen is defined as categories 1 and 2; a positive screen is defined as categories 3 and 4. Category 3 and 4A nodules that are unchanged on interval CT should be coded as category 2, and individuals returned to screening in 12 months. Category 4X: Category 3 or 4 nodules with additional imaging findings that increase the suspicion of lung cancer, such as spiculation, GGN that doubles in size in 1 year, enlarged lymph notes, etc. Category Modifiers: S (significant finding unrelated to lung cancer) Electronically Signed: Jaret Magaña MD at 20:26 EDT Tel , Service support ,
== END ==
PROVIDERS: PCP Family Medicine Geriatric Medicine; Referring Provider Nurse Practitioner Acute Care; Visit Provider Nurse Practitioner Acute Care
DX: F17.210 Nicotine dependence, cigarettes, uncomplicated (principal)
CPT/HCPCS: 71271

== ENCOUNTER → 2021-04-18 15:16 | Outpatient (CLI) | payer MEDICAID, SELFPAY ==
[2021-04-08 18:10] VITALS: BMI 32.9
[2021-04-18 16:55] LABS: Anion Gap 12 (5-15); BUN 12 mg/dL (7-18); BUN/Creat Ratio 13.8 RATIO (10-20); Calcium,Total 8.6 mg/dL (8.5-10.1); Chloride 103 mmol/L (98-107); Creatinine, Serum 0.87 mg/dL (0.55-1.02); EST Glomerular Filtration Rate 70 mL/min (>60); Est Glom Filt Rate - Afr Amer 84 mL/min (>60); Glucose 141 mg/dL (74-106); Potassium 3.2 mmol/L (3.5-5.1); Sodium Level 139 mmol/L (136-145)
== END ==
PROVIDERS: PCP Family Medicine Geriatric Medicine; Visit Provider Family Medicine Geriatric Medicine
DX: E87.1 Hypo-osmolality and hyponatremia (principal)
CPT/HCPCS: 36415; 80048

== ENCOUNTER → 2021-04-29 09:46 | Outpatient (CLI) | payer MEDICAID, SELFPAY ==
[2021-04-08 18:10] VITALS: BMI 32.9
[2021-04-29 12:15] LABS: Absolute Lymphocyte Count 1.28 X10^3/uL (0.83-4.51); Absolute Neutrophil Count 4.9 X10^3/uL (2.0-7.7); Basophil# 0.04 X10^3/uL; Basophil% 0.6 % (0-1); Eosinophil# 0.01 X10^3/uL; Eosinophils% 0.1 % (0-5); Hematocrit 40.3 % (37-47); Hemoglobin 13.3 g/dL (12.0-15.0); Lymphocyte # 1.28 X10^3/ul (0.83-4.51); Lymphocyte % 18.6 % (19-41); Mean Corpuscular Hgb 30.2 pg (27.0-32.0); Mean Corpuscular Volume 91.6 fL (81-99); Mean Platelet Vol. 9.3 fl (6.2-12.0); Monocyte# 0.66 X10^3/uL; Monocyte% 9.6 % (0-10); NRBC Flagged by Analyzer 0 % (0-5); Neutrophil # 4.88 X10^3/uL (2.7-7.7); Neutrophil % 70.8 % (47-70); Platelet Count 264 K/mm3 (150-450); RBC Distribution Width CV 12.4 % (11.6-14.6); RBC Distribution Width SD 41.7 fl (35.1-43.9); White Blood Count 6.9 K/mm3 (4.4-11.0)
[2021-04-29 12:36] LABS: ALB/GLOB Ratio 1.1 RATIO (0.9-2.4); AST(SGOT) 18 U/L (15-37); Alanine Aminotransfer ALT/SGPT 21 U/L (13-56); Albumin, Serum 3.5 g/dL (3.2-5.0); Alkaline Phosphatase 96 U/L (45-117); Anion Gap 8 (5-15); BUN 10 mg/dL (7-18); BUN/Creat Ratio 13.1 RATIO (10-20); Calcium,Total 8.9 mg/dL (8.5-10.1); Chloride 107 mmol/L (98-107); Creatinine, Serum 0.76 mg/dL (0.55-1.02); EST Glomerular Filtration Rate 81 mL/min (>60); Est Glom Filt Rate - Afr Amer 98 mL/min (>60); Globulin 3.2 g/dL (2.2-4.2); Glucose 65 mg/dL (74-106); Potassium 4.1 mmol/L (3.5-5.1); Protein, Total 6.7 g/dL (6.4-8.2); Sodium Level 137 mmol/L (136-145); Thyroid Stim Hormone (TSH) 3.26 uIU/mL (0.358-3.74)
== END ==
PROVIDERS: PCP Family Medicine Geriatric Medicine; Visit Provider Family Medicine Geriatric Medicine
DX: E55.9 Vitamin D deficiency, unspecified (principal); I10 Essential (primary) hypertension
CPT/HCPCS: 36415; 80053; 82306; 84443; 85025

== ENCOUNTER → 2021-05-22 13:57 | Outpatient (CLI) | payer MEDICAID, SELFPAY ==
[2021-05-15 11:33] VITALS: BMI 32.9
--- NOTE | 2021-05-22 14:01 | BI_ITS ---
MAMMOGRAPHY - UNILATERAL SCREENING: RIGHT BREAST REASON FOR EXAM: Female, 66 years old. Routine annual screening examination (unilateral). PERTINENT HISTORY: Right breast mammogram TECHNIQUE: Digital unilateral breast miriam (3D mammographic acquisition) in the CC and MLO projections. 2-D mediolateral oblique (MLO) and craniocaudad (CC) views of both breasts were obtained. CAD: Full Field Digital Mammography with Computer Added Detection was performed. COMPARISON: Previous mammogram obtained on 03/30/2020 FINDINGS: Breast Composition: Dense There are no dominant masses or suspicious calcifications. No other significant abnormalities are identified. BI/SCREEN MAMM (CAD) W/MIRIAM UNI R IMPRESSION: Stable unilateral screening mammogram. Yearly follow-up mammogram recommended. (A) ASSESSMENT CATEGORY: BIRADS Category 1: Negative. A letter regarding these results will be sent to the patient by the facility within 30 days. BR1 Approximately 10% of breast cancers are not detected by mammography. A normal mammogram should not delay biopsy of a clinically suspicious abnormality. [id number] Electronically Signed: Roland Calzada DO at 14:42 EDT Tel , Service support ,
== END ==
PROVIDERS: PCP Family Medicine Geriatric Medicine
DX: Z12.31 Encounter for screening mammogram for malignant neoplasm of breast (principal); C50.912 Malignant neoplasm of unspecified site of left female breast
CPT/HCPCS: 77063; 77067

== ENCOUNTER 2021-06-04 14:27 | Emergency (ER) | payer MEDICAID, SELFPAY ==
[2021-05-15 11:33] VITALS: BMI 32.9
[2021-06-04 14:28] VITALS: BP 131/75; PULSE 80; RESP 16; TEMP 36.4; O2SAT 97; BMI 36.8
--- NOTE | 2021-06-04 14:51 | EDS_ITS ---
HPI History of Present Illness Chief Complaint: Suicidal Informant: patient Narrative Narrative: Patient states she has been feeling depressed for several weeks, and today he told another resident of the [facility] that she is feeling suicidal. She does not have a plan. She attempted suicide remotely in the past by trying to overdose on pills. She denies having any of that planned out today. She cannot tell me why she is feeling so depressed, saying it is lots of things. At this time she denies any hallucinations. She denies any recent illness but says that her COPD has been an issue since winter and she uses her albuterol inhaler maybe twice a day, not needing it right now. [facility] Medical History Acute bronchitis Allergic rhinitis Anxiety Arthritis Back pain Back problem Breast cancer CAD (coronary artery disease) Chest pain Depression Difficulty balancing when standing GERD (gastroesophageal reflux disease) hospitalization for sob HTN (hypertension) Hx of suicide attempt HX: breast cancer Hyperlipemia Hypothyroidism Incontinence Knee pain Lives in fdc Nicotine abuse OAB (overactive bladder) Schizophrenia SOB (shortness of breath) unexplained bruises Home Medications tamoxifen 20 mg PO DAILY 07/23/17 [History Last Taken 07/01/20] paliperidone 9 mg PO QHS 08/21/17 [History Last Taken 06/30/20] solifenacin 10 mg PO QHS 08/21/17 [History Last Taken 06/30/20] calcium carbonate-vitamin D3 1 tablet PO DAILY 09/20/18 [History Last Taken 07/01/20] metoprolol tartrate 25 mg PO BID 09/20/18 [History Last Taken 07/01/20] multivitamin 1 tablet PO DAILY 05/15/20 [History Last Taken 07/01/20] omeprazole 40 mg capsule,delayed release 40 mg PO QHS 05/15/20 [History Last Taken 06/30/20] docusate sodium 100 mg PO BID 05/29/20 [History Last Taken 07/01/20] ibuprofen 400 mg tablet 400 mg PO Q8H PRN #20 tablet 08/17/20 [Rx Last Taken Unknown] albuterol sulfate 90 mcg/actuation aerosol inhaler 2 puff INHALATION Q6H PRN #18 gm 03/25/21 [Rx Last Taken Unknown] levothyroxine 137 mcg tablet 137 mcg PO DAILY tab 04/04/21 [History Last Taken Unknown] valsartan 320 mg-hydrochlorothiazide 25 mg tablet 1 tab PO DAILY tab 04/04/21 [History Last Taken Unknown] potassium chloride 20 meq PO DAILY 06/04/21 [History Last Taken Unknown] Allergy/AdvReac Type Severity Reaction Status Date / Time milk AdvReac Diarrhea Verified 06/04/21 15:12 Family History Sister Heart disease CVA (cerebral vascular accident) Mother Cancer Father Cancer Surgical History History of History of mastectomy Hx of bladder repair surgery Social History Smoking Status: Never smoker alcohol intake: former substance use type: does not use caffeine: Yes what type of physical activity do you participate in: none frequency: does not exercise ROS ROS ED Constitutional Constitutional ED: Denies chills or fever(s) Eyes Eyes: Denies change in vision or diplopia ENT ENT ED: Denies rhinorrhea or sore throat Cardiovascular Cardiovascular: Denies chest pain or palpitations Respiratory/Chest Respiratory/Chest: Reports cough; Denies dyspnea or excessive phlegm production Gastrointestinal Gastrointestinal: Denies abdominal pain, diarrhea, nausea or vomiting Genitourinary Genitourinary ED: Denies dysuria or hematuria Musculoskeletal Musculoskeletal: Denies back pain or neck pain Integumentary Denies abscess or rash Neurologic Neurologic: Denies headache(s), paresthesias or weakness Psychiatric Psychiatric: Reports depression, suicidal ideation and suicidal thoughts; Denies homicidal ideation EXAM Physical Exam Const Vital Signs: 06/04/21 14:28 Temperature 97.5 F L Temperature Source Oral Pulse Rate 80 Respiratory Rate 16 Blood Pressure 131/75 H Blood Pressure Mean 93 Pulse Ox 97 Oxygen Delivery Method Room Air Positive well nourished and well developed General Appearance ED: well developed and NAD HEENT Reports moist mucous membranes normocephalic and atraumatic Eyes PERRL and EOMs intact bilaterally General Eye ED: Negative for scleral icterus Neck no lymphadenopathy and supple Resp normal respiratory effort and clear to auscultation bilaterally Cardio no murmurs Rate: regular rate Rhythm: regular rhythm GI non-tender and non-distended Auscultation: normoactive bowel sounds Palpation: soft Back/Spine no CVA tenderness and normal ROM Extremity normal to inspection General Extremety ED: Negative for edema General Extremity: Negative for edema Neuro oriented x3, CN's II-XII intact bilaterally, no sensory deficits noted and gait normal Sensorium / Orientation: alert Motor Exam: strength 5/5 throughout Psych mental status grossly normal, thought process normal, cooperative, activity/motor behavior normal and denies homicidal ideation Mood & Affect: depressed Thought Content: suicidality Skin Lesions: no lesions Rashes: no rashes MDM MDM MDM Narrative Medical decision making narrative: Patient is medically cleared. Social work was consulted, they discussed with the patient and found out that she has an appointment with psychology/counseling tomorrow, and she is not actively suicidal at this time, contracts for safety, and she and the [facility] are comfortable with her going back there tonight and talking with her counselor in the morning. This is okay with me. Lab Data Attestation: I reviewed the patient's lab results. Labs: Laboratory Results - last 24 hr 06/04/21 06/04/21 06/04/21 14:40 14:40 14:45 WBC 6.1 RBC 4.35 Hgb 13.0 Hct 40.0 MCV 92.0 MCH 29.9 MCHC 32.5 RDW Std Deviation 42.0 RDW Coeff of Jennifer 12.5 Plt Count 255 MPV 8.8 Immature Gran % (Auto) 0.500 Neut % (Auto) 62.7 Lymph % (Auto) 22.6 Hardeman % (Auto) 10.6 H Eos % (Auto) 2.8 Baso % (Auto) 0.8 Absolute Neuts (auto) 3.9 Absolute Lymphs (auto) 1.39 Nucleated RBC % 0 Sodium Potassium Chloride Carbon Dioxide Anion Gap BUN Creatinine Estim Creat Clear Calc Est GFR (MDRD) Af Amer Est GFR (MDRD) Non-Af BUN/Creatinine Ratio Glucose Calcium Urine Color Straw Urine Clarity Clear Urine pH 7.0 Ur Specific Laporte 1.010 Urine Protein Negative Urine Glucose (UA) Normal Urine Ketones Negative Urine Occult Blood Negative Urine Nitrite Negative Urine Bilirubin Negative Urine Urobilinogen Normal Ur Leukocyte Esterase Negative Urine RBC 0-5 SEEN Urine WBC 0-5 SEEN Ur Squamous Epith Cells 0-5 SEEN Urine Bacteria 0 SEEN Urine Mucus 0 SEEN Urine Opiates Screen NEGATIVE Urine Methadone Screen NEGATIVE Ur Barbiturates Screen NEGATIVE Ur Phencyclidine Scrn NEGATIVE Ur Amphetamines Screen NEGATIVE U Methamphetamin-MDMA NEGATIVE U Benzodiazepines Scrn NEGATIVE Urine Cocaine Screen NEGATIVE U Cannabinoids Screen NEGATIVE Ur Drug Screen Comment Ethyl Alcohol 06/04/21 06/04/21 14:45 14:45 WBC RBC Hgb Hct MCV MCH MCHC RDW Std Deviation RDW Coeff of Jennifer Plt Count MPV Immature Gran % (Auto) Neut % (Auto) Lymph % (Auto) Hardeman % (Auto) Eos % (Auto) Baso % (Auto) Absolute Neuts (auto) Absolute Lymphs (auto) Nucleated RBC % Sodium 136 Potassium 3.5 Chloride 104 Carbon Dioxide 26.0 Anion Gap 6 BUN 14 Creatinine 0.80 Estim Creat Clear Calc 56.19 Est GFR (MDRD) Af Amer 93 Est GFR (MDRD) Non-Af 77 BUN/Creatinine Ratio 17.5 Glucose 115 H Calcium 9.4 Urine Color Urine Clarity Urine pH Ur Specific Laporte Urine Protein Urine Glucose (UA) Urine Ketones Urine Occult Blood Urine Nitrite Urine Bilirubin Urine Urobilinogen Ur Leukocyte Esterase Urine RBC Urine WBC Ur Squamous Epith Cells Urine Bacteria Urine Mucus Urine Opiates Screen Urine Methadone Screen Ur Barbiturates Screen Ur Phencyclidine Scrn Ur Amphetamines Screen U Methamphetamin-MDMA U Benzodiazepines Scrn Urine Cocaine Screen U Cannabinoids Screen Ur Drug Screen Comment Ethyl Alcohol < 3.0 Discharge Plan Triage Chief Complaint: Suicidal ED Provider: Sven Nolasco Dx/Rx/DC Orders Clinical Impression: Suicidal thoughts, Depression Instructions: CONTRACT, No Harm, ED Depression Prescriptions: No Action multivitamin Tablet 1 tablet PO DAILY RF: 0 omeprazole 40 mg capsule,delayed release(DR/EC) 40 mg PO QHS RF: 0 ibuprofen 400 mg tablet 400 mg PO Q8H PRN (Reason: pain) Qty: 20 RF: 0 albuterol sulfate 90 mcg/actuation HFA aerosol inhaler 2 puff INHALATION Q6H PRN (Reason: shortness of breath or wheezing) Qty: 18 RF: 1 valsartan-hydrochlorothiazide 320-25 mg tablet 1 tab PO DAILY RF: 0 levothyroxine 137 mcg tablet 137 mcg PO DAILY RF: 0 tamoxifen 20 MG tablet 20 mg PO DAILY RF: 0 solifenacin 10 MG tablet 10 mg PO QHS RF: 0 paliperidone 9 MG tablet extended release 24hr 9 mg PO QHS RF: 0 metoprolol tartrate 25 tablet 25 mg PO BID RF: 0 calcium carbonate-vitamin D3 1 EACH tablet 1 tablet PO DAILY RF: 0 docusate sodium 100 MG capsule 100 mg PO BID RF: 0 potassium chloride 20 mEq Packet 20 meq PO DAILY RF: 0 Primary Care Provider: Dg Ge Chi Referrals: Counselor, your [Other] - 06/05/21 (As scheduled) Dg Ge Chi, MD [Primary Care Provider] - Disposition Disposition: Home, Self Care
[2021-06-04 14:58] LABS: Absolute Lymphocyte Count 1.39 X10^3/uL (0.83-4.51); Absolute Neutrophil Count 3.9 X10^3/uL (2.0-7.7); Basophil# 0.05 X10^3/uL; Basophil% 0.8 % (0-1); Eosinophil# 0.17 X10^3/uL; Eosinophils% 2.8 % (0-5); Lymphocyte # 1.39 X10^3/ul (0.83-4.51); Lymphocyte % 22.6 % (19-41); Mean Corp Hgb Conc 32.5 g/dL (32-36); Mean Corpuscular Hgb 29.9 pg (27.0-32.0); Mean Platelet Vol. 8.8 fl (6.2-12.0); Monocyte# 0.65 X10^3/uL; Monocyte% 10.6 % (0-10); NRBC Flagged by Analyzer 0 % (0-5); Neutrophil # 3.85 X10^3/uL (2.7-7.7); Neutrophil % 62.7 % (47-70); Platelet Count 255 K/mm3 (150-450); RBC Distribution Width CV 12.5 % (11.6-14.6); Red Blood Count 4.35 M/mm3 (4.2-5.4); White Blood Count 6.1 K/mm3 (4.4-11.0)
[2021-06-04 14:59] LABS: Bacteria 0 SEEN /hpf (None Seen); Mucous, Urine 0 SEEN /hpf (<or=2+)
[2021-06-04 15:00] LABS: Color, Urine Straw (Yellow); Glucose, Dipstick Normal (Normal); Ketone-Dipstick Negative (Negative); Leukocyte Esterase-Dipstick Negative /ul (Negative); Nitrite-Dipstick Negative (Negative); Occult Blood-Urine Negative /ul (Negative); Protein-Dipstick Negative (Negative); Urine Bilirubin Dipstick Negative (Negative); Urine Clarity Clear (Clear); Urine Urobilinogen Normal (Normal)
[2021-06-04 15:12] LABS: Anion Gap 6 (5-15); BUN 14 mg/dL (7-18); BUN/Creat Ratio 17.5 RATIO (10-20); Calcium,Total 9.4 mg/dL (8.5-10.1); Chloride 104 mmol/L (98-107); EST Glomerular Filtration Rate 77 mL/min (>60); Est Glom Filt Rate - Afr Amer 93 mL/min (>60); Estimated Creatinine Clearance 56.19 ml/min; Glucose 115 mg/dL (74-106); Potassium 3.5 mmol/L (3.5-5.1); Sodium Level 136 mmol/L (136-145)
[2021-06-04 15:14] LABS: Red Blood Cells-Urine 0-5 SEEN /hpf (0-5); Squamous Epithelial Cells - UA 0-5 SEEN /hpf (5-10); White Blood Cells 0-5 SEEN /hpf (0-5)
[2021-06-04 15:17] LABS: Amphetamine Urine VISTA NEGATIVE (<1000 ng/mL); Barbiturate Urine VISTA NEGATIVE (< 200 ng/mL); Benzodiazepine Urine VISTA NEGATIVE (< 200 ng/mL); Cocaine Urine VISTA NEGATIVE (< 300 ng/mL); Ecstacy Urine VISTA NEGATIVE (< 500 ng/mL); Methadone Urine VISTA NEGATIVE (< 300 ng/mL); PCP Urine VISTA NEGATIVE (< 25 ng/mL); THC Urine VISTA NEGATIVE (< 50 ng/mL); Vista UDS pH Range 7
[2021-06-04 15:19] LABS: Alcohol, Blood (Medical)-Serum < 3.0 mg/dL
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
[2021-06-04 17:04] VITALS: PULSE 67; RESP 16; O2SAT 97
== END 2021-06-04 17:04 | disposition home or self-care (01) ==
PROVIDERS: Emergency Provider Emergency Medicine; PCP Family Medicine Geriatric Medicine
DX: F32.9 Major depressive disorder, single episode, unspecified (principal); R45.851 Suicidal ideations; J44.9 Chronic obstructive pulmonary disease, unspecified; Z79.899 Other long term (current) drug therapy; I25.10 Atherosclerotic heart disease of native coronary artery without angina pectoris; M19.90 Unspecified osteoarthritis, unspecified site; F41.9 Anxiety disorder, unspecified; K21.9 Gastro-esophageal reflux disease without esophagitis; I10 Essential (primary) hypertension; E78.5 Hyperlipidemia, unspecified; F20.9 Schizophrenia, unspecified
CPT/HCPCS: 36415; 80048; 80307; 81001; 82077; 85025; 99285

== ENCOUNTER → 2021-07-29 15:09 | Outpatient (CLI) | payer MEDICAID, SELFPAY ==
[2021-07-29 17:03] LABS: Absolute Lymphocyte Count 1.66 X10^3/uL (0.83-4.51); Absolute Neutrophil Count 4.5 X10^3/uL (2.0-7.7); Basophil# 0.05 X10^3/uL; Basophil% 0.7 % (0-1); Eosinophil# 0.01 X10^3/uL; Eosinophils% 0.1 % (0-5); Hematocrit 38.9 % (37-47); Hemoglobin 13.1 g/dL (12.0-15.0); Lymphocyte # 1.66 X10^3/ul (0.83-4.51); Lymphocyte % 24.9 % (19-41); Mean Corp Hgb Conc 33.7 g/dL (32-36); Mean Corpuscular Volume 89.2 fL (81-99); Mean Platelet Vol. 9.5 fl (6.2-12.0); Monocyte# 0.46 X10^3/uL; Monocyte% 6.9 % (0-10); NRBC Flagged by Analyzer 0 % (0-5); Neutrophil # 4.48 X10^3/uL (2.7-7.7); Neutrophil % 67.3 % (47-70); Platelet Count 263 K/mm3 (150-450); RBC Distribution Width CV 12.5 % (11.6-14.6); RBC Distribution Width SD 41.2 fl (35.1-43.9); Red Blood Count 4.36 M/mm3 (4.2-5.4); White Blood Count 6.7 K/mm3 (4.4-11.0)
[2021-07-29 17:06] LABS: Vitamin D,25 Hydroxy 33.7 ng/mL
[2021-07-29 17:13] LABS: AST(SGOT) 15 U/L (15-37); Alanine Aminotransfer ALT/SGPT 20 U/L (13-56); Albumin, Serum 3.3 g/dL (3.2-5.0); Alkaline Phosphatase 77 U/L (45-117); Anion Gap 10 (5-15); BUN 8 mg/dL (7-18); BUN/Creat Ratio 10.4 RATIO (10-20); Calcium,Total 8.9 mg/dL (8.5-10.1); Chloride 95 mmol/L (98-107); Creatinine, Serum 0.77 mg/dL (0.55-1.02); EST Glomerular Filtration Rate 80 mL/min (>60); Est Glom Filt Rate - Afr Amer 97 mL/min (>60); Globulin 3.2 g/dL (2.2-4.2); Glucose 122 mg/dL (74-106); Potassium 3.6 mmol/L (3.5-5.1); Protein, Total 6.5 g/dL (6.4-8.2); Sodium Level 130 mmol/L (136-145); Thyroid Stim Hormone (TSH) 2.47 uIU/mL (0.358-3.74)
== END ==
PROVIDERS: PCP Family Medicine Geriatric Medicine; Visit Provider Family Medicine Geriatric Medicine
DX: E55.9 Vitamin D deficiency, unspecified (principal); I10 Essential (primary) hypertension
CPT/HCPCS: 36415; 80053; 82306; 84443; 85025

== ENCOUNTER 2021-09-08 14:02 | Emergency (ER) | payer MEDICAID, SELFPAY ==
[2021-09-08 14:03] VITALS: BP 146/122; BP 152/73; PULSE 71; PULSE 73; RESP 21; RESP 23; TEMP 36.6; O2SAT 94; O2SAT 95; BMI 35.9
--- NOTE | 2021-09-08 14:56 | EDS_ITS ---
HPI <Dr. Man Newman MD - Last Filed: 09/17/21 13:54> History of Present Illness Chief Complaint: Hypertension Informant: patient Onset/Context/Timing Onset: Today Context: Sudden Onset Timing: Intermittent Quality: Room spinning Location: Not applicable Current Severity: Gone Maximum Severity: Severe Worsened by: Unable to determine because of cognitive impairment Relieved by: Circumflex Associated Symptoms Associated Symptoms: Nausea and vomiting Narrative Narrative: Patient is a 66-year-old woman who resides at a long term and is cognitively impaired was sent to the emergency room for evaluation. Chief complaint is hypertension. Patient states she is not sure why she is here after asking her several questions it was determined that she had a spinning sensation associate with nausea vomiting uncertain what exacerbated precipitated the symptom. Presently she does not have symptoms. She denies seeing double. She denies trouble with speaking. She denies shortness of breath. She denies pain in her chest or abdomen. Prior similar symptoms: No Recent Illness/Hospitalization: No PFSH <Dr. Man Newman MD - Last Filed: 09/17/21 13:54> PFSH Medical History Acute bronchitis Allergic rhinitis Anxiety Anxiety Arthritis Back pain Back problem Breast CA Breast cancer CAD (coronary artery disease) Chest pain Coronary artery disease Depression Depression Difficulty balancing when standing GERD (gastroesophageal reflux disease) hospitalization for sob HTN (hypertension) Hx of suicide attempt HX: breast cancer Hyperlipemia Hypertension Hypothyroidism Incontinence Knee pain Lives in long term Nicotine abuse OAB (overactive bladder) Schizophrenia SOB (shortness of breath) unexplained bruises Home Medications tamoxifen 20 mg PO DAILY 07/23/17 [History Last Taken 07/01/20] paliperidone 9 mg PO QHS 08/21/17 [History Last Taken 06/30/20] solifenacin 10 mg PO QHS 08/21/17 [History Last Taken 06/30/20] calcium carbonate-vitamin D3 1 tablet PO DAILY 09/20/18 [History Last Taken 07/01/20] metoprolol tartrate 25 mg PO BID 09/20/18 [History Last Taken 07/01/20] multivitamin 1 tablet PO DAILY 05/15/20 [History Last Taken 07/01/20] omeprazole 40 mg capsule,delayed release 40 mg PO QHS 07/28/20 [History Last Taken 06/30/20] docusate sodium 100 mg PO BID 05/29/20 [History Last Taken 07/01/20] ibuprofen 400 mg tablet 400 mg PO Q8H PRN #20 tablet 08/17/20 [Rx Last Taken Unknown] levothyroxine 137 mcg tablet 137 mcg PO DAILY tab 04/04/21 [History Last Taken Unknown] valsartan 320 mg-hydrochlorothiazide 25 mg tablet 1 tab PO DAILY tab 04/04/21 [History Last Taken Unknown] potassium chloride 20 meq PO DAILY 06/04/21 [History Last Taken Unknown] albuterol sulfate 90 mcg/actuation aerosol inhaler 2 puff INHALATION Q6H PRN #18 gm 06/28/21 [Rx Last Taken Unknown] meclizine 25 mg PO BID #20 tab 09/08/21 [Rx Last Taken Unknown] Allergy/AdvReac Type Severity Reaction Status Date / Time milk AdvReac Diarrhea Verified 09/08/21 14:14 Family History Sister Heart disease CVA (cerebral vascular accident) Mother Cancer Father Cancer Surgical History History of History of mastectomy Hx of bladder repair surgery Social History (Updated 09/08/21 @ 15:[address] Man Newman MD) household members: other details: intermediate Smoking Status: Former smoker quit date: 10/19/20 pack-years: 50 alcohol intake: former substance use type: does not use caffeine: Yes what type of physical activity do you participate in: none frequency: does not exercise ROS <Dr. Man Newman MD - Last Filed: 09/17/21 13:54> ROS ED Review of Systems ROS Unobtainable: due to mental status Constitutional Constitutional ED: Denies chills or fever(s) Eyes Eyes: Denies blurry vision or diplopia ENT ENT ED: Denies sore throat Cardiovascular Cardiovascular: Denies chest pain Respiratory/Chest Respiratory/Chest: Denies cough or dyspnea Gastrointestinal Gastrointestinal: Reports nausea and vomiting; Denies abdominal pain Genitourinary Genitourinary ED: Denies dysuria or hematuria Musculoskeletal Musculoskeletal: Denies back pain or neck pain Neurologic Neurologic: Denies headache(s), paresthesias or weakness EXAM <Dr. Man Newman MD - Last Filed: 09/17/21 13:54> Physical Exam Const Vital Signs: 09/08/21 14:03 09/08/21 14:09 09/08/21 16:03 Temperature 97.9 F Temperature Source Oral Pulse Rate 71 66 Respiratory Rate 21 H 16 Respiratory Pattern Normal Blood Pressure 152/73 H 153/78 H Blood Pressure Mean 99 103 Pulse Ox 94 96 Oxygen Delivery Method Room Air Room Air Positive well nourished, well developed and obese General Appearance ED: well developed and NAD; Negative for cyanotic, diaphoretic or pallor Nutritional Appearance: obese HEENT Reports TM's clear and moist mucous membranes Negative for trauma or tenderness Tympanic Membrane ED: Yes TM's clear Eyes PERRL and EOMs intact bilaterally Eyes Narrative: There is no nystagmus with central gaze. There is no APD. General Eye ED: Negative for pale conjunctiva or scleral icterus Neck no lymphadenopathy, supple and no JVD Resp normal respiratory effort and clear to auscultation bilaterally Cardio regular rate, regular rhythm, S1 normal heart sound, S2 normal heart sound and no murmurs GI normal to inspection, nondistended, normoactive bowel sounds and non-tender Back/Spine no CVA tenderness Thoracic Spine / Upper Back: Negative for thoracic spinal tenderness or par aspinal muscle tenderness Extremity normal to inspection General Extremety ED: Negative for edema or tenderness General Extremity: Negative for edema Neuro No oriented x3, CN's II-XII intact bilaterally and no sensory deficits noted Neuro Narrative: The eye askew test was negative. The hint test was negative. Ann-Marie-Hallpike maneuver was positive. Tim maneuver was performed. Patient symptoms resolved A head was to the left. When her head went to the right she reported significant nausea and began to vomit and the maneuver was aborted. There was no dysmetria. DTRs were symmetric with no clonus or Babinski sign. Sensorium / Orientation: alert Motor Exam: strength 5/5 throughout Psych mental status grossly normal Skin no rashes or lesions noted and no wounds General Skin Exam: Negative for jaundice or pallor <Dr. Kamar Rooney MD - Last Filed: 09/08/21 17:02> Physical Exam Const Vital Signs: 09/08/21 14:03 09/08/21 14:09 09/08/21 16:03 Temperature 97.9 F Temperature Source Oral Pulse Rate 71 66 Respiratory Rate 21 H 16 Respiratory Pattern Normal Blood Pressure 152/73 H 153/78 H Blood Pressure Mean 99 103 Pulse Ox 94 96 Oxygen Delivery Method Room Air Room Air [facility] <Dr. Man Newman MD - Last Filed: 09/17/21 13:54> [facility] Narrative Medical decision making narrative: History is limited due to cognitive impairment. Based on physical exam patient has paroxysmal benign positional vertigo. Treatment is Tim maneuver however since patient was unable to tolerate this it was aborted and she was treated with IV Versed and p.o. Valium since there is limited supply of IV Valium nationwide. Patient was reassessed at 1540. She states her dizziness has resolved. [place]- Hallpike maneuver was performed. She has no symptoms of the head to the left she developed symptoms with her head to the right and had to sit up and had dry heaves. Zofran was ordered. Apparently the Valium that was ordered has not b een given. Patient's history is limited but her physical exam is consistent with paroxysmal benign positional vertigo. Patient's care was transitioned to the afternoon physician Dr. Kamar Ibanez [facility]. He will make disposition. Radiography Diagnostic Testing: Clinical Impression(s) from Imaging Studies Brain CT 09/08/21 16:21 IMPRESSION: 1. No acute abnormality. 2. Moderate chronic white matter atherosclerotic change. Electronically Signed: Jaret Magaña MD at 16:49 EST Tel , Service support , <Dr. Kamar Rooney MD - Last Filed: 09/08/21 17:02> [facility] Narrative Medical decision making narrative: Nevin-patient was seen by me. I evaluated her, she is significantly improved. She has normal cerebellar. Normal [id number] and [id number]. She does not appear in any distress. I believe she is safe for discharge Radiography Diagnostic Testing: Clinical Impression(s) from Imaging Studies Brain CT 09/08/21 16:21 IMPRESSION: 1. No acute abnormality. 2. Moderate chronic white matter atherosclerotic change. Electronically Signed: Jaret Magaña MD at 16:49 EST Tel , Service support , Discharge Plan Triage Chief Complaint: Hypertension ED Provider: Kamar Rooney Dx/Rx/DC Orders Clinical Impression: Benign paroxysmal positional vertigo, bilateral Instructions: ED BPV Vertigo Prescriptions: New meclizine 25 mg tablet 25 mg PO BID Qty: 20 RF: 0 No Action multivitamin Tablet 1 tablet PO DAILY RF: 0 omeprazole 40 mg capsule,delayed release(DR/EC) 40 mg PO QHS RF: 0 ibuprofen 400 mg tablet 400 mg PO Q8H PRN (Reason: pain) Qty: 20 RF: 0 albuterol sulfate 90 mcg/actuation HFA aerosol inhaler 2 puff INHALATION Q6H PRN (Reason: shortness of breath or wheezing) Qty: 18 RF: 1 valsartan-hydrochlorothiazide 320-25 mg tablet 1 tab PO DAILY RF: 0 levothyroxine 137 mcg tablet 137 mcg PO DAILY RF: 0 tamoxifen 20 MG tablet 20 mg PO DAILY RF: 0 solifenacin 10 MG tablet 10 mg PO QHS RF: 0 paliperidone 9 MG tablet extended release 24hr 9 mg PO QHS RF: 0 metoprolol tartrate 25 tablet 25 mg PO BID RF: 0 calcium carbonate-vitamin D3 1 EACH tablet 1 tablet PO DAILY RF: 0 docusate sodium 100 MG capsule 100 mg PO BID RF: 0 potassium chloride 20 mEq Packet 20 meq PO DAILY RF: 0 Primary Care Provider: Dg Ge Chi Referrals: Dg Ge Chi, MD [Primary Care Provider] - Disposition Disposition: Home, Self Care Discharge Date/Time: 09/08/21 17:36
[2021-09-08] MEDS: Midazolam 2 MG/2 ML Syringe 1 MG IV (15:03)
[2021-09-08] MEDS: diazePAM 5 MG Tablet PO (15:18)
[2021-09-08 16:03] VITALS: BP 153/78; PULSE 66; RESP 16; O2SAT 96
[2021-09-08] MEDS: Ondansetron 4 MG/2 ML Vial IV (16:16)
--- NOTE | 2021-09-08 16:21 | CT_ITS ---
STUDY: CT BRAIN WITHOUT CONTRAST REASON FOR EXAM: Female, 66 years old. Nausea vomiting hypertension and vertigo RADIATION DOSAGE (If Supplied By Facility): CTDIvol = ( 44.99 ) mGy, DLP = ( 745.49 ) mGycm TECHNIQUE: Transaxial CT imaging of the brain was performed without administration of intravenous contrast material. Individualized dose optimization techniques were used for this CT. COMPARISON: 08 April 2021 FINDINGS: There are moderate bilateral posterior frontal and deep parietal and periventricular chronic white matter ischemic changes. Mass effect, acute intracranial hemorrhage, extra parenchymal fluid collections, hydrocephalus or herniation. The skull is intact. Appearance is similar to prior. CT/Brain/Head without Contrast IMPRESSION: 1. No acute abnormality. 2. Moderate chronic white matter atherosclerotic change. Electronically Signed: Jaret Magaña MD at 16:49 EST Tel , Service support ,
[2021-09-08 17:32] VITALS: BP 123/89; PULSE 84; RESP 16; O2SAT 99
--- NOTE | 2021-09-08 17:33 | ED.RN ---
ATTEMPTED TO CONTACT GUARDIAN NO ANSWER
--- NOTE | 2021-09-08 17:36 | ED.RN ---
REPORT CALLED TO NURSING HOME STAFF
== END 2021-09-08 17:36 | disposition home or self-care (01) ==
PROVIDERS: Emergency Provider Emergency Medicine; PCP Family Medicine Geriatric Medicine
DX: H81.13 Benign paroxysmal vertigo, bilateral (principal); I10 Essential (primary) hypertension; E66.9 Obesity, unspecified; I25.10 Atherosclerotic heart disease of native coronary artery without angina pectoris; E03.9 Hypothyroidism, unspecified; K21.9 Gastro-esophageal reflux disease without esophagitis; Z87.891 Personal history of nicotine dependence; Z79.899 Other long term (current) drug therapy
CPT/HCPCS: 70450; 96374; 96375; 99285; J2405

== ENCOUNTER 2021-10-07 15:00 | Outpatient (RCR) | payer MEDICAID, SELFPAY ==
--- NOTE | 2021-10-07 16:06 | HP.PTEVAL_ITS ---
Patient's Visit Information MARIAM ESCUDERO is a 66 year old F referred to Physical Therapy by Dr. Dg Ge MD with a diagnosis of Debility. Date of Evaluation: 10/07/21 Physical Therapist: Brandy Londono DPT - Visit Plan Frequency: 2x /Week Duration: 4 Weeks Plan: Focus on LE and core strength/stabilization and functional mobility - Subjective Patient comes today with a caregiver. Mariam has been declining- she has back pain- sees Dr. Valle for pain mgmt- she has had injections- but insurance is saying she does not qualify. [facility] so there has been some obvious decline- has to be able to perform ADL's- no medical or hands on treatment- she needs to be able to dress/bathe and feed herself. She brought it to Dr. Ge assessment who wanted her to have PT/OT to see if she can make gains or would need more assistance. She has a tremor due to her medication. Decline they have seen is Cognitive- Balance- going up/down stairs- Fall- last one was in the parking lot out of the van last week. Laundry is downstairs- she needs help making her bed- trouble dressing- hygiene related issues. 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 She has a chore each week which makes it very challenging to complete. Issues getting in/out of the car. She has been living at the treatment center for about 8 years. She has problems with bed mobility and getting around. There are stairs throughout the facility. She is not allowed to use an assistive device in the facility. She has had back pain very bad since last winter- pain is located in the low back- radiates to the knee on the right. Did have chiropractic with Dr. Castro. - Objective Posture: FH, RS- can correct but does not maintain. Gait: no AD- poor posture- decreased constance with step to gait pattern and shuffling pattern. FWW: much improved reports decreased pain and balance deficit- she has a step through gait pattern and normal constance. Stairs: asc/desc 8 recip with rails- SBA for safety. HR/TR: able with UE A. SLS: unable but does weight shift. Flex: HS: severe, Gastroc: moderate. Balance: see FGA. Strength: Ankle: 5/5, Knee: 4/5, Hip: 4/5 throughout Core: fair minus - Special Tests L/S Slump test left side: Negative L/S Slump test right side: Negative - Balance/Special Test Scores Functional Gait Assessment Score: 14 % Disability: 53.3400 Lower Extremity Functional Score: 16 TUG Test Time Seconds: 18.3 30 Second Chair Rise Test Seconds: 6 - Goals Goal 1:: Patient will be I with HEP and progression Goal Time Frame: 4-6 Weeks Goal 2:: Patient will asc/desc 8 recip with 1 HR with control Goal Time Frame: 4-6 Weeks Goal 3:: Patient will improve TUG score to below 10 sec Goal Time Frame: 4-6 Weeks Goal 4:: Patient will perform 10 sit to stands without UE A Goal Time Frame: 4-6 Weeks Goal 5:: Patient will maintain proper posture t/o tx session to demo increased core s/s Goal Time Frame: 4-6 Weeks - Rehabilitation Potential Physical Therapy Diagnosis: Patient presents with hypomobility- she has decreased LE and core strength/stabilization, flexibility and muscular endurance leading to poor posture, abnormal gait and decreased ability to perform ADL's. Rehabilitation Potential: Fair - Anticipated Interventions Patient/Client Instruction: Educate patient on: Benefits of Fitness Program Therapeutic Exercise to Include: Strength training, Endurance training, Balance training, Coordination, Agility training, Body mechanics, Postural training, Flexibilty training, Gait and locomotor training, Neuromotor development, Dynamic Lumbar Stabilization, Scapular Strength/Stabilization For the Purpose of:: To improve muscle performance and motor function Thank you for the opportunity to evaluate your patient. For Medicare and Medicare HMO plans, please review the plan of care and approve it. It will need to be FAXED BACK to us at [phone] for Medicare purposes. For Medicare only, by signing this I certify the plan of care. Please let me know if there are questions or concerns regarding this plan of care. Physician Signature:___ Date:
--- NOTE | 2021-10-07 16:31 | HP.OTEVAL_ITS ---
Patient's Visit Information MARIAM ESCUDERO is a 66 year old F, referred to Occupational Therapy by Dr. Dg Ge MD, with a diagnosis of debility. Date of Evaluation: 10/07/21 Occupational Therapist: Chrissy Ruiz, OTR/L, CHT - Subjective This 66 year old female was seen for OT eval with dx of age -related physical de bility. Patient comes today with a caregiver who states Mariam has been declining- she has back pain- sees Dr. Valle for pain mgmt- she has had injections- but insurance is saying she does not qualify. [facility] so there has been some obvious decline- has to be able to perform ADL's- no medical or hands on treatment- she needs to be able to dress/bathe and feed herself. She brought it to Dr. Ge assessment who wanted her to have PT/OT to see if she can make gains or would need more assistance. She has a tremor due to her medication. Decline they have seen is Cognitive- Balance- going up/down stairs- Fall- last one was in the parking lot out of the van last week. Laundry is downstairs- she needs help making her bed- trouble dressing- hygiene related issues. 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 She has a chore each week which makes it very challenging to complete. Issues getting in/out of the car. She has been living at the treatment center for about 8 years. She has problems with bed mobility and getting around. There are stairs throughout the facility. She is not allowed to use an assistive device in the facility. She has had back pain very bad since last winter- pain is located in the low back- radiates to the knee on the right. Did have chiropractic with Dr. Castro. per staff Cally will meet with director and see how possible it would be for a pt to participate in a more intensive therapy to work on pts strength, balance and endurance to keeping pt safe from falls. - ADLs Comments: pt states she can take a shower daily- but only takes a shower about 3x a week -pt states standing and cleaning herself is difficulty and when she raises her arms over her head she gets off balance-. pt states she is having difficulty with placing her prosthetic bra-. pt lives in alf where no assistance can be given in alf- or ad. eq. is not utilized. pt states she does laundry with assist but per career development specialist with her today this is not a shelter plan. This alf who has 6 residence- with 1-2 staff during the day and single staffed in afternoon and over the night- per staff Cally states staff interacts with planned activities- and feels staff could remind pt to perform her exercise. - Pain back pain 5 Pain Intensity Range: 5 - ROM Shoulder: right/ left WNL Elbow: right/left WNL ROM Comments: pt has tremor right hand from medication - Strength Shoulder: right 4/5 left 4/5 Elbow: right 4/5 left 4/5 Community Health Program Representative: right 45# left 35# Lateral Pinch: right 10# left 10# Tripod Pinch: right 10# left 10# Strength Comments: pt demo with generalized weakness - Quick DASH-Disab of Arm,Shoulder& Hand Quick DASH Score: 54.5450 - Goals Goal:: pt will demo a increase in bilateral UB MMT 4+/5 to increase pts ind,. with ADLS and IADls by d/c. pt will demo a increase in BUE endurance demo by the ability to Participate in PRE for 15 min without need of rest break by d.c - Rehabilitation General Assessment: pt demo with BUE weakness and limited endurance increasing safety concerns within her ability to perform ADls in her alf-. pt would benefit from skilled OT services 2x week for 4 weeks to increase pt ind. with ADLs and IADLs. Rehabilitation Potential: Fair - Anticipated Interventions Strengthening, Home Program - Visit Plan Frequency: 2x /Week Duration: 4 Weeks TEXT: Thank you for the opportunity to evaluate your patient. For Medicare and Medicare HMO plans, please review the plan of care and approve it. It will need to be FAXED BACK to us at [phone] for Medicare purposes. Please let me know if there are questions or concerns regarding this plan of care. Physician Sig nature: Date:
--- NOTE | 2022-02-28 09:54 | HP.OTDCSUM_ITS ---
It has been my pleasure to treat CUATE ESCUDERO under orders from Dr. Dg Ge MD, for the diagnosis of debility for a total of 1 visit(s). Please see the following information for a summary of their discharge status. Objective/Function: pt was seen for eval only and did not schedule apts- due to time lapse in services pt d/d at this time. Patient Goals: Regain Mobility, Regain Strength, Be More Independent in ADLS Goal:: pt will demo a increase in bilateral UB MMT 4+/5 to increase pts ind,. w ith ADLS and IADls by d/c. pt will demo a increase in BUE endurance demo by the ability to Participate in PRE for 15 min without need of rest break by d.c If there are questions or concerns regarding this patient's occupational therapy, please fell free to call me at [phone]. Thank you for the referral of this patient. Sincerely, Chrissy Ruiz, OTR/L, CHT
== END 2021-10-07 19:00 | disposition home or self-care (01) ==
LOC: OT 15:00
PROVIDERS: PCP Family Medicine Geriatric Medicine; Referring Provider Family Medicine Geriatric Medicine; Visit Provider Family Medicine Geriatric Medicine
DX: R54 Age-related physical debility (principal)
CPT/HCPCS: 97110; 97162; 97166

== ENCOUNTER 2021-10-30 12:56 | Outpatient (CLI) | payer MEDICAID, SELFPAY ==
[2021-10-30 15:19] LABS: Absolute Neutrophil Count 6.2 X10^3/uL (2.0-7.7); Basophil# 0.06 X10^3/uL; Basophil% 0.7 % (0-1); Eosinophil# 0.03 X10^3/uL; Eosinophils% 0.3 % (0-5); Hematocrit 41.3 % (37-47); Hemoglobin 13.5 g/dL (12.0-15.0); Lymphocyte % 21.5 % (19-41); Mean Corp Hgb Conc 32.7 g/dL (32-36); Mean Corpuscular Hgb 29.9 pg (27.0-32.0); Mean Corpuscular Volume 91.4 fL (81-99); Mean Platelet Vol. 9.4 fl (6.2-12.0); Monocyte# 0.58 X10^3/uL; Monocyte% 6.6 % (0-10); NRBC Flagged by Analyzer 0 % (0-5); Neutrophil % 70.1 % (47-70); Platelet Count 307 K/mm3 (150-450); RBC Distribution Width CV 12.9 % (11.6-14.6); Red Blood Count 4.52 M/mm3 (4.2-5.4); White Blood Count 8.8 K/mm3 (4.4-11.0)
[2021-10-30 15:40] LABS: Vitamin D,25 Hydroxy 39.8 ng/mL
[2021-10-30 15:44] LABS: ALB/GLOB Ratio 1.2 RATIO (0.9-2.4); AST(SGOT) 8 U/L (15-37); Alanine Aminotransfer ALT/SGPT 21 U/L (13-56); Albumin, Serum 3.6 g/dL (3.2-5.0); Alkaline Phosphatase 82 U/L (45-117); Anion Gap 7 (5-15); BUN 14 mg/dL (7-18); Calcium,Total 9.3 mg/dL (8.5-10.1); Chloride 101 mmol/L (98-107); Creatinine, Serum 0.88 mg/dL (0.55-1.02); EST Glomerular Filtration Rate 69 mL/min (>60); Est Glom Filt Rate - Afr Amer 83 mL/min (>60); Globulin 3.1 g/dL (2.2-4.2); Glucose 122 mg/dL (74-106); Potassium 3.6 mmol/L (3.5-5.1); Protein, Total 6.7 g/dL (6.4-8.2); Sodium Level 135 mmol/L (136-145); Thyroid Stim Hormone (TSH) 7.57 uIU/mL (0.358-3.74)
== END 2021-10-30 23:59 | disposition short-term general hospital (02) ==
LOC: POLAB3 12:57
PROVIDERS: PCP Family Medicine Geriatric Medicine; Visit Provider Family Medicine Geriatric Medicine
DX: E55.9 Vitamin D deficiency, unspecified (principal); I10 Essential (primary) hypertension
CPT/HCPCS: 36415; 80053; 82306; 84443; 85025